=== PATIENT | male | born 1955 | race Caucasian/White ===

== ENCOUNTER → 2018-06-14 13:17 | Outpatient (CLI) | payer OTHER, SELFPAY ==
--- NOTE | 2018-06-14 13:19 | DI.MRI.S_ITS ---
PROCEDURE: MR HEAD/BRAIN WO CON INDICATIONS: 62-year-old male with progressive memory loss. TECHNIQUE: Non-contrast axial T1 spin echo, axial T2 fast spin echo, sagittal and axial FLAIR, coronal T2 fast spin echo, axial gradient echo, axial diffusion and ADC through the brain. COMPARISON: [facility], RG, MRI HEAD W/WO CONTRAST, 02/15/2004, 6:14. [facility], CT, HEAD WITHOUT CONTRAST, 07/28/2013, 19:02. FINDINGS: Image quality: Partially degraded by motion artifact. CSF spaces: Ventricles appear symmetric in size and shape. Basal cisterns are patent. No extra-axial fluid collections. Brain: No intracranial bleeds or mass effects. Small chronic left cerebellar infarct. There is cerebral volume loss for age. There are periventricular and deep white matter chronic small vessel ischemic changes. Brainstem appears normal. Diffusion-weighted images show no acute ischemic insults. No chronic ischemic insults. Normal intravascular flow voids are present. Skull and face: Calvarial bone marrow is normal in signal. Orbits are normal. Sinuses: Mild right maxillary sinus the coastal thickening. Minimal left maxillary sinus mucosal thickening. IMPRESSION: 1. Mild volume loss. Mild small vessel ischemic disease. 2. Small chronic left cerebellar infarct. 3. No acute process. 4. Maxillary sinus disease. Dictated by: Shyam Jimenez M.D. on 06/16/2018 at 8:54 Approved by: Shyam Jimenez M.D. on 06/16/2018 at 8:56
== END ==
PROVIDERS: Visit Provider Internal Medicine
DX: G31.84 Mild cognitive impairment of uncertain or unknown etiology (principal); I67.82 Cerebral ischemia; I63.9 Cerebral infarction, unspecified; J32.0 Chronic maxillary sinusitis
CPT/HCPCS: 70551

== ENCOUNTER 2018-06-18 13:38 | Emergency (ER) | payer OTHER, SELFPAY ==
[2018-06-18 13:43] VITALS: BP 190/77; PULSE 58; RESP 18; TEMP 36.5; O2SAT 99
--- NOTE | 2018-06-18 14:09 | ED_ITS ---
HPI - SOB/Dyspnea General Chief Complaint: Shortness of Breath/Dyspnea Stated Complaint: heart rate 42-48, difficult to breathe Time Seen by Provider: 06/18/18 13:53 Related Data Home Medications Medication Instructions Recorded Confirmed epoetin ryan [Epogen] IM/IV #0 06/04/16 ferrous sulfate [Iron (ferrous 1 tab PO Q DAY #0 06/04/16 sulfate)] Previous Rx's Medication Instructions Recorded ondansetron [Zofran ODT] 4 mg SUBLINGUAL Q6HP PRN #12 odt 06/04/16 Allergies Allergy/AdvReac Type Severity Reaction Status Date / Time codeine [CODEINE] Allergy Intermediate Unverified 10/09/17 12:00 morphine [MORPHINE] Allergy Unknown Unverified 10/09/17 12:00 influenza virus vaccine, AdvReac Severe WAS IN Unverified 10/09/17 12:00 specific COMA X3 WKS [INFLUENZA VIRUS VACC,SPECIFIC] duloxetine [DULOXETINE] AdvReac Intermediate SUICIDAL Unverified 10/09/17 12:00 IDEATION levofloxacin [LEVOFLOXACIN] AdvReac Intermediate KNOCKED Unverified 10/09/17 12 :00 OUT; FELL ON FLOOR diazepam [DIAZEPAM] AdvReac Mild STONED Unverified 10/09/17 12:00 FOR 3-5 DAYS TOBACCO Allergy Mild Uncoded 10/09/17 12:00 [facility] Social History Smoking Status: Never smoker Exam Initial Vital Signs Initial Vital Signs: Vital Signs Temperature 97.7 F 06/18/18 13:43 Pulse Rate 58 L 06/18/18 13:43 Respiratory Rate 18 06/18/18 13:43 Blood Pressure 190/77 H 06/18/18 13:43 Pulse Oximetry 99 06/18/18 13:43 Course Orders Ordered: ED Orders 06/18/18 13:55 EKG-12 Lead Routine Vital Signs - 8 hr 06/18/18 13:43 Temperature 97.7 F Pulse Rate 58 L Respiratory Rate 18 Blood Pressure 190/77 H Pulse Oximetry 99 Discharge Plan Departure Prescriptions: No Action ferrous sulfate [Iron (ferrous sulfate)] 325 MG tablet 1 tab PO Q DAY Qty: 0 RF: 0 epoetin ryan [Epogen] 10,000 UNIT/1 ML solution IM/IV Qty: 0 RF: 0 ondansetron [Zofran ODT] 4 MG tablet,disintegrating 4 mg Sublingual Q6HP PRNQty: 12 RF: 0
--- NOTE | 2018-06-18 14:25 | PC.NURSE ---
change of medication dosing, atenolol increase to 100mg the last two days, today pt with foggy, red fog, no clear pt reports, with multiple eye surgery, pt checked his blood glucose normal, and noted heart rate at 45, usually 70's
--- NOTE | 2018-06-18 14:27 | PC.NURSE ---
also pt reports, uri sxs the last 6 months pt dialysis schedule sat,,sat. sometimes saturday and saturday, depending on fluid levels. pt denies fever,nausea or vomiting.
[2018-06-18 14:30] VITALS: BP 145/45; PULSE 53; RESP 21; O2SAT 100
--- NOTE | 2018-06-18 14:30 | DI.RAD.S_ITS ---
PROCEDURE: XR CHEST 1V INDICATIONS: decrease heart rate TECHNIQUE: One view of the chest was acquired. COMPARISON: [facility], , CHEST 1 VIEW, 06/05/2016, 18:05. FINDINGS: Surgical changes and devices: None. Lungs and pleura: No pleural effusions or pneumothorax. Lungs are clear. Mediastinum: Mediastinal contours appear normal. Heart size is enlarged. Bones and chest wall: No suspicious bony lesions. Overlying soft tissues appear unremarkable. IMPRESSION: Cardiomegaly. No acute pulmonary pathology. Dictated by: Jim Olvera M.D. on 06/18/2018 at 14:47 Approved by: Jim Olvera M.D. on 06/18/2018 at 14:47
[2018-06-18 14:39] LABS: Add Manual Diff / Slide Review NO; Basophils Percent Auto 0.6 % (0-2); Hematocrit 32.6 % (41-53); Mean Corpuscular HGB Conc 33.7 % (30-36); Mean Corpuscular Hemoglobin 32.4 PG (26-34); Mean Corpuscular Volume 96.1 fL (80-100); Monocytes Percent Auto 7.5 % (3-14); Neutrophils Absolute Auto 5100 /uL (1500-7000); Neutrophils Percent Auto 64.9 % (50-75); Platelet Count 303 X10^3/uL (150-400); Red Blood Cell Count 3.39 X10^6/uL (4.5-5.9); Red Cell Distribution Width 14.4 % (11.6-14.8); White Blood Cell Count 7.9 X10^3/uL (4.5-11.0)
[2018-06-18 14:45] LABS: Alanine Aminotransferase 33 IU/L (21-72); Albumin 4.5 g/dL (3.5-5.0); Albumin Globulin Ratio 1.6 (1.0-2.8); Alkaline Phosphatase 73 U/L (38-126); Aspartate Aminotransferase 35 IU/L (17-59); BUN Creatinine Ratio 16.3 (6-22); Bilirubin Total 0.3 mg/dL (0.2-1.3); Blood Urea Nitrogen 52 mg/dL (9-20); Calcium 9.1 mg/dL (8.4-10.2); Carbon Dioxide 22 mmol/L (22-32); Chloride 101 mmol/L (98-107); Creatine Kinase 185 U/L (55-170); Estimated Glomerular Filt Rate 19.7 mL/min (>60); Globulin 2.9 g/dL (1.7-4.1); Glucose 248 mg/dL (80-110); Potassium 5.5 mmol/L (3.4-5.1); Sodium 139 mmol/L (137-145); Total Protein 7.4 g/dL (6.3-8.2)
[2018-06-18 14:57] LABS: Troponin I 0.051 ng/mL (0.01-0.034)
[2018-06-18 15:00] LABS: CKMB % Relative Index 2.2 % (1.5-5.0); Creatine Kinase MB 3.98 ng/mL (<2.37); HEMOLYSIS < 15 (0-50)
--- NOTE | 2018-06-18 15:25 | PC.NURSE ---
dr mattson made aware of elevated trop. no new orders.
--- NOTE | 2018-07-01 05:54 | ED.SOB ---
HPI - SOB/Dyspnea General Chief Complaint: Shortness of Breath/Dyspnea Stated Complaint: heart rate 42-48, difficult to breathe Time Seen by Provider: 06/18/18 13:53 Source: patient Mode of arrival: ambulatory Limitations: no limitations History of Present Illness Patient complains of feeling fatigued and noticing that his heart rate was low for the last couple of days. Patient states that a few days ago, his atenolol was increased from 50 mg to 100 mg daily, and the patient believes this is too much. He states that his blood pressure has been difficult to control, which is why his physician increased his atenolol. Patient states that he has not had any dyspnea per se, but that the tiredness does make him sometimes have a feeling of shortness of breath. Patient denies any abdominal pain or chest pain. He states he intends to go back to his prior dose of atenolol. Related Data Home Medications Medication Instructions Recorded Confirmed albuterol sulfate [ProAir HFA] 1 puff INHALATION PRN PRN 06/18/18 06/18/18 amlodipine 10 mg PO DAILY 06/18/18 06/18/18 atenolol 50 mg PO DAILY 06/18/18 06/18/18 azelastine 06/18/18 ezetimibe [Zetia] 10 mg PO DAILY 06/18/18 06/18/18 fluticasone-salmeterol [Advair 1 puff INHALATION BID 06/18/18 06/18/18 Diskus] gemfibrozil 600 mg PO DAILY 06/18/18 06/18/18 insulin regular hum U-500 conc 06/18/18 [Humulin R U-500 (Conc) Kwikpen] loratadine 10 mg PO DAILY 06/18/18 06/18/18 losartan 100 mg PO DAILY 06/18/18 06/18/18 Allergies Allergy/AdvReac Type Severity Reaction Status Date / Time codeine [CODEINE] Allergy Intermediate Unverified 10/09/17 12:00 morphine [MORPHINE] Allergy Unknown Unverified 10/09/17 12:00 influenza virus vaccine, AdvReac Severe WAS IN Unverified 10/09/17 12:00 specific COMA X3 WKS [INFLUENZA VIRUS VACC,SPECIFIC] duloxetine [DULOXETINE] AdvReac Intermediate SUICIDAL Unverified 10/09/17 12:00 IDEATION levofloxacin [LEVOFLOXACIN] AdvReac Intermediate KNOCKED Unverified 10/09/17 12:00 OUT; FELL ON FLOOR diazepam [DIAZEPAM] AdvReac Mild STONED Unverified 10/09/17 12:00 FOR 3-5 DAYS TOBACCO Allergy Mild Uncoded 10/09/17 12:00 Review of Systems Review of Systems All systems reviewed & are unremarkable except as noted in HPI and below Constitutional Denies chills, Denies fever(s), Denies lethargy and Denies weakness Comments: Fatigue Eyes Denies change in vision, Denies eye discharge, Denies irritation and Denies loss of vision ENT Ears, Nose, Mouth, and Throat: Denies change in voice, Denies neck pain and Denies sore throat Cardiovascular Denies chest pain, Denies irregular heart rhythm, Denies lightheadedness, Denies palpitations, Denies dyspnea, Denies dyspnea on exertion and Denies orthopnea Comments: Bradycardia Respiratory Denies cough, Denies dyspnea, Denies dyspnea on exertion and Denies wheezing Gastrointestinal Gastrointestinal: Denies abdominal pain, Denies change in bowel habits, Denies diarrhea, Denies nausea and Denies vomiting Genitourinary Denies hematuria, Denies flank pain, Denies urinary incontinence and Denies urinary urgency Musculoskeletal Denies neck pain Integumentary/Breasts Denies pruritus, Denies erythema, Denies rash and Denies wounds Neurologic Denies confusion, Denies loss of vision and Denies weakness Psychiatric Denies anxiety, Denies confusion, Denies depression, Denies homicidal ideation and Denies suicidal ideation Endocrine Denies palpitations Hematologic/Lymphatic Denies easy bruising Allergic/Immunologic Denies wheezing [facility] Medical History Acute exacerbation of CHF (congestive heart failure) (Acute) Nausea vomiting and diarrhea (Acute) NSTEMI (non-ST elevated myocardial infarction) (Acute) Viral gastroenteritis (Acute) Stage 4 chronic kidney disease (Acute) Calf pain (Acute) Contusion, lower leg (Acute) Surgical History No pertinent past surgical history (Acute) Social History Smoking Status: Never smoker Exam Initial Vital Signs Initial Vital Signs: Vital Signs Temperature 97.7 F 06/18/18 13:43 Pulse Rate 58 L 06/18/18 13:43 Respiratory Rate 18 06/18/18 13:43 Blood Pressure 190/77 H 06/18/18 13:43 Pulse Oximetry 99 06/18/18 13:43 Const General: cooperative and well developed Nutritional Appearance: well nourished Orientation: alert, awake, oriented x3 and not confused [facility] Head: normocephalic and atraumatic Ears: external ears normal and TM's normal bilaterally Nose: external nose normal and No nasal discharge Face and sinus: sinuses nontender, face symmetric, no sinus tenderness and No dry mucous membranes Mouth: oral mucosae normal and moist mucous membranes Teeth and gingiva: dentition normal Throat: tonsils normal and uvula midline Eyes General: appearance normal, both eyes and all related structures Eyelids: eyelids normal Conjunctivae: conjunctivae normal Sclera: sclerae normal Pupils: PERRL EOM: EOM intact bilaterally Neck Neck: normal visual inspection, trachea midline, No lymphadenopathy, No midline deformity and No JVD Lymphatic: No lymphedema Chest Chest: normal inspection of the chest Resp Effort & Inspection: normal respiratory effort, able to speak in complete sentences, no respiratory distress and no use of accessory muscles Auscultation: clear to auscultation bilaterally, no rales, no rhonchi and no wheezes Cardio Rate: bradycardic Rhythm: regular rhythm Heart Sounds: no click, no gallops, no murmurs and no rubs Pulses: normal peripheral pulses GI Inspection: non-distended Palpation: soft, no hepatosplenomegaly, No guarding, No pulsatile mass and No tender Auscultation: normal bowel sounds Back/Spine/Pelvis Back: No CVA tenderness Cervical Spine: cervical ROM normal and No pain with cervical ROM Thoracic/Lumbar Spine: thoracic and lumbar spine normal to inspection Skin General: no rashes or lesions noted, No jaundice and No petechiae Neuro General: alert, oriented x3, gait normal and no focal motor deficits Speech: speech normal Extrem General: full ROM, no clubbing, cyanosis or edema, no pedal edema and no calf tenderness Psych Appearance: well kempt Mental Status: mental status grossly normal Attitude: cooperative Thought Content: normal and suicidality Judgment: judgment good Course Course Narrative: Patient was worked up with labs and EKG. EKG showed sinus bradycardia without clear-cut acute findings otherwise. Labs were unremarkable. I discussed with the patient the rather than going back to the 50 mg per day of atenolol, it would be most advisable for him to cut down to 75 instead of the full 100 and see if this gives him the blood pressure control that is needed, without causing the symptomatic bradycardia. Patient states that he will consider this. However, he states he is going to call his fleecer tomorrow. I have advised him that that is a good idea. We have discussed the usual indications for return. MDM - SOB/Dyspnea Medical Records Attestation: I reviewed the patient's medical records. Lab Data Attestation: I reviewed the patient's lab results. Result diagrams: 06/18/18 14:15 06/18/18 14:15 Lab Results 06/18/18 06/18/18 Range/Units 14:15 14:15 WBC 7.9 (4.5-11.0) X10^3/uL RBC 3.39 L (4.5-5.9) X10^6/uL Hgb 11.0 L (13.5-17.5) g/dL Hct 32.6 L (41-53) % MCV 96.1 (80-100) fL MCH 32.4 (26-34) PG MCHC 33.7 (30-36) % RDW 14.4 (11.6-14.8) % Plt Count 303 (150-400) X10^3/uL Neut % (Auto) 64.9 (50-75) % Lymph % (Auto) 22.0 L (25-40) % [place] % (Auto) 7.5 (3-14) % Eos % (Auto) 5.0 H (2-4) % Baso % (Auto) 0.6 (0-2) % Neut # (Auto) 5100 (7424-1915) /uL Sodium 139 (137-145) mmol/L Potassium 5.5 H (3.4-5.1) mmol/L Chloride 101 (98-107) mmol/L Carbon Dioxide 22 (22-32) mmol/L BUN 52 H (9-20) mg/dL Creatinine 3.20 H (0.66-1.25) mg/dL Estimated GFR 19.7 L (>60) mL/min BUN/Creatinine Ratio 16.3 (6-22) Glucose 248 H (80-110) mg/dL Calcium 9.1 (8.4-10.2) mg/dL Total Bilirubin 0.3 (0.2-1.3) mg/dL AST 35 (17-59) IU/L ALT 33 (21-72) IU/L Alkaline Phosphatase 73 (38-126) U/L Total Creatine Kinase 185 H (55-170) U/L CK-MB (CK-2) 3.98 H (<2.37) ng/mL CK-MB (CK-2) Rel Index 2.2 (1.5-5.0) % Troponin I 0.051 H (0.01-0.034) ng/mL Total Protein 7.4 (6.3-8.2) g/dL Albumin 4.5 (3.5-5.0) g/dL Globulin 2.9 (1.7-4.1) g/dL Albumin/Globulin Ratio 1.6 (1.0-2.8) ECG Data Attestation: I personally reviewed and interpreted this ECG as follows: (See below) Interpretation: Twelve lead EKG performed June 18, 2018 at 1:55 p.m., as follows: Regular ventricular rhythm with a rate of 56 beats per minute LA Interval 238 milliseconds QRS duration 126 millisecond QTC interval [address] T wave changes In summary: Sinus bradycardia with sinus arrhythmia with first-degree AV block; marked left axis deviation; left ventricular hypertrophy; possible lateral WI of indeterminate age; abnormal EKG as interpreted by ED MD. Discharge Plan Departure Patient Disposition: Home Clinical Impression: Symptomatic bradycardia Discharge Date/Time: 06/18/18 15:25 Interventions: ED Discharge Assessment Last Done: 06/18/18 15:24 Instructions: DI for Bradycardia Activity Restrictions/Additional Instructions: Please consider trying atenolol at 75 mg a day instead of 100mg a day, and see if that improves your blood pressure without dropping your heart rate so much. Please call your doctor's office this afternoon to make an appointment to be seen this week, if possible. Your labs, EKG, and chest x-ray look good. Prescriptions: No Action fluticasone-salmeterol [Advair Diskus] 250-50 mcg/dose blister with device 1 puff Inhalation BID RF: 0 amlodipine 10 mg tablet 10 mg PO DAILY RF: 0 gemfibrozil 600 mg tablet 600 mg PO DAILY RF: 0 azelastine 137 mcg (0.1 %) aerosol,spray RF: 0 albuterol sulfate [ProAir HFA] 90 mcg/actuation HFA aerosol inhaler 1 puff Inhalation PRN PRN (Reason: Shortness Of Breath) RF: 0 losartan 100 mg tablet 100 mg PO DAILY RF: 0 atenolol 50 mg tablet 50 mg PO DAILY RF: 0 loratadine 10 mg tablet 10 mg PO DAILY RF: 0 ezetimibe [Zetia] 10 mg tablet 10 mg PO DAILY RF: 0 insulin regular hum U-500 conc [Humulin R U-500 (Conc) Mattpen] 500 unit/mL (3 mL) insulin pen RF: 0
--- NOTE | 2018-07-01 06:05 | ED_ITS ---
HPI - SOB/Dyspnea General Chief Complaint: Shortness of Breath/Dyspnea Stated Complaint: heart rate 42-48, difficult to breathe Time Seen by Provider: 06/18/18 13:53 Source: patient Mode of arrival: ambulatory Limitations: no limitations History of Present Illness Patient complains of feeling fatigued and noticing that his heart rate was low for the last couple of days. Patient states that a few days ago, his atenolol was increased from 50 mg to 100 mg daily, and the patient believes this is too much. He states that his blood pressure has been difficult to control, which is why his physician increased his atenolol. Patient states that he has not had any dyspnea per se, but that the tiredness does make him sometimes have a feeling of shortness of breath. Patient denies any abdominal pain or chest pain. He states he intends to go back to his prior dose of atenolol. Related Data Home Medications Medication Instructions Recorded Confirmed albuterol sulfate [ProAir HFA] 1 puff INHALATION PRN PRN 06/18/18 06/18/18 amlodipine 10 mg PO DAILY 06/18/18 06/18/18 atenolol 50 mg PO DAILY 06/18/18 06/18/18 azelastine 06/18/18 ezetimibe [Zetia] 10 mg PO DAILY 06/18/18 06/18/18 fluticasone-salmeterol [Advair 1 puff INHALATION BID 06/18/18 06/18/18 Diskus] gemfibrozil 600 mg PO DAILY 06/18/18 06/18/18 insulin regular hum U-500 conc 06/18/18 [Humulin R U-500 (Conc) Kwikpen] loratadine 10 mg PO DAILY 06/18/18 06/18/18 losartan 100 mg PO DAILY 06/18/18 06/18/18 Allergies Allergy/AdvReac Type Severity Reaction Status Date / Time codeine [CODEINE] Allergy Intermediate Unverified 10/09/17 12:00 morphine [MORPHINE] Allergy Unknown Unverified 10/09/17 12:00 influenza virus vaccine, AdvReac Severe WAS IN Unverified 10/09/17 12:00 specific COMA X3 WKS [INFLUENZA VIRUS VACC,SPECIFIC] duloxetine [DULOXETINE] AdvReac Intermediate SUICIDAL Unverified 10/09/17 12:00 IDEATION levofloxacin [LEVOFLOXACIN] AdvReac Intermediate KNOCKED Unverified 10/09/17 12 :00 OUT; FELL ON FLOOR diazepam [DIAZEPAM] AdvReac Mild STONED Unverified 10/09/17 12:00 FOR 3-5 DAYS TOBACCO Allergy Mild Uncoded 10/09/17 12:00 Review of Systems Review of Systems All systems reviewed & are unremarkable except as noted in HPI and below Constitutional Denies chills, Denies fever(s), Denies lethargy and Denies weakness Comments: Fatigue Eyes Denies change in vision, Denies eye discharge, Denies irritation and Denies loss of vision ENT Ears, Nose, Mouth, and Throat: Denies change in voice, Denies neck pain and Denies sore throat Cardiovascular Denies chest pain, Denies irregular heart rhythm, Denies lightheadedness, Denies palpitations, Denies dyspnea, Denies dyspnea on exertion and Denies orthopnea Comments: Bradycardia Respiratory Denies cough, Denies dyspnea, Denies dyspnea on exertion and Denies wheezing Gastrointestinal Gastrointestinal: Denies abdominal pain, Denies change in bowel habits, Denies diarrhea, Denies nausea and Denies vomiting Genitourinary Denies hematuria, Denies flank pain, Denies urinary incontinence and Denies urinary urgency Musculoskeletal Denies neck pain Integumentary/Breasts Denies pruritus, Denies erythema, Denies rash and Denies wounds Neurologic Denies confusion, Denies loss of vision and Denies weakness Psychiatric Denies anxiety, Denies confusion, Denies depression, Denies homicidal ideation and Denies suicidal ideation Endocrine Denies palpitations Hematologic/Lymphatic Denies easy bruising Allergic/Immunologic Denies wheezing [facility] Medical History Acute exacerbation of CHF (congestive heart failure) (Acute) Nausea vomiting and diarrhea (Acute) NSTEMI (non-ST elevated myocardial infarction) (Acute) Viral gastroenteritis (Acute) Stage 4 chronic kidney disease (Acute) Calf pain (Acute) Contusion, lower leg (Acute) Surgical History No pertinent past surgical history (Acute) Social History Smoking Status: Never smoker Exam Initial Vital Signs Initial Vital Signs: Vital Signs Temperature 97.7 F 06/18/18 13:43 Pulse Rate 58 L 06/18/18 13:43 Respiratory Rate 18 06/18/18 13:43 Blood Pressure 190/77 H 06/18/18 13:43 Pulse Oximetry 99 06/18/18 13:43 Const General: cooperative and well developed Nutritional Appearance: well nourished Orientation: alert, awake, oriented x3 and not confused [facility] Head: normocephalic and atraumatic Ears: external ears normal and TM's normal bilaterally Nose: external nose normal and No nasal discharge Face and sinus: sinuses nontender, face symmetric, no sinus tenderness and No dry mucous membranes Mouth: oral mucosae normal and moist mucous membranes Teeth and gingiva: dentition normal Throat: tonsils normal and uvula midline Eyes General: appearance normal, both eyes and all related structures Eyelids: eyelids normal Conjunctivae: conjunctivae normal Sclera: sclerae normal Pupils: PERRL EOM: EOM intact bilaterally Neck Neck: normal visual inspection, trachea midline, No lymphadenopathy, No midline deformity and No JVD Lymphatic: No lymphedema Chest Chest: normal inspection of the chest Resp Effort & Inspection: normal respiratory effort, able to speak in complete sentences, no respiratory distress and no use of accessory muscles Auscultation: clear to auscultation bilaterally, no rales, no rhonchi and no wheezes Cardio Rate: bradycardic Rhythm: regular rhythm Heart Sounds: no click, no gallops, no murmurs and no rubs Pulses: normal peripheral pulses GI Inspection: non-distended Palpation: soft, no hepatosplenomegaly, No guarding, No pulsatile mass and No tender Auscultation: normal bowel sounds Back/Spine/Pelvis Back: No CVA tenderness Cervical Spine: cervical ROM normal and No pain with cervical ROM Thoracic/Lumbar Spine: thoracic and lumbar spine normal to inspection Skin General: no rashes or lesions noted, No jaundice and No petechiae Neuro General: alert, oriented x3, gait normal and no focal motor deficits Speech: speech normal Extrem General: full ROM, no clubbing, cyanosis or edema, no pedal edema and no calf tenderness Psych Appearance: well kempt Mental Status: mental status grossly normal Attitude: cooperative Thought Content: normal and suicidality Judgment: judgment good Course Course Narrative: Patient was worked up with labs and EKG. EKG showed sinus bradycardia without clear-cut acute findings otherwise. Labs were unremarkable. I discussed with the patient the rather than going back to the 50 mg per day of atenolol, it would be most advisable for him to cut down to 75 instead of the full 100 and see if this gives him the blood pressure control that is needed, without causing the symptomatic bradycardia. Patient states that he will consider this. 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 I have advised him that that is a good idea. We have discussed the usual indications for return. MDM - SOB/Dyspnea Medical Records Attestation: I reviewed the patient's medical records. Lab Data Attestation: I reviewed the patient's lab results. Result diagrams: 06/18/18 14:15 06/18/18 14:15 Lab Results 06/18/18 06/18/18 Range/Units 14:15 14:15 WBC 7.9 (4.5-11.0) X10^3/uL RBC 3.39 L (4.5-5.9) X10^6/uL Hgb 11.0 L (13.5-17.5) g/dL Hct 32.6 L (41-53) % MCV 96.1 (80-100) fL MCH 32.4 (26-34) PG MCHC 33.7 (30-36) % RDW 14.4 (11.6-14.8) % Plt Count 303 (150-400) X10^3/uL Neut % (Auto) 64.9 (50-75) % Lymph % (Auto) 22.0 L (25-40) % [place] % (Auto) 7.5 (3-14) % Eos % (Auto) 5.0 H (2-4) % Baso % (Auto) 0.6 (0-2) % Neut # (Auto) 5100 (0292-9782) /uL Sodium 139 (137-145) mmol/L Potassium 5.5 H (3.4-5.1) mmol/L Chloride 101 (98-107) mmol/L Carbon Dioxide 22 (22-32) mmol/L BUN 52 H (9-20) mg/dL Creatinine 3.20 H (0.66-1.25) mg/dL Estimated GFR 19.7 L (>60) mL/min BUN/Creatinine Ratio 16.3 (6-22) Glucose 248 H (80-110) mg/dL Calcium 9.1 (8.4-10.2) mg/dL Total Bilirubin 0.3 (0.2-1.3) mg/dL AST 35 (17-59) IU/L ALT 33 (21-72) IU/L Alkaline Phosphatase 73 (38-126) U/L Total Creatine Kinase 185 H (55-170) U/L CK-MB (CK-2) 3.98 H (<2.37) ng/mL CK-MB (CK-2) Rel Index 2.2 (1.5-5.0) % Troponin I 0.051 H (0.01-0.034) ng/mL Total Protein 7.4 (6.3-8.2) g/dL Albumin 4.5 (3.5-5.0) g/dL Globulin 2.9 (1.7-4.1) g/dL Albumin/Globulin Ratio 1.6 (1.0-2.8) ECG Data Attestation: I personally reviewed and interpreted this ECG as follows: (See below) Interpretation: Twelve lead EKG performed June 18, 2018 at 1:55 p.m., as follows: Regular ventricular rhythm with a rate of 56 beats per minute MI Interval 238 milliseconds QRS duration 126 millisecond QTC interval [address] T wave changes In summary: Sinus bradycardia with sinus arrhythmia with first-degree AV block ; marked left axis deviation; left ventricular hypertrophy; possible lateral NC of indeterminate age; abnormal EKG as interpreted by ED MD. Discharge Plan Departure Patient Disposition: Home Clinical Impression: Symptomatic bradycardia Discharge Date/Time: 06/18/18 15:25 Interventions: ED Discharge Assessment Last Done: 06/18/18 15:24 Instructions: DI for Bradycardia Activity Restrictions/Additional Instructions: Please consider trying atenolol at 75 mg a day instead of 100mg a day, and see if that improves your blood pressure without dropping your heart rate so much. Please call your doctor's office this afternoon to make an appointment to be seen this week, if possible. Your labs, EKG, and chest x-ray look good. Prescriptions: No Action fluticasone-salmeterol [Advair Diskus] 250-50 mcg/dose blister with device 1 puff Inhalation BID RF: 0 amlodipine 10 mg tablet 10 mg PO DAILY RF: 0 gemfibrozil 600 mg tablet 600 mg PO DAILY RF: 0 azelastine 137 mcg (0.1 %) aerosol,spray RF: 0 albuterol sulfate [ProAir HFA] 90 mcg/actuation HFA aerosol inhaler 1 puff Inhalation PRN PRN (Reason: Shortness Of Breath) RF: 0 losartan 100 mg tablet 100 mg PO DAILY RF: 0 atenolol 50 mg tablet 50 mg PO DAILY RF: 0 loratadine 10 mg tablet 10 mg PO DAILY RF: 0 ezetimibe [Zetia] 10 mg tablet 10 mg PO DAILY RF: 0 insulin regular hum U-500 conc [Humulin R U-500 (Conc) Mattpen] 500 unit/mL ( 3 mL) insulin pen RF: 0
== END 2018-06-18 15:25 | disposition home or self-care (01) ==
PROVIDERS: Emergency Provider Emergency Medicine
DX: R00.1 Bradycardia, unspecified (principal)
CPT/HCPCS: 36591; 71045; 80053; 82550; 82553; 84484; 85025; 93005; 99282; 99285

== ENCOUNTER 2020-12-18 19:48 | Emergency (ER) | payer MEDICARE, OTHER, SELFPAY ==
[2020-12-18] VITALS (9 sets, daily range): BP systolic 134–175; BP diastolic 67–79; PULSE 60–85; RESP 18–32; TEMP 36.8–37; O2SAT 96–99; BMI 32.3
--- NOTE | 2020-12-18 20:49 | DI.RAD.S_ITS ---
PROCEDURE: XR CHEST 1V INDICATIONS: suspected sepsis TECHNIQUE: One view of the chest was acquired. COMPARISON: [facility], CR, XR CHEST 1V, 06/18/2018, 14:54. FINDINGS: Surgical changes and devices: None. Lungs and pleura: Minimal streaky bibasilar opacities. No focal consolidation. No pleural effusions or pneumothorax. Mediastinum: Mediastinal contours appear stable. Heart size is enlarged. Bones and chest wall: No suspicious bony lesions. Overlying soft tissues appear unremarkable. IMPRESSION: Stable examination of the chest with persistent cardiomegaly. No acute cardiopulmonary process identified. Dictated by: Parrish Shaw M.D. on 12/18/2020 at 22:42 Approved by: Parrish Shaw M.D. on 12/18/2020 at 22:44
[2020-12-18 21:16] LABS: Add Manual Diff / Slide Review NO; Basophils Absolute Auto 100 /uL (0-100); Basophils Percent Auto 1.2 % (0-2); Eosinophils Absolute Auto 400 /uL (0-450); Eosinophils Percent Auto 4.1 % (2-4); Hematocrit 34.1 % (41-53); Hemoglobin 11.1 g/dL (13.5-17.5); Lymphocytes Absolute Auto 1200 /uL (1100-4500); Lymphocytes Percent Auto 13.7 % (25-40); Mean Corpuscular HGB Conc 32.5 % (30-36); Mean Corpuscular Hemoglobin 30.4 PG (26-34); Mean Corpuscular Volume 93.5 fL (80-100); Monocytes Absolute Auto 700 /uL (0-900); Monocytes Percent Auto 8.6 % (3-14); Neutrophils Absolute Auto 6200 /uL (1500-7000); Neutrophils Percent Auto 72.4 % (50-75); Platelet Count 319 X10^3/uL (150-400); Red Blood Cell Count 3.64 X10^6/uL (4.5-5.9); Red Cell Distribution Width 16.1 % (11.6-14.8); White Blood Cell Count 8.5 X10^3/uL (4.5-11.0)
[2020-12-18 21:24] LABS: Lactate (Lactic Acid) 1.1 mmol/L (0.7-2.1)
[2020-12-18 21:25] LABS: Alanine Aminotransferase 13 IU/L (<50); Albumin 4.4 g/dL (3.5-5.0); Albumin Globulin Ratio 1.5 (1.0-2.8); Alkaline Phosphatase 90 U/L (38-126); Aspartate Aminotransferase 21 IU/L (17-59); BUN Creatinine Ratio 9.1 (6-22); Bilirubin Total 0.6 mg/dL (0.2-1.3); Blood Urea Nitrogen 41 mg/dL (9-20); Calcium 9.7 mg/dL (8.4-10.2); Carbon Dioxide 26 mmol/L (22-32); Chloride 98 mmol/L (98-107); Estimated Glomerular Filt Rate 13.1 mL/min (>60); Glucose 281 mg/dL (80-110); HEMOLYSIS < 15 (0-50); Lipase 118 U/L (23-300); Sodium 138 mmol/L (137-145); Total Protein 7.4 g/dL (6.3-8.2)
[2020-12-18 21:27] LABS: Potassium 5.3 mmol/L (3.4-5.1)
[2020-12-18 21:42] LABS: Procalcitonin 0.44 ng/mL (<0.5)
--- NOTE | 2020-12-18 21:54 | ED.WOUNDLAC ---
HPI - Wound/Laceration General Chief Complaint: Wound/Laceration Stated Complaint: Gash on Right Foot Time Seen by Provider: 12/18/20 21:41 Source: patient Mode of arrival: Family Vehicle Limitations: no limitations History of Present Illness HPI narrative: Patient is a 65-year-old male with insulin-dependent diabetes on dialysis hypertension hyperlipidemia presenting with right leg redness. Of he is at a family reunion today when somebody noticed that his right leg was red. He did not notice a yesterday. He does try to look at the bottom of his feet every day with me are. However about a month ago he has an injury to his right hip and thigh which he has lidocaine patches for but because of the pain in that area he is unable to get into position to look at the bottom of his right foot. He is found to have a 3 cm laceration in the bottom of his right foot. He is completely unaware that he had it he is unsure how he got it or how long it has been that. It he denies any fever chills or body aches. Related Data Home Medications Medication Instructions Recorded Confirmed albuterol sulfate [ProAir HFA] 1 puff INHALATION PRN PRN 06/18/18 06/18/18 amlodipine 10 mg PO DAILY 06/18/18 06/18/18 atenolol 50 mg PO DAILY 06/18/18 06/18/18 azelastine 06/18/18 ezetimibe [Zetia] 10 mg PO DAILY 06/18/18 06/18/18 fluticasone propion-salmeterol 1 puff INHALATION BID 06/18/18 06/18/18 [Advair Diskus] gemfibrozil 600 mg PO DAILY 06/18/18 06/18/18 insulin regular hum U-500 conc 06/18/18 [Humulin R U-500 (Conc) Kwikpen] loratadine 10 mg PO DAILY 06/18/18 06/18/18 losartan 100 mg PO DAILY 06/18/18 06/18/18 Previous Rx's Medication Instructions Recorded cefdinir 300 mg PO .q48 #7 cap 12/18/20 Allergies Allergy/AdvReac Type Severity Reaction Status Date / Time codeine [CODEINE] Allergy Intermediate Verified 12/18/20 20:06 morphine [MORPHINE] Allergy Unknown Verified 12/18/20 20:06 influenza virus vaccine, AdvReac Severe WAS IN Verified 12/18/20 20:06 specific COMA X3 WKS [INFLUENZA VIRUS VACC,SPECIFIC] duloxetine [DULOXETINE] AdvReac Intermediate SUICIDAL Verified 12/18/20 20:06 IDEATION levofloxacin [LEVOFLOXACIN] AdvReac Intermediate KNOCKED Verified 12/18/20 20:06 OUT; FELL ON FLOOR diazepam [DIAZEPAM] AdvReac Mild STONED Verified 12/18/20 20:06 FOR 3-5 DAYS TOBACCO Allergy Mild Uncoded 12/18/20 20:06 Review of Systems Review of Systems Narrative: GENERAL: Denies chills, fatigue, malaise, fever, sweats, travel HEENT: Denies sinus pain, ear pain, sore throat, difficulty swallowing, neck pain RESPIRATORY: Denies dyspnea, cough, wheezing, hemoptysis, sputum. CARDIOVASCULAR: Denies chest pain, palpitations, orthopnea, edema GASTROINTESTINAL: Denies nausea, vomiting, abdominal pain, diarrhea, constipation, melena. : Denies dysuria, frequency, incontinence, hematuria, urinary retention, flank pain. MUSCULOSKELETAL: Denies weakness, joint pain, or bony pain SKIN: See HPI NEUROLOGIC: Denies weakness, dizziness, headache, numbness, change in speech, confusion PSYCHIATRIC: No concerning psychosocial issues. 12 point review of systems is negative except for those stated above and HPI Patient History Medical History (Updated 12/18/20 @ 22:11 by Nathalie Ruiz DO) Acute exacerbation of CHF (congestive heart failure) Calf pain Contusion, lower leg Diabetes Nausea vomiting and diarrhea NSTEMI (non-ST elevated myocardial infarction) Stage 4 chronic kidney disease Viral gastroenteritis Surgical History No pertinent past surgical history Social History Smoking Status: Never smoker Smoking Status: Never smoker alcohol intake frequency: 0-2 drinks per day Substance Use Type: does not use Exam Initial Vital Signs Initial Vital Signs: Vital Signs Temperature 98.6 F 12/18/20 20:06 Pulse Rate 79 12/18/20 20:06 Respiratory Rate 20 12/18/20 20:06 Blood Pressure 175/79 H 12/18/20 20:06 Pulse Oximetry 96 12/18/20 20:06 GENERAL: Alert pleasant 65-year-old male and in no acute distress. HEENT: Head atraumatic,EOMI, pupils reactive, face symmetric, moist mucous membranes CARDIOVASCULAR: Regular rate and rhythm without murmurs, rubs or gallops. RESPIRATORY: Breath sounds equal bilaterally, no wheezes rales or rhonchi. ABDOMEN: Soft, nontender. Normoactive bowel sounds all 4 quadrants. No guarding or rebound. EXTREMITIES: Normal range of motion, no clubbing or edema. Neurovascularly intact No gross bony deformity fistula noted in right upper arm NEUROLOGICAL: Alert and oriented x4.Normal gait and speech. SKIN: Right foot plantar lateral side 3 cm laceration no surrounding erythema right leg has erythema on his foot up to mid bermudez non circumferential outlined by self also chronic venous stasis noted bilaterally Course Orders Ordered: ED Orders 12/18/20 20:49 XR chest 1V Stat EKG-12 Lead Stat RT Consult Eval and Treat Now 12/18/20 21:05 Complete Blood Count AUTO DIFF Stat Comprehensive Metabolic Panel Stat Lactate (Lactic Acid) Stat Lipase Stat Procalcitonin Stat 12/18/20 21:20 Blood Culture Stat Discontinued Medications Ceftriaxone Sodium 1,000 mg/ (Sodium Chloride) 100 mls @ 200 mls/hr IV NOW ONE Stop: 12/18/20 21:53 Last Infusion: 12/18/20 22:38 Dose: 0 mls/hr Documented by: Admin: 12/18/20 22:04 Dose: 200 mls/hr Documented by: NAMAN Vital Signs Vital signs: Vital Signs - 8 hr 12/18/20 20:35 12/18/20 21:00 12/18/20 21:14 Temperature 98.2 F Pulse Rate 76 75 70 Respiratory Rate 18 19 Blood Pressure 170/72 H 134/78 Pulse Oximetry 98 98 99 12/18/20 21:30 12/18/20 21:31 12/18/20 22:00 Temperature Pulse Rate 83 85 60 Respiratory Rate 32 H 26 H 30 H Blood Pressure 168/70 H 169/70 H Pulse Oximetry 98 12/18/20 22:30 12/18/20 23:12 Temperature Pulse Rate 73 61 Respiratory Rate 28 H 18 Blood Pressure 175/72 H 155/67 H Pulse Oximetry 97 96 MDM - Wound/Laceration Lab Data Attestation: I reviewed the patient's lab results. Result diagrams: 12/18/20 21:05 12/18/20 21:05 Labs: Lab Results 12/18/20 12/18/20 12/18/20 Range/Units 21:05 21:05 21:05 WBC 8.5 (4.5-11.0) X10^3/uL RBC 3.64 L (4.5-5.9) X10^6/uL Hgb 11.1 L (13.5-17.5) g/dL Hct 34.1 L (41-53) % MCV 93.5 (80-100) fL MCH 30.4 (26-34) PG MCHC 32.5 (30-36) % RDW 16.1 H (11.6-14.8) % Plt Count 319 (150-400) X10^3/uL Neut % (Auto) 72.4 (50-75) % Lymph % (Auto) 13.7 L (25-40) % [place] % (Auto) 8.6 (3-14) % Eos % (Auto) 4.1 H (2-4) % Baso % (Auto) 1.2 (0-2) % Neut # (Auto) 6200 (8568-3206) /uL Lymph # (Auto) 1200 (3792-3509) /uL [place] # (Auto) 700 (0-900) /uL Eos # (Auto) 400 (0-450) /uL Baso # (Auto) 100 (0-100) /uL Sodium 138 (137-145) mmol/L Potassium 5.3 H (3.4-5.1) mmol/L Chloride 98 (98-107) mmol/L Carbon Dioxide 26 (22-32) mmol/L BUN 41 H (9-20) mg/dL Creatinine 4.50 H (0.66-1.25) mg/dL Estimated GFR 13.1 L (>60) mL/min BUN/Creatinine Ratio 9.1 (6-22) Glucose 281 H (80-110) mg/dL Lactate 1.1 (0.7-2.1) mmol/L Calcium 9.7 (8.4-10.2) mg/dL Total Bilirubin 0.6 (0.2-1.3) mg/dL AST 21 (17-59) IU/L ALT 13 (<50) IU/L Alkaline Phosphatase 90 (38-126) U/L Total Protein 7.4 (6.3-8.2) g/dL Albumin 4.4 (3.5-5.0) g/dL Globulin 3.0 (1.7-4.1) g/dL Albumin/Globulin Ratio 1.5 (1.0-2.8) Lipase 118 (23-300) U/L Procalcitonin 0.44 (<0.5) ng/mL ECG Data Attestation: I personally reviewed and interpreted this ECG as follows: Prior ECG tracings: available for review Interpretation: Normal sinus rhythm rate 73 p.r. interval 212 QRS [address] changes or T-wave inversions similar to previous EKG MDM Narrative Medical decision making narrative: The patient has an obvious right foot laceration. It is unknown how long it has been there it is likely the source of his right leg cellulitis. However there is no gross pus coming from at laceration. He surprisingly overall looks well. He has no leukocytosis or other significant abnormal blood work. His vitals have been within normal limits. He is diabetic and high risk. He is given Rocephin in the emergency department and written for cefdinir as outpatient. Discharge Plan Departure Patient Disposition: Home Clinical Impression: Cellulitis of leg, right Instructions: Cellulitis Activity Restrictions/Additional Instructions: *You have been diagnosed with right leg cellulitis *What to do: Please monitor and try to elevate her feet or have somebody look at them for for you. Keep a close eye on the redness *Continue to take medications as directed Cefdinir 300 mg every 48 hours after dialysis *Follow up with your primary care provider in 2-3 days *Return to ER if you should have increasing redness, pain, fever, body aches [or] any new, worsening or concerning symptoms Prescriptions: New cefdinir 300 mg capsule 300 mg PO .q48 Qty: 7 RF: 0 No Action fluticasone propion-salmeterol [Advair Diskus] 250-50 mcg/dose blister with device 1 puff Inhalation BID RF: 0 amlodipine 10 mg tablet 10 mg PO DAILY RF: 0 gemfibrozil 600 mg tablet 600 mg PO DAILY RF: 0 azelastine 137 mcg (0.1 %) aerosol,spray RF: 0 albuterol sulfate [ProAir HFA] 90 mcg/actuation HFA aerosol inhaler 1 puff Inhalation PRN PRN (Reason: Shortness Of Breath) RF: 0 losartan 100 mg tablet 100 mg PO DAILY RF: 0 atenolol 50 mg tablet 50 mg PO DAILY RF: 0 loratadine 10 mg tablet 10 mg PO DAILY RF: 0 ezetimibe [Zetia] 10 mg tablet 10 mg PO DAILY RF: 0 insulin regular hum U-500 conc [Humulin R U-500 (Conc) Kwikpen] 500 unit/mL (3 mL) insulin pen RF: 0 Referrals: Vy Mcgee MD [Primary Care Provider] -
[2020-12-18] MEDS: cefTRIAXone 1,000 MG in SODIUM CHLORIDE 0.9% 100 ML 200 ML IV (22:04)
== END 2020-12-18 23:14 | disposition home or self-care (01) ==
PROVIDERS: Emergency Provider Emergency Medicine; PCP Internal Medicine; Referring Provider Hospitalist
DX: L03.115 Cellulitis of right lower limb (principal); I10 Essential (primary) hypertension; I25.2 Old myocardial infarction
CPT/HCPCS: 36415; 71045; 80053; 81003; 83605; 83690; 84145; 85025; 87040; 93005; 93010; 96365; 99285; J0696

== ENCOUNTER 2021-01-16 11:12 | Emergency (ER) | payer MEDICARE, OTHER, SELFPAY ==
[2021-01-16 11:25] VITALS: BP 164/75; PULSE 75; RESP 14; TEMP 36.4; O2SAT 99
--- NOTE | 2021-01-16 12:18 | DI.US.S_ITS ---
PROCEDURE: US PERIPH VENOUS LOW EXTREM RT INDICATIONS: EDEMA TECHNIQUE: Real-time imaging, as well as color and pulse Doppler interrogation, were performed of the lower extremity deep veins from the inguinal ligament to the popliteal fossa. COMPARISON: None. FINDINGS: The common femoral, femoral and popliteal veins are normally compressible, and free of intraluminal thrombus. Color and pulse Doppler demonstrate normal phasic intraluminal flow. There is normal augmentation response to distal compression maneuver. IMPRESSION: Negative for deep venous thrombosis of the right lower extremity. Dictated by: Parrish Shaw M.D. on 01/16/2021 at 12:27 Approved by: Parrish Shaw M.D. on 01/16/2021 at 12:28
--- NOTE | 2021-01-16 13:26 | DI.RAD.S_ITS ---
PROCEDURE: XR CHEST 1V INDICATIONS: chest pain TECHNIQUE: One view of the chest was acquired. COMPARISON: [facility], CR, XR CHEST 1V, 12/18/2020, 21:31. FINDINGS: Surgical changes and devices: None. Lungs and pleura: Ill-defined opacities seen in right perihilar region and infrahilar region concerning for developing right lower lobe infiltrate/atelectasis. Mild pulmonary vascular congestion is also seen. No pleural effusions or pneumothorax. Mediastinum: Mediastinal contours appear normal. Heart size is enlarged. Bones and chest wall: No suspicious bony lesions. Overlying soft tissues appear unremarkable. IMPRESSION: Cardiomegaly and mild congestion. Ill-defined opacity in right infrahilar region concerning for developing right lower lobe infiltrate. No pleural effusion or pneumothorax. Dictated by: Jim Olvera M.D. on 01/16/2021 at 13:57 Approved by: Jim Olvera M.D. on 01/16/2021 at 14:01
[2021-01-16 14:25] LABS: Add Manual Diff / Slide Review NO; Basophils Absolute Auto 100 /uL (0-100); Basophils Percent Auto 1.3 % (0-2); Eosinophils Absolute Auto 400 /uL (0-450); Eosinophils Percent Auto 5.4 % (2-4); Hematocrit 33.2 % (41-53); Lymphocytes Absolute Auto 900 /uL (1100-4500); Lymphocytes Percent Auto 11.6 % (25-40); Mean Corpuscular Hemoglobin 31.1 PG (26-34); Mean Corpuscular Volume 94.2 fL (80-100); Monocytes Absolute Auto 700 /uL (0-900); Monocytes Percent Auto 8.7 % (3-14); Neutrophils Absolute Auto 5800 /uL (1500-7000); Platelet Count 300 X10^3/uL (150-400); Red Blood Cell Count 3.53 X10^6/uL (4.5-5.9); Red Cell Distribution Width 16.8 % (11.6-14.8)
[2021-01-16 14:30] VITALS: PULSE 70; RESP 16; O2SAT 98
[2021-01-16 14:35] LABS: Alanine Aminotransferase 11 IU/L (<50); Albumin 4.5 g/dL (3.5-5.0); Albumin Globulin Ratio 1.5 (1.0-2.8); Alkaline Phosphatase 98 U/L (38-126); Aspartate Aminotransferase 26 IU/L (17-59); Bilirubin Total 0.7 mg/dL (0.2-1.3); Blood Urea Nitrogen 49 mg/dL (9-20); Calcium 9.5 mg/dL (8.4-10.2); Carbon Dioxide 27 mmol/L (22-32); Chloride 100 mmol/L (98-107); Creatine Kinase 104 U/L (55-170); Estimated Glomerular Filt Rate 14.6 mL/min (>60); Globulin 3.1 g/dL (1.7-4.1); Glucose 101 mg/dL (80-110); HEMOLYSIS < 15 (0-50); Lipase 107 U/L (23-300); Magnesium 2.5 mg/dL (1.6-2.3); Potassium 4.6 mmol/L (3.4-5.1); Sodium 137 mmol/L (137-145); Total Protein 7.6 g/dL (6.3-8.2)
--- NOTE | 2021-01-16 14:44 | ED.EXTPRO ---
HPI - Extremity Problem General Chief complaint: Extremity Problem,Nontraumatic Stated complaint: right leg swollen Time Seen by Provider: 01/16/21 14:28 Source: patient Mode of arrival: Wheelchair Limitations: no limitations History of Present Illness HPI Narrative: Patient is a 65-year-old male history of hemodialysis on home oxygen 3 L while resting 4 L while active, hypertension, hyperlipidemia presenting today with right-sided thigh swelling out. He says he woke up this morning and it was quite swollen. He has been going type dialysis Saturday. He was actually supposed to get an extra dialysis today they have been trying to get extra fluid off of him however he was not able to go to his extra session today because the spot was no longer available. He will definitely be going tomorrow. He has not had any increased difficulty breathing no fever or cough. He was previously seen at the end of November found to have right leg cellulitis from a cut on the bottom his foot. 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 He does so has much as he can. He is not on any anticoagulation medication. Related Data Home Medications Medication Instructions Recorded Confirmed albuterol sulfate 90 mcg/actuation 1 puff INHALATION PRN PRN 06/18/18 06/18/18 aerosol inhaler amlodipine 10 mg tablet 10 mg PO DAILY 06/18/18 06/18/18 atenolol 50 mg tablet 50 mg PO DAILY 06/18/18 06/18/18 azelastine 137 mcg (0.1 %) nasal 06/18/18 spray aerosol ezetimibe 10 mg tablet 10 mg PO DAILY 06/18/18 06/18/18 fluticasone 250 mcg-salmeterol 50 1 puff INHALATION BID 06/18/18 06/18/18 mcg/dose blistr powdr for inhalation gemfibrozil 600 mg tablet 600 mg PO DAILY 06/18/18 06/18/18 insulin regular hum U-500 conc 06/18/18 loratadine 10 mg tablet 10 mg PO DAILY 06/18/18 06/18/18 losartan 100 mg tablet 100 mg PO DAILY 06/18/18 06/18/18 Previous Rx's Medication Instructions Recorded cefdinir 300 mg capsule 300 mg PO .q48 #7 cap 12/18/20 hydrocodone 5 mg-acetaminophen 325 1 tab PO Q6H PRN #10 tab 01/16/21 mg tablet Allergies Allergy/AdvReac Type Severity Reaction Status Date / Time codeine [CODEINE] Allergy Intermediate Verified 01/16/21 11:31 morphine [MORPHINE] Allergy Unknown Verified 01/16/21 11:31 influenza virus vaccine, AdvReac Severe WAS IN Verified 01/16/21 11:31 specific COMA X3 WKS [INFLUENZA VIRUS VACC,SPECIFIC] duloxetine [DULOXETINE] AdvReac Intermediate SUICIDAL Verified 01/16/21 11:31 IDEATION levofloxacin [LEVOFLOXACIN] AdvReac Intermediate KNOCKED Verified 01/16/21 11:31 OUT; FELL ON FLOOR diazepam [DIAZEPAM] AdvReac Mild STONED Verified 01/16/21 11:31 FOR 3-5 DAYS TOBACCO Allergy Mild Uncoded 12/18/20 20:06 Review of Systems Review of Systems Narrative: GENERAL: Denies chills, fatigue, malaise, fever, sweats, travel HEENT: Denies sinus pain, ear pain, sore throat, difficulty swallowing, neck pain RESPIRATORY: Denies dyspnea, cough, wheezing, hemoptysis, sputum. CARDIOVASCULAR: Denies chest pain, palpitations, orthopnea, edema GASTROINTESTINAL: Denies nausea, vomiting, abdominal pain, diarrhea, constipation, melena. : Denies dysuria, frequency, incontinence, hematuria, urinary retention, flank pain. MUSCULOSKELETAL: Swelling right upper thigh SKIN: No rash, no erythema, no pruritus NEUROLOGIC: Denies weakness, dizziness, headache, numbness, change in speech, confusion PSYCHIATRIC: No concerning psychosocial issues. 12 point review of systems is negative except for those stated above and HPI Patient History Medical History (Updated 01/16/21 @ 15:44 by Nathalie Ruiz DO) Acute exacerbation of CHF (congestive heart failure) Calf pain Contusion, lower leg Diabetes Nausea vomiting and diarrhea NSTEMI (non-ST elevated myocardial infarction) Stage 4 chronic kidney disease Viral gastroenteritis Surgical History No pertinent past surgical history Social History Smoking Status: Never smoker Smoking Status: Never smoker alcohol intake frequency: 0-2 drinks per day Substance Use Type: does not use Exam Initial Vital Signs Initial Vital Signs: Vital Signs Temperature 97.5 F L 01/16/21 11:25 Pulse Rate 75 01/16/21 11:25 Respiratory Rate 14 01/16/21 11:25 Blood Pressure 164/75 H 01/16/21 11:25 Pulse Oximetry 99 01/16/21 11:25 GENERAL: Alert 65-year-old male appears chronically ill on ox and in no acute distress. HEENT: Head atraumatic,EOMI, pupils reactive, face symmetric, moist mucous membranes CARDIOVASCULAR: Regular rate and rhythm without murmurs, rubs or gallops. RESPIRATORY: Breath sounds equal bilaterally, no wheezes rales or rhonchi. ABDOMEN: Soft, nontender. Normoactive bowel sounds all 4 quadrants. No guarding or rebound. EXTREMITIES: Normal range of motion, no clubbing or edema. Neurovascularly intact Right thigh and knee are swollen and slightly tight. No erythema decreased range of motion of right knee due to swelling. Distal pedal pulse intact. NEUROLOGICAL: Alert and oriented x4.Normal gait and speech. SKIN: Chronic venous stasis in bilateral lower extremities. Bottom of a right foot laceration appears to be healing no erythema or gross pus Course Orders Ordered: ED Orders 01/16/21 12:18 US periph venous low extrem rt Stat 01/16/21 13:26 XR chest 1V Stat EKG-12 Lead Stat 01/16/21 14:18 Complete Blood Count AUTO DIFF Stat Comprehensive Metabolic Panel Stat Lipase Stat Magnesium Stat NT-proBNP (BNP-Adult 18+) Stat Troponin & CK Cardiac Panel Stat Vital Signs Vital signs: Vital Signs - 8 hr 01/16/21 11:25 01/16/21 14:30 Temperature 97.5 F L Pulse Rate 75 70 Respiratory Rate 14 16 Blood Pressure 164/75 H Pulse Oximetry 99 98 MDM - Extremity (Nontraumatic) Lab Data Result diagrams: 01/16/21 14:18 01/16/21 14:18 Labs: Lab Results 01/16/21 01/16/21 01/16/21 Range/Units 14:18 14:18 14:18 WBC 8.0 (4.5-11.0) X10^3/uL RBC 3.53 L (4.5-5.9) X10^6/uL Hgb 11.0 L (13.5-17.5) g/dL Hct 33.2 L (41-53) % MCV 94.2 (80-100) fL MCH 31.1 (26-34) PG MCHC 33.0 (30-36) % RDW 16.8 H (11.6-14.8) % Plt Count 300 (150-400) X10^3/uL Neut % (Auto) 73.0 (50-75) % Lymph % (Auto) 11.6 L (25-40) % Anderson % (Auto) 8.7 (3-14) % Eos % (Auto) 5.4 H (2-4) % Baso % (Auto) 1.3 (0-2) % Neut # (Auto) 5800 (5229-6999) /uL Lymph # (Auto) 900 L (6509-9325) /uL Anderson # (Auto) 700 (0-900) /uL Eos # (Auto) 400 (0-450) /uL Baso # (Auto) 100 (0-100) /uL Sodium 137 (137-145) mmol/L Potassium 4.6 (3.4-5.1) mmol/L Chloride 100 (98-107) mmol/L Carbon Dioxide 27 (22-32) mmol/L BUN 49 H (9-20) mg/dL Creatinine 4.10 H (0.66-1.25) mg/dL Estimated GFR 14.6 L (>60) mL/min BUN/Creatinine Ratio 12.0 (6-22) Glucose 101 (80-110) mg/dL Calcium 9.5 (8.4-10.2) mg/dL Magnesium 2.5 H (1.6-2.3) mg/dL Total Bilirubin 0.7 (0.2-1.3) mg/dL AST 26 (17-59) IU/L ALT 11 (<50) IU/L Alkaline Phosphatase 98 (38-126) U/L Total Creatine Kinase 104 (55-170) U/L CK-MB (CK-2) 3.04 H (<2.37) ng/mL CK-MB (CK-2) Rel Index 2.9 (1.5-5.0) % Troponin I 0.055 H (0.01-0.034) ng/mL NT-Pro-B Natriuret Pep 60747 H Cancelled (<125) pg/mL Total Protein 7.6 (6.3-8.2) g/dL Albumin 4.5 (3.5-5.0) g/dL Globulin 3.1 (1.7-4.1) g/dL Albumin/Globulin Ratio 1.5 (1.0-2.8) Lipase 107 (23-300) U/L Imaging Data Chest x-ray: Radiologist's Impression: PROCEDURE: XR CHEST 1V INDICATIONS: chest pain TECHNIQUE: One view of the chest was acquired. COMPARISON: [facility], , XR CHEST 1V, 12/18/2020, 21:31. FINDINGS: Surgical changes and devices: None. Lungs and pleura: Ill-defined opacities seen in right perihilar region and infrahilar region concerning for developing right lower lobe infiltrate/atelectasis. Mild pulmonary vascular congestion is also seen. No pleural effusions or pneumothorax. Mediastinum: Mediastinal contours appear normal. Heart size is enlarged. Bones and chest wall: No suspicious bony lesions. Overlying soft tissues appear unremarkable. IMPRESSION: Cardiomegaly and mild congestion. Ill-defined opacity in right infrahilar region concerning for developing right lower lobe infiltrate. No pleural effusion or pneumothorax. Dictated by: Jim Olvera M.D. on 01/16/2021 at 13:57 Approved by: Jim Olvera M.D. on 01/16/2021 at 14:01 US - DVT: Radiologist's Impression: PROCEDURE: US PERIPH VENOUS LOW EXTREM RT INDICATIONS: EDEMA TECHNIQUE: Real-time imaging, as well as color and pulse Doppler interrogation, were performed of the lower extremity deep veins from the inguinal ligament to the popliteal fossa. COMPARISON: None. FINDINGS: The common femoral, femoral and popliteal veins are normally compressible, and free of intraluminal thrombus. Color and pulse Doppler demonstrate normal phasic intraluminal flow. There is normal augmentation response to distal compression maneuver. IMPRESSION: Negative for deep venous thrombosis of the right lower extremity. Dictated by: Parrish Shaw M.D. on 01/16/2021 at 12:27 ECG Data Interpretation: Normal sinus rhythm rate 72 DC interval 232 QRS 116 is QTC [address] changes no T-wave inversion MDM Narrative Medical decision making narrative: Patient does have some right thigh swelling it is more swollen than the left. He is not on any anticoagulation. DVT study is negative. Chest x-ray does show some cardiomegaly with congestion BNP elevated. He states that he has already fluid overloaded and they are trying to get more off dialysis. I think that this may be a result of fluid overload. He missed his extra dialysis session today he is scheduled for tomorrow. He is not having any worsening is difficulty breathing. He is on oxygen, does not any extra. At this time I recommend waiting to see what happens after dialysis. If it is getting more swollen or red and return to the ED. This time he previously did have infection on the leg he was treated with antibiotics apparently the antibiotics he was put on from the ED get changed to vancomycin during his dialysis. Foot and leg no longer appear to have acute infection Discharge Plan Departure Patient Disposition: Home Clinical Impression: Pain and swelling of right lower extremity Instructions: DI for Peripheral Edema-Unilateral Activity Restrictions/Additional Instructions: *You have been diagnosed with right lower extremity swelling *What to do: At this time no evidence of blood clot in her right leg. There does not appear to be an infection. I believe some of her swelling is due to fluid overload. Please talk with Nephrology in regards to getting more fluid off. It sounds like this is already the plan. *Continue to take medications as directed *Follow up with your primary care provider in 2-3 days *Return to ER if you should have increased swelling, redness, fever, pain, inability to walk or any new, worsening or concerning symptoms Prescriptions: New hydrocodone-acetaminophen 5-325 mg tablet 1 tab PO Q6H PRN (Reason: pain) Qty: 10 RF: 0 No Action fluticasone propion-salmeterol [Advair Diskus] 250-50 mcg/dose blister with device 1 puff Inhalation BID RF: 0 amlodipine 10 mg tablet 10 mg PO DAILY RF: 0 gemfibrozil 600 mg tablet 600 mg PO DAILY RF: 0 azelastine 137 mcg (0.1 %) aerosol,spray RF: 0 albuterol sulfate [ProAir HFA] 90 mcg/actuation HFA aerosol inhaler 1 puff Inhalation PRN PRN (Reason: Shortness Of Breath) RF: 0 losartan 100 mg tablet 100 mg PO DAILY RF: 0 atenolol 50 mg tablet 50 mg PO DAILY RF: 0 loratadine 10 mg tablet 10 mg PO DAILY RF: 0 ezetimibe [Zetia] 10 mg tablet 10 mg PO DAILY RF: 0 insulin regular hum U-500 conc [Humulin R U-500 (Conc) Kwikpen] 500 unit/mL (3 mL) insulin pen RF: 0 cefdinir 300 mg capsule 300 mg PO .q48 Qty: 7 RF: 0 Referrals: Vy Mcgee MD [Primary Care Provider] - Juan Harper MD [Non-Staff] -
[2021-01-16 14:47] LABS: NT-proBNP (BNP-Adult 18+) 16100 pg/mL (<125); Troponin I 0.055 ng/mL (0.01-0.034)
[2021-01-16 14:50] LABS: CKMB % Relative Index 2.9 % (1.5-5.0); Creatine Kinase MB 3.04 ng/mL (<2.37)
[2021-01-16 15:00] VITALS: PULSE 72; O2SAT 97
[2021-01-16 15:30] VITALS: PULSE 70; RESP 24; O2SAT 98
[2021-01-16 16:05] VITALS: BP 180/80; PULSE 69; RESP 16; O2SAT 98
== END 2021-01-16 16:07 | disposition home or self-care (01) ==
PROVIDERS: Emergency Provider Emergency Medicine; PCP Internal Medicine
DX: R60.0 Localized edema (principal); M79.604 Pain in right leg; R07.9 Chest pain, unspecified
CPT/HCPCS: 36415; 71045; 80053; 82550; 82553; 83690; 83735; 83880; 84484; 85025; 93005; 93010; 93971; 99284

== ENCOUNTER 2021-05-20 16:32 | Emergency (ER) | payer MEDICARE, OTHER, SELFPAY ==
[2021-05-20 16:53] VITALS: BP 220/98; PULSE 75; RESP 26; TEMP 36.9; O2SAT 95; BMI 31.7
--- NOTE | 2021-05-20 17:34 | DI.RAD.S_ITS ---
PROCEDURE: XR ELBOW LT MIN 3V INDICATIONS: Fall. Left elbow injury. TECHNIQUE: 3 views of the elbow were acquired. COMPARISON: None. FINDINGS: Bones: No acute fractures or dislocations. No suspicious bony lesions. Soft tissues: No elbow joint effusion. No suspicious soft tissue calcifications. Soft tissue edema is seen overlying the olecranon. IMPRESSION: 1. No acute osseous abnormality. If clinical suspicion and/or symptoms persist, additional imaging with repeat plain films, or advanced imaging (e.g. CT, MRI) may be helpful for further assessment. 2. Soft tissue swelling over the olecranon may represent olecranon on bursal effusion. Dictated by: Jese Benitez M.D. on 05/20/2021 at 17:57 Approved by: Jese Benitez M.D. on 05/20/2021 at 17:59
--- NOTE | 2021-05-20 17:35 | ED_ITS ---
HPI - Fall General Chief Complaint: Fall Stated Complaint: left elbow, left shoulder and head injury s/p fall Time Seen by Provider: 05/20/21 17:28 Source: patient Mode of arrival: Ambulatory History of Present Illness HPI Narrative: This gentleman has a long history of diabetes, hypertension and renal failure with dialysis Saturday, and Saturday. He is oxygen dependent based with COPD and diastolic heart failure. He tripped over his oxygen tubing at home. He landed on his left elbow. There is swelling and discomfort to left elbow, yet seemingly normal range of motion. He also has significant discomfort in the left anterior shoulder with decreased motion left shoulder. There is no obvious deformity to the left shoulder. He has no chest pain, or back pain. He has no dyspnea. He is right-hand dominant. It is noted he is very hypertensive upon arrival, he is compliant with medications. He is not anticoagulated. Related Data Home Medications Medication Instructions Recorded Confirmed albuterol sulfate 90 mcg/actuation 1 puff INHALATION PRN PRN 06/18/18 06/18/18 aerosol inhaler amlodipine 10 mg tablet 10 mg PO DAILY 06/18/18 06/18/18 atenolol 50 mg tablet 50 mg PO DAILY 06/18/18 06/18/18 azelastine 137 mcg (0.1 %) nasal 06/18/18 spray aerosol ezetimibe 10 mg tablet 10 mg PO DAILY 06/18/18 06/18/18 fluticasone 250 mcg-salmeterol 50 1 puff INHALATION BID 06/18/18 06/18/18 mcg/dose blistr powdr for inhalation gemfibrozil 600 mg tablet 600 mg PO DAILY 06/18/18 06/18/18 insulin regular hum U-500 conc 06/18/18 loratadine 10 mg tablet 10 mg PO DAILY 06/18/18 06/18/18 losartan 100 mg tablet 100 mg PO DAILY 06/18/18 06/18/18 Previous Rx's Medication Instructions Recorded cefdinir 300 mg capsule 300 mg PO .q48 #7 cap 12/18/20 hydrocodone 5 mg-acetaminophen 325 1 tab PO Q6H PRN #10 tab 01/16/21 mg tablet hydrocodone 5 mg-acetaminophen 325 1 tab PO Q4H PRN #14 tab 05/20/21 mg tablet Allergies Allergy/AdvReac Type Severity Reaction Status Date / Time codeine [CODEINE] Allergy Intermediate Verified 05/20/21 16:53 morphine [MORPHINE] Allergy Unknown Verified 05/20/21 16:53 influenza virus vaccine, AdvReac Severe WAS IN Verified 05/20/21 16:53 specific COMA X3 WKS [INFLUENZA VIRUS VACC,SPECIFIC] duloxetine [DULOXETINE] AdvReac Intermediate SUICIDAL Verified 05/20/21 16:53 IDEATION levofloxacin [LEVOFLOXACIN] AdvReac Intermediate KNOCKED Verified 05/20/21 16:53 OUT; FELL ON FLOOR diazepam [DIAZEPAM] AdvReac Mild STONED Verified 05/20/21 16:53 FOR 3-5 DAYS TOBACCO Allergy Mild Uncoded 05/20/21 16:53 Review of Systems Constitutional Constitutional: Denies body ache(s), Denies chills, Denies fatigue and Denies fever(s) ENT Ears, Nose, Mouth, and Throat: Denies vertigo and Denies dizziness Comments: No ENT complaints. Cardiovascular Cardiovascular: Denies chest pain, Denies syncope, Denies rapid heart rate and Denies dyspnea Respiratory Respiratory: Denies cough and Denies dyspnea Gastrointestinal Gastrointestinal: Denies abdominal pain Musculoskeletal Musculoskeletal: Denies back pain Comments: Left elbow pain is noted HPI. Left shoulder pain is noted HPI. Integumentary/Breasts Skin/Breast: Denies new lesions and Denies rash Neurologic Neurologic: Denies vertigo, Denies dizziness and Denies syncope Endocrine Endocrine: Denies fatigue Patient History Medical History Acute exacerbation of CHF (congestive heart failure) Calf pain Contusion, lower leg Diabetes Nausea vomiting and diarrhea NSTEMI (non-ST elevated myocardial infarction) Stage 4 chronic kidney disease Viral gastroenteritis Surgical History No pertinent past surgical history Social History Smoking Status: Never smoker Smoking Status: Never smoker alcohol intake frequency: 0-2 drinks per day Substance Use Type: does not use Exam Initial Vital Signs Initial Vital Signs: Vital Signs Temperature 98.4 F 05/20/21 16:53 Pulse Rate 75 05/20/21 16:53 Respiratory Rate 26 H 05/20/21 16:53 Blood Pressure 220/98 H 05/20/21 16:53 Pulse Oximetry 95 05/20/21 16:53 Const General: cooperative and comfortable HENMT Head: normocephalic and atraumatic Neck Neck: full ROM and No tender Chest Chest: normal inspection of the chest Resp Auscultation: clear to auscultation bilaterally Cardio Rate: regular rate Rhythm: regular rhythm Heart Sounds: S1 normal and S2 normal GI Inspection: normal to inspection and non-distended Back/Spine/Pelvis Back: No back tenderness Skin General: no rashes or lesions noted Neuro General: patient alert, patient awake, patient oriented x3 and no focal motor deficits Extrem Other: Left shoulder shows tenderness anterior left shoulder, medial to the joint. No palpable defects at the below joint. Decreased internal and external rotation. Decreased abduction. No laxity to the left shoulder. Left elbow show significant swelling at the olecranon bursa. There is no palpable bony deformity. Extension, flexion, pronation and supination are intact. Left forearm is nontender. Left wrist and hand are nontender. The left radial pulse is normal. Procedures Orthopedic Splinting/Casting Injury #1: Side: left Upper Extremity Injury Location: elbow Upper Extremity Immobilizer: sling/shoulder immobilizer Post splinting neuro exam: intact Post splinting vascular exam: intact Placed by: Nursing Course Course Course Narrative: The patient has traumatic worse itis to left elbow. Exam would also suggest a rotator cuff injury. The elbow was Samuel wrapped. A left arm sling was placed. Be discharged on [place]. He has already seen a orthopedic surgeon, Dr. Angela. He should follow-up with Dr. Angela regarding these issues. Orders Ordered: ED Orders 05/20/21 17:34 XR elbow LT min 3V Stat 05/20/21 18:20 XR shoulder LT min 2V Stat Discontinued Medications Hydrocodone Bitart/Acetaminophen (Hydrocodone/Acet 5/325 Prepack) 1 bottle MISC SEEINSTR ONE Stop: 05/20/21 18:59 Last Admin: 05/20/21 19:03 Dose: 1 bottle Documented by: Vital Signs Vital signs: Vital Signs - 8 hr 05/20/21 16:53 Temperature 98.4 F Pulse Rate 75 Respiratory Rate 26 H Blood Pressure 220/98 H Pulse Oximetry 95 MDM - Fall Imaging Data Left elbow XR:: Radiologist's Impression: Launch?Image [address] [address] XRay Report Signed Patient: Eitan Wild MR#: [id number] : 1955 Acct:[id number] Age/Sex: 65 / M Date of Service: 05/20/21 Loc: ED Accession Number: [id number] ?? Procedure: XR elbow LT min 3V Ordering Provider: Wei Paul MD PROCEDURE:? XR ELBOW LT MIN 3V ? INDICATIONS:? Fall.? Left elbow injury. ? TECHNIQUE:? 3 views of the elbow were acquired.? ? COMPARISON:? None. ? FINDINGS:? ? Bones:? No acute fractures or dislocations.? No suspicious bony lesions.? ? Soft tissues:? No elbow joint effusion.? No suspicious soft tissue calcifications.? Soft tissue edema is seen overlying the olecranon. ? ? IMPRESSION:? 1. No acute osseous abnormality.? If clinical suspicion and/or symptoms persist, additional imaging with repeat plain films, or advanced imaging (e.g. CT, MRI) may be helpful for further assessment. ? 2. Soft tissue swelling over the olecranon may represent olecranon on bursal effusion.? Dictated by: Jese Benitez M.D. on 05/20/2021 at 17:57 ? ? Approved by: Jese Benitez M.D. on 05/20/2021 at 17:59?? Left shoulder x-ray:: Radiologist's Impression: [address] [address] XRay Report Signed Patient: Eitan Wild MR#: [id number] : 1955 Acct:[id number] Age/Sex: 65 / M Date of Service: 05/20/21 Loc: ED Accession Number: [id number] ?? Procedure: XR shoulder LT min 2V Ordering Provider: Wei Paul MD PROCEDURE:? XR SHOULDER LT MIN 2V ? INDICATIONS:? Left rotator cuff injury ? TECHNIQUE:? 3 views of the shoulder were acquired.? ? COMPARISON:? None. ? FINDINGS:? ? Bones:? No acute fractures or dislocations.? No suspicious bony lesions.? Visualized ribs appear intact.? Moderate acromioclavicular osteoarthrosis. ? Soft tissues:? No suspicious soft tissue calcifications.? ? IMPRESSION:? No acute osseous abnormality.? If clinical suspicion and/or symptoms persist, additional imaging with repeat plain films, or advanced imaging (e.g. CT, MRI) may be helpful for further assessment. ? ? Dictated by: Jese Benitez M.D. on 05/20/2021 at 18:38 ? ? Approved by: Jese Benitez M.D. on 05/20/2021 at 18:39?? Discharge Plan Departure Patient Disposition: Home Clinical Impression: Olecranon bursitis, left elbow, Injury of left rotator cuff Instructions: DI for Rotator Cuff Injury, DI for Elbow Bursitis Activity Restrictions/Additional Instructions: Use the Samuel wrap to the elbow for the next 2-3 days. Use the left arm sling as needed. The x-rays of the elbow and shoulder normal. You have probably bled into the left elbow olecranon bursa. This could be potentially drained in the next few days, not tonight. The exam also indicates potential injury to the left rotator cuff. Follow-up with Orthopedics, Dr. Angela, regarding these issues. Return here as needed. Prescriptions: New hydrocodone-acetaminophen 5-325 mg tablet 1 tab PO Q4H PRN (Reason: pain) Qty: 14 0RF No Action fluticasone propion-salmeterol [Advair Diskus] 250-50 mcg/dose blister with device 1 puff Inhalation BID 0RF amlodipine 10 mg tablet 10 mg PO DAILY 0RF gemfibrozil 600 mg tablet 600 mg PO DAILY 0RF azelastine 137 mcg (0.1 %) aerosol,spray 0RF albuterol sulfate [ProAir HFA] 90 mcg/actuation HFA aerosol inhaler 1 puff Inhalation PRN PRN (Reason: Shortness Of Breath) 0RF losartan 100 mg tablet 100 mg PO DAILY 0RF atenolol 50 mg tablet 50 mg PO DAILY 0RF loratadine 10 mg tablet 10 mg PO DAILY 0RF ezetimibe [Zetia] 10 mg tablet 10 mg PO DAILY 0RF insulin regular hum U-500 conc [Humulin R U-500 (Conc) Kwikpen] 500 unit/mL (3 mL) insulin pen 0RF cefdinir 300 mg capsule 300 mg PO .q48 Qty: 7 0RF hydrocodone-acetaminophen 5-325 mg tablet 1 tab PO Q6H PRN (Reason: pain) Qty: 10 0RF Referrals: Vy Mcgee MD [Primary Care Provider] -
--- NOTE | 2021-05-20 18:20 | DI.RAD.S_ITS ---
PROCEDURE: XR SHOULDER LT MIN 2V INDICATIONS: Left rotator cuff injury TECHNIQUE: 3 views of the shoulder were acquired. COMPARISON: None. FINDINGS: Bones: No acute fractures or dislocations. No suspicious bony lesions. Visualized ribs appear intact. Moderate acromioclavicular osteoarthrosis. Soft tissues: No suspicious soft tissue calcifications. IMPRESSION: No acute osseous abnormality. If clinical suspicion and/or symptoms persist, additional imaging with repeat plain films, or advanced imaging (e.g. CT, MRI) may be helpful for further assessment. Dictated by: Jese Benitez M.D. on 05/20/2021 at 18:38 Approved by: Jese Benitez M.D. on 05/20/2021 at 18:39
[2021-05-20] MEDS: HYDROCODONE/ACET 5/325 PREPACK 1 BOTTLE MISC (19:03)
== END 2021-05-20 19:07 | disposition home or self-care (01) ==
PROVIDERS: Emergency Provider Emergency Medicine; PCP Internal Medicine
DX: S46.002A Unspecified injury of muscle(s) and tendon(s) of the rotator cuff of left shoulder, initial encounter (principal); M71.522 Other bursitis, not elsewhere classified, left elbow; M25.522 Pain in left elbow; M25.512 Pain in left shoulder; Z99.81 Dependence on supplemental oxygen; W18.30XA Fall on same level, unspecified, initial encounter
CPT/HCPCS: 73030; 73080; 99283

== ENCOUNTER 2021-11-20 15:43 | Emergency (ER) | payer MEDICARE, OTHER, SELFPAY ==
[2021-11-20 15:47] VITALS: BP 133/60; PULSE 57; RESP 18; TEMP 36.6; O2SAT 98; BMI 33.5
--- NOTE | 2021-11-20 16:07 | DI.RAD.S_ITS ---
PROCEDURE: XR CLAVICLE RT INDICATIONS: fall TECHNIQUE: 2 views of the clavicle were acquired. COMPARISON: None. FINDINGS: Bones: No fractures or dislocations. No suspicious bony lesions. Moderate acromioclavicular joint and mild glenohumeral joint osteoarthritis. Soft tissues: No suspicious soft tissue calcifications. Subclavian endovascular stent. IMPRESSION: No fracture. No acute osseous lesion. If symptoms and/or clinical suspicion for pathology persists, further assessment with repeat radiographs (7-10 days) or advanced imaging (e.g. CT, MRI or bone scan) should be considered. Dictated by: Savannah Espinal MD, PhD on 11/20/2021 at 16:46 Approved by: Savannah Espinal MD, PhD on 11/20/2021 at 16:49
--- NOTE | 2021-11-20 16:07 | DI.CT.S_ITS ---
PROCEDURE: CT HEAD/BRAIN WO CON INDICATIONS: fall TECHNIQUE: Noncontrast 4.5 mm thick angled axial sections acquired from the foramen magnum to the vertex, with coronal and sagittal reformats. For radiation dose reduction, the following was used: automated exposure control, adjustment of mA and/or kV according to patient size. COMPARISON: [facility], CT, HEAD WITHOUT CONTRAST, 07/28/2013, 19:02. FINDINGS: Image quality: Excellent. CSF spaces: Basal cisterns are patent. No extra-axial fluid collections. Ventricles are normal in size and shape. Brain: No midline shift. No intracranial masses or hemorrhage. Peterson-white matter interface is normal. Moderate cerebral and cerebellar volume loss with multifocal white matter chronic ischemic change noted. Moderate calcified atherosclerotic plaque noted involving the cavernous portions of both internal carotid arteries. Skull and face: Calvarium and visualized facial bones are intact, without suspicious lesions. Right occipital scalp hematoma. Diffuse calcific small vessel atherosclerosis noted. Sinuses: Visualized sinuses and mastoids are clear. IMPRESSION: Right occipital scalp hematoma without skull fracture, intracranial hemorrhage or mass effect Approved by: Josiah Francois M.D. on 11/20/2021 at 15:47
--- NOTE | 2021-11-20 16:07 | DI.CT.S_ITS ---
PROCEDURE: CT CERVICAL SPINE WO CON INDICATIONS: fall TECHNIQUE: Noncontrast 3 mm thick sections acquired from the skull base to the T4 level. Sagittal and coronal reformats were then constructed. For radiation dose reduction, the following was used: automated exposure control, adjustment of mA and/or kV according to patient size. COMPARISON: None. FINDINGS: Image quality: Limited by motion artifact Bones: No fractures or dislocations. Visualized superior ribs are intact. Disc space narrowing and moderate central stenosis noted at C5-6 Soft tissues: Prevertebral soft tissues are normal in thickness. No paravertebral hematomas. No apical pneumothoraces. Diffuse atherosclerotic vascular calcification. Right subclavian vascular stents noted. IMPRESSION: No evidence of fracture or traumatic malalignment. Multilevel degenerative disc disease and arthropathy results in moderate central stenosis at C5-6 Approved by: Josiah Francois M.D. on 11/20/2021 at 15:59
--- NOTE | 2021-11-20 17:26 | PC.NURSE ---
Patient reporting that his blood sugar feels low. Glucose check for 86, gave patient apple juice.
--- NOTE | 2021-11-20 18:12 | ED_ITS ---
HPI - Fall <Lazaro Fernandez PA-C - Last Filed: 11/20/21 20:07> General Chief Complaint: Fall Stated Complaint: FALL HIT BACK OF HEAD RIGHT ARM INJURY Time Seen by Provider: 11/20/21 17:28 Source: patient Mode of arrival: Wheelchair History of Present Illness HPI Narrative: 66-year-old male with past medical history diabetes, on dialysis 3 times a week, stage 4 chronic kidney disease, CHF presents to the ED status post a mechanical fall sustained just prior to arrival. Patient states that he tripped and fell on his clothes when he was getting dressed. Hit the right side of his head, loss consciousness. Patient states that he regained consciousness about a 1/2 hour later, was alone at home, called his , who called EMS. Patient states he was able to stand up and walk after the injury. Patient complains of pain at the site of the arm injury on the right side of the head, pain around the right clavicle. Patient denies neck pain, fever, chills, chest pain, shortness of breath, nausea, vomiting, vision changes, lightheadedness, dizziness. Patient denies feeling unwell leading up to the fall. Patient also states that he has had frequent falls in the last month, has been evaluated at a different outside ED for all his prior falls. Related Data Home Medications Medication Instructions Recorded Confirmed albuterol sulfate 90 mcg/actuation 1 puff INHALATION PRN PRN 06/18/18 06/18/18 aerosol inhaler amlodipine 10 mg tablet 10 mg PO DAILY 06/18/18 06/18/18 atenolol 50 mg tablet 50 mg PO DAILY 06/18/18 06/18/18 azelastine 137 mcg (0.1 %) nasal 06/18/18 spray aerosol ezetimibe 10 mg tablet 10 mg PO DAILY 06/18/18 06/18/18 fluticasone 250 mcg-salmeterol 50 1 puff INHALATION BID 06/18/18 06/18/18 mcg/dose blistr powdr for inhalation gemfibrozil 600 mg tablet 600 mg PO DAILY 06/18/18 06/18/18 insulin regular hum U-500 conc 06/18/18 loratadine 10 mg tablet 10 mg PO DAILY 06/18/18 06/18/18 losartan 100 mg tablet 100 mg PO DAILY 06/18/18 06/18/18 Previous Rx's Medication Instructions Recorded cefdinir 300 mg capsule 300 mg PO .q48 #7 cap 12/18/20 hydrocodone 5 mg-acetaminophen 325 1 tab PO Q6H PRN #10 tab 01/16/21 mg tablet hydrocodone 5 mg-acetaminophen 325 1 tab PO Q4H PRN #14 tab 05/20/21 mg tablet Allergies Allergy/AdvReac Type Severity Reaction Status Date / Time Influenza Virus Vaccines Allergy Unconscious Verified 11/20/21 16:00 levofloxacin Allergy Unconscious Verified 11/20/21 15:57 codeine AdvReac Agitated Verified 11/20/21 16:00 diazepam AdvReac Drowsy Verified 11/20/21 16:00 morphine AdvReac Vomiting Verified 11/20/21 16:00 [id number] Reductase AdvReac Verified 11/20/21 15:58 Inhibitor Review of Systems <Lazaro Fernandez PA-C - Last Filed: 11/20/21 20:07> Review of Systems ROS Unobtainable: All systems reviewed & are unremarkable except as noted in HPI and below Constitutional Constitutional: Denies chills, Denies fatigue, Denies fever(s), Denies frequent falls, Reports headache(s), Denies lethargy and Denies weakness Eyes Eyes: Denies change in vision, Denies eye discharge, Denies irritation and Denies loss of vision ENT Ears, Nose, Mouth, and Throat: Denies change in voice, Denies dizziness, Reports headache(s), Denies neck pain, Denies sore throat and Denies throat swelling Cardiovascular Cardiovascular: Denies chest pain, Denies irregular heart rhythm, Denies lightheadedness, Denies palpitations, Denies dyspnea, Denies dyspnea on exertion and Denies orthopnea Respiratory Respiratory: Denies cough, Denies dyspnea, Denies dyspnea on exertion and Denies wheezing Gastrointestinal Gastrointestinal: Denies abdominal pain, Denies change in bowel habits, Denies diarrhea, Denies nausea and Denies vomiting Genitourinary Genitourinary: Denies hematuria, Denies flank pain, Denies urinary incontinence and Denies urinary urgency Musculoskeletal Musculoskeletal: Denies back pain, Denies muscle weakness, Denies neck pain, Denies numbness and Denies tingling Comments: Right clavicle pain Integumentary/Breasts Skin/Breast: Denies pruritus, Denies erythema, Denies rash and Denies wounds Comments: Abrasion to right side of the Neurologic Neurologic: Denies behavioral changes, Denies confusion, Denies dizziness, Denies frequent falls, Reports headache(s), Denies loss of vision, Denies numbness, Denies tingling and Denies weakness Psychiatric Psychiatric: Denies anxiety, Denies behavioral changes, Denies confusion, Denies depression, Denies homicidal ideation and Denies suicidal ideation Endocrine Endocrine: Denies fatigue, Denies flushing and Denies palpitations Hematologic/Lymphatic Hematologic/Lymphatic: Denies easy bruising Allergic/Immunologic Allergic/Immunologic: Denies urticaria, Denies throat swelling and Denies wheezing Patient History <Lazaro Fernandez PA-C - Last Filed: 11/20/21 20:07> Medical History Acute exacerbation of CHF (congestive heart failure) Calf pain Contusion, lower leg Diabetes Nausea vomiting and diarrhea NSTEMI (non-ST elevated myocardial infarction) Stage 4 chronic kidney disease Viral gastroenteritis Surgical History No pertinent past surgical history Social History Smoking Status: Never smoker Smoking Status: Never smoker alcohol intake frequency: 0-2 drinks per day Substance Use Type: does not use Exam <Lazaro Fernandez PA-C - Last Filed: 11/20/21 20:07> Initial Vital Signs Initial Vital Signs: Vital Signs Temperature 97.8 F 11/20/21 15:47 Pulse Rate 57 L 11/20/21 15:47 Respiratory Rate 18 11/20/21 15:47 Blood Pressure 133/60 11/20/21 15:47 Pulse Oximetry 98 11/20/21 15:47 Const General: cooperative, healthy appearing and comfortable HENMT Other HENMT:: Abrasion noted to right side of the head behind the ear. Not actively bleeding. No skull depressions. Palpable hematoma. No raccoon eyes, no heller sign. Eyes General: Yes appearance normal, both eyes and all related structures Chest Chest: normal inspection of the chest Resp Effort & Inspection: normal respiratory effort Auscultation: clear to auscultation bilaterally Cardio Rate: regular rate Rhythm: regular rhythm Back/Spine/Pelvis Other: No midline tenderness to palpation Skin Other: Abrasions noted to right forearm. Not bleeding. No bony tenderness to palpation. Neuro General: patient alert, patient awake and patient oriented x3 Psych Appearance: grossly normal Mental Status: mental status grossly normal <Elliott Tran DO - Last Filed: 11/21/21 05:47> Initial Vital Signs Initial Vital Signs: Vital Signs Temperature 97.8 F 11/20/21 15:47 Pulse Rate 57 L 11/20/21 15:47 Respiratory Rate 18 11/20/21 15:47 Blood Pressure 133/60 11/20/21 15:47 Pulse Oximetry 98 11/20/21 15:47 Course <Lazaro Fernandez PA-C - Last Filed: 11/20/21 20:07> Orders Ordered: Discontinued Medications Acetaminophen (Acetaminophen 325 Mg Tablet) 975 mg PO NOW ONE Stop: 11/20/21 18:14 Last Admin: 11/20/21 18:19 Dose: 975 mg Documented by: RHINA Vital Signs Vital signs: Vital Signs - 8 hr 11/20/21 15:47 11/20/21 19:39 Temperature 97.8 F Pulse Rate 57 L 53 L Respiratory Rate 18 20 Blood Pressure 133/60 154/72 H Pulse Oximetry 98 93 <Elliott Tran DO - Last Filed: 11/21/21 05:47> Orders Ordered: Discontinued Medications Acetaminophen (Acetaminophen 325 Mg Tablet) 975 mg PO NOW ONE Stop: 11/20/21 18:14 Last Admin: 11/20/21 18:19 Dose: 975 mg Documented by: RHINA Vital Signs Vital signs: Vital Signs - 8 hr 11/20/21 15:47 11/20/21 19:39 Temperature 97.8 F Pulse Rate 57 L 53 L Respiratory Rate 18 20 Blood Pressure 133/60 154/72 H Pulse Oximetry 98 93 MDM - Fall <Lazaro Fernandez PA-C - Last Filed: 11/20/21 20:07> Lab Data Labs: Point of Care Testing Glucose POC [address] scan - head: Radiologist's Impression: PROCEDURE:? CT HEAD/BRAIN WO CON ? INDICATIONS:? fall ? TECHNIQUE:? Noncontrast 4.5 mm thick angled axial sections acquired from the foramen magnum to the vertex, with coronal and sagittal reformats.? For radiation dose reduction, the following was used:? automated exposure control, adjustment of mA and/or kV according to patient size.? ? COMPARISON:? [facility], CT, HEAD WITHOUT CONTRAST, 07/28/2013, 19:02. ? FINDINGS:? Image quality:? Excellent.? ? CSF spaces:? Basal cisterns are patent.? No extra-axial fluid collections.? Ventricles are normal in size and shape.? ? Brain:? No midline shift.? No intracranial masses or hemorrhage.? Peterson-white matter interface is normal.? Moderate cerebral and cerebellar volume loss with multifocal white matter chronic ischemic change noted. Moderate calcified atherosclerotic plaque noted involving the cavernous portions of both internal carotid arteries.? ? Skull and face:? Calvarium and visualized facial bones are intact, without suspicious lesions.? Right occipital scalp hematoma.? Diffuse calcific small vessel atherosclerosis noted. ? Sinuses:? Visualized sinuses and mastoids are clear.? ? IMPRESSION:? ? Right occipital scalp hematoma without skull fracture, intracranial hemorrhage or mass effect ? ? ? Approved by: Josiah Francois M.D. on 11/20/2021 at 15:47? CT - cervical spine: Radiologist's Impression: PROCEDURE:? CT CERVICAL SPINE WO CON ? INDICATIONS:? fall ? TECHNIQUE:? Noncontrast 3 mm thick sections acquired from the skull base to the T4 level.? Sagittal and coronal reformats were then constructed.? For radiation dose reduction, the following was used:? automated exposure control, adjustment of mA and/or kV according to patient size.? ? COMPARISON:? None. ? FINDINGS:? Image quality:? Limited by motion artifact ? Bones:? No fractures or dislocations.? Visualized superior ribs are intact.? Disc space narrowing and moderate central stenosis noted at C5-6 ? Soft tissues:? Prevertebral soft tissues are normal in thickness.? No paravertebral hematomas.? No apical pneumothoraces.? Diffuse atherosclerotic vascular calcification.? Right subclavian vascular stents noted. ? ? IMPRESSION:? ? No evidence of fracture or traumatic malalignment. ? Multilevel degenerative disc disease and arthropathy results in moderate central stenosis at C5-6 ? Approved by: Josiah Francois M.D. on 11/20/2021 at 15:59? Clavicle x-ray: Radiologist's Impression: PROCEDURE:? XR CLAVICLE RT ? INDICATIONS:? fall ? TECHNIQUE:? 2 views of the clavicle were acquired.? ? COMPARISON:? None. ? FINDINGS:? ? Bones:? No fractures or dislocations.? No suspicious bony lesions.? Moderate acromioclavicular joint and mild glenohumeral joint osteoarthritis.? ? Soft tissues:? No suspicious soft tissue calcifications.? Subclavian endovascul ar stent.? ? ? IMPRESSION:? No fracture. No acute osseous lesion. If symptoms and/or clinical suspicion for pathology persists, further assessment with repeat radiographs (7-10 days) or advanced imaging (e.g. CT, MRI or bone scan) should be considered. ? ? Dictated by: Savannah Espinal MD, PhD on 11/20/2021 at 16:46 ? ? Approved by: Savannah Espinal MD, PhD on 11/20/2021 at 16:49 ? MDM Narrative Medical decision making narrative: 66-year-old male with past medical history diabetes, on dialysis 3 times a week, stage 4 chronic kidney disease, CHF presents to the ED status post a mechanical fall sustained just prior to arrival. Concern for intracranial bleed versus skull fracture versus abrasion versus clavicle fracture versus lumbar fractures. Will obtain CT head, CT C-spine, clavicle x-ray. Head abrasion was cleaned, not actively bleeding, no repair indicated at this time. Patient's tetanus is up-to-date. CT head, CT C-spine, clavicle x-ray without acute findings. Patient's pain was treated with Tylenol. ED return precautions discussed with patient. Fall precautions discussed with patient. Patient verbalized understanding. Spoke with patient's daughter over the phone, who confirmed that her father had had repeated falls recently, agreed to take him to his PCP for further evaluation. <Elliott Tran, DO - Last Filed: 11/21/21 05:47> Lab Data Labs: Point of Care Testing Glucose POC 86 Discharge Plan Departure Patient Disposition: Home Clinical Impression: Head injury Instructions: How to Prevent Falls Activity Restrictions/Additional Instructions: You were evaluated in the ED today for a fall and head injury. Your CT head, CT C-spine, for clavicle x-ray were normal. You were given some Tylenol for your pain. You may continue to take Tylenol. Please follow-up with your PCP for further workup on frequent falls. Return to the ED if you have worsening symptoms, headache, lethargy, chest pain, shortness of breath. Prescriptions: No Action fluticasone propion-salmeterol [Advair Diskus] 250-50 mcg/dose blister with device 1 puff Inhalation BID 0RF amlodipine 10 mg tablet 10 mg PO DAILY 0RF gemfibrozil 600 mg tablet 600 mg PO DAILY 0RF azelastine 137 mcg (0.1 %) aerosol,spray 0RF albuterol sulfate [ProAir HFA] 90 mcg/actuation HFA aerosol inhaler 1 puff Inhalation PRN PRN (Reason: Shortness Of Breath) 0RF losartan 100 mg tablet 100 mg PO DAILY 0RF atenolol 50 mg tablet 50 mg PO DAILY 0RF loratadine 10 mg tablet 10 mg PO DAILY 0RF ezetimibe [Zetia] 10 mg tablet 10 mg PO DAILY 0RF insulin regular hum U-500 conc [Humulin R U-500 (Conc) Kwikpen] 500 unit/mL (3 mL) insulin pen 0RF cefdinir 300 mg capsule 300 mg PO .q48 Qty: 7 0RF hydrocodone-acetaminophen 5-325 mg tablet 1 tab PO Q6H PRN (Reason: pain) Qty: 10 0RF hydrocodone-acetaminophen 5-325 mg tablet 1 tab PO Q4H PRN (Reason: pain) Qty: 14 0RF Referrals: Vy Mcgee MD [Primary Care Provider] - <Elliott Tran DO - Last Filed: 11/21/21 05:47> [facility] I was immediately available in the department for consultation. This documentation has been reviewed and I agree with assessment and plan. Supervised by Elliott Tran DO
[2021-11-20] MEDS: ACETAMINOPHEN 325 MG TABLET 975 MG PO (18:19)
[2021-11-20 19:39] VITALS: BP 154/72; PULSE 53; RESP 20; O2SAT 93
== END 2021-11-20 19:40 | disposition home or self-care (01) ==
PROVIDERS: Emergency Provider Student in an Organized Health Care Education/Training Program; PCP Internal Medicine
DX: S06.9X1A Unspecified intracranial injury with loss of consciousness of 30 minutes or less, initial encounter (principal); S49.91XA Unspecified injury of right shoulder and upper arm, initial encounter; W01.0XXA Fall on same level from slipping, tripping and stumbling without subsequent striking against object, initial encounter; Z91.81 History of falling
CPT/HCPCS: 36415; 70450; 72125; 73000; 82962; 99284

== ENCOUNTER 2022-01-05 23:52 | Emergency (ER) | payer MEDICARE, OTHER, SELFPAY ==
[2022-01-06] VITALS (50 sets, daily range): BP systolic 142–197; BP diastolic 66–95; PULSE 72–83; RESP 12–32; TEMP 36.5; O2SAT 90–99; BMI 31.6
--- NOTE | 2022-01-06 00:12 | DI.CT.S_ITS ---
PROCEDURE: CT HEAD/BRAIN WO CON INDICATIONS: fall, hit head TECHNIQUE: Noncontrast 4.5 mm thick angled axial sections acquired from the foramen magnum to the vertex, with coronal and sagittal reformats. For radiation dose reduction, the following was used: automated exposure control, adjustment of mA and/or kV according to patient size. COMPARISON: [facility], CT, CT HEAD/BRAIN WO CON, 11/20/2021, 16:09. FINDINGS: Image quality: Excellent. CSF spaces: Basal cisterns are patent. No extra-axial fluid collections. There is mild cerebral volume loss, with resultant ventricular and sulcal prominence. Brain: No intracranial hemorrhage, mass, or mass effect. There are subcortical, periventricular and deep white matter hypodensities consistent with mild chronic small vessel ischemic changes. There is a small region of encephalomalacia redemonstrated in the left cerebral hemisphere compatible with sequelae of prior infarct. The garcia-white matter junction otherwise appears preserved. There is intracranial internal carotid artery atherosclerosis. Skull and face: Calvarium and visualized facial bones are intact, without suspicious lesions. Sinuses: Visualized sinuses and mastoids are clear. IMPRESSION: 1. No acute intracranial abnormality. 2. Mild cerebral volume loss and chronic white matter small vessel ischemic changes. 3. 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 Dictated by: Kt Bernardo M.D. on 01/06/2022 at 1:18 Approved by: Kt Bernardo M.D. on 01/06/2022 at 1:20
[2022-01-06 00:15] LABS: Add Manual Diff / Slide Review NO; Basophils Absolute Auto 100 /uL (0-100); Basophils Percent Auto 1.2 % (0-2); Eosinophils Absolute Auto 300 /uL (0-450); Eosinophils Percent Auto 4.6 % (2-4); Hematocrit 30.8 % (41-53); Hemoglobin 10.2 g/dL (13.5-17.5); Lymphocytes Absolute Auto 700 /uL (1100-4500); Lymphocytes Percent Auto 9.2 % (25-40); Mean Corpuscular HGB Conc 33.2 % (30-36); Mean Corpuscular Volume 93.4 fL (80-100); Monocytes Absolute Auto 800 /uL (0-900); Neutrophils Absolute Auto 5700 /uL (1500-7000); Platelet Count 260 X10^3/uL (150-400); Red Cell Distribution Width 16.1 % (11.6-14.8); White Blood Cell Count 7.6 X10^3/uL (4.5-11.0)
[2022-01-06 00:19] LABS: BUN Creatinine Ratio 10.9 (6-22); Blood Urea Nitrogen 37 mg/dL (9-20); Carbon Dioxide 32 mmol/L (22-32); Chloride 96 mmol/L (98-107); Creatine Kinase 88 U/L (55-170); Estimated Glomerular Filt Rate 19 mL/min (>60); Glucose 117 mg/dL (80-110); HEMOLYSIS < 15 (0-50); Potassium 3.9 mmol/L (3.4-5.1); Sodium 139 mmol/L (137-145)
[2022-01-06 00:31] LABS: Troponin I 0.061 ng/mL (0.01-0.034)
[2022-01-06] MEDS: ONDANSETRON 4 MG/2 ML INJ (00:43)
--- NOTE | 2022-01-06 02:00 | PC.NURSE ---
Pt assisted to restroom in wheelchair. Pt walks with walker at baseline and was able to stand and walk to toilet from wheelchair by himself. Pt reported mild dizziness with this.
--- NOTE | 2022-01-06 03:04 | ED.FALL ---
HPI - Fall <Renea Finn MD - Last Filed: 01/13/22 18:10> General Chief Complaint: Fall Stated Complaint: GLF/LOC Time Seen by Provider: 01/06/22 00:11 Source: EMS Mode of arrival: EMS History of Present Illness HPI Narrative: 66-year-old gentleman with a history of prior stroke, hypertension, hyperlipidemia, diabetes, chronic renal failure on dialysis ([facility] in [place], Saturday) who presents after having a syncopal episode. He describes being in his usual state of health today after dinner he was going to the bathroom and had syncopal episode falling does not appear that he actually made it to the bathroom there was a loss of consciousness and when he awoke he had large volume emesis. He has had a couple of additional episodes of emesis and persistent nausea since that. He describes no nausea vomiting abdominal pain fevers coughing chest pain dizziness diaphoresis prior to this episode this evening. On further questioning he had a similar episode on December 31. He describes walking down his driveway and simply passing out with no preceding symptoms. Loss of consciousness was approximately 15 minutes that time. He did not seek any medical care. Today he is complaining of significant headache, persistent nausea he has a small abrasion to his left forearm and his left foot. His daughter notes that he has had a series of mechanical falls October 12-November 09, 2014 and . He has been evaluated after the majority of those. They did some home safety work and put up hand holds and fall prevention quit meant and he has not had any mechanical falls since the November 20 episode. His daughter and both note that he has been cognitively ?different?. Less focused small personality changes. With evaluation on November 20 [facility] he did have a CT scan that did not show acute findings. Related Data Home Medications Medication Instructions Recorded Confirmed albuterol sulfate 90 mcg/actuation 1 puff inhalation PRN PRN 06/18/18 01/06/22 aerosol inhaler Shortness Of Breath amlodipine 10 mg tablet 10 mg PO DAILY 06/18/18 01/06/22 azelastine 137 mcg (0.1 %) nasal 2 spray intranasal 2XD 06/18/18 01/06/22 spray aerosol ezetimibe 10 mg tablet 10 mg PO DAILY 06/18/18 01/06/22 fluticasone 250 mcg-salmeterol 50 1 puff inhalation BID 06/18/18 01/06/22 mcg/dose blistr powdr for inhalation gemfibrozil 600 mg tablet 600 mg PO DAILY 06/18/18 01/06/22 insulin regular hum U-500 conc 500 See Protocol SUBCUT ACHS 06/18/18 01/06/22 unit/mL(3 mL) subcut pen loratadine 10 mg tablet 10 mg PO DAILY 06/18/18 01/06/22 cholecalciferol (vitamin D3) 25 25 mcg PO BID 01/06/22 01/06/22 mcg (1,000 unit) tablet diclofenac sodium 1 % topical gel 4 g topical QID 01/06/22 01/06/22 duloxetine 60 mg capsule,delayed 60 mg PO BID 01/06/22 01/06/22 release insulin glargine 100 unit/mL 10 unit SUBCUT DAILY 01/06/22 01/06/22 subcutaneous cartridge liothyronine 25 mcg tablet 25 mcg PO DAILY 01/06/22 01/06/22 magnesium oxide 420 mg tablet 420 mg PO BIDWMEAL 01/06/22 01/06/22 montelukast 10 mg tablet 10 mg PO DAILY PRN Dry Skin 01/06/22 01/06/22 tamsulosin 0.4 mg capsule 0.4 mg PO DAILY 01/06/22 01/06/22 Previous Rx's Medication Instructions Recorded cephalexin 500 mg capsule 500 mg PO BID #14 caps 01/10/22 Allergies Allergy/AdvReac Type Severity Reaction Status Date / Time Influenza Virus Vaccines Allergy Unconscious Verified 11/20/21 16:00 levofloxacin Allergy Anaphylaxis Verified 01/06/22 03:48 Beta-Blockers AdvReac Verified 01/06/22 03:48 (Beta-Adrenergic Bloc codeine AdvReac Agitated Verified 11/20/21 16:00 diazepam AdvReac Drowsy Verified 11/20/21 16:00 morphine AdvReac Vomiting Verified 11/20/21 16:00 pravastatin AdvReac Joint Pain Verified 01/06/22 03:48 rosuvastatin AdvReac Joint Pain Verified 01/06/22 03:48 simvastatin AdvReac Verified 01/06/22 03:48 [id number] Reductase AdvReac Verified 11/20/21 15:58 Inhibitor Review of Systems <Renea L Laursen, MD - Last Filed: 01/13/22 18:10> Review of Systems Narrative: Remainder of complete review of systems is otherwise unremarkable except for that included in the HPI. Patient History <Renea Finn MD - Last Filed: 01/13/22 18:10> Medical History (Updated 01/07/22 @ 19:17 by Jai Velez DO) Amputated toe of left foot Arteriovenous fistula of right upper extremity Asthma Chronic kidney disease with end stage renal failure on dialysis Coronary artery disease Diabetes Diastolic heart failure Hyperlipidemia Hypothyroid Stroke Surgical History (Updated 01/06/22 @ 03:37 by Renea Finn MD) No pertinent past surgical history Status post cholecystectomy Social History Smoking Status: Never smoker Smoking Status: Never smoker alcohol intake frequency: 0-2 drinks per day Substance Use Type: does not use Exam <Renea Finn MD - Last Filed: 01/13/22 18:10> Initial Vital Signs Initial Vital Signs: Vital Signs Temperature 97.7 F 01/06/22 00:01 Pulse Rate 74 01/06/22 00:01 Respiratory Rate 19 01/06/22 00:01 Blood Pressure 152/74 H 01/06/22 00:01 Pulse Oximetry 98 01/06/22 00:01 Oxygen Delivery Method 01/06/22 00:01 Oxygen Flow Rate 5 01/06/22 00:01 General: Chronically ill-appearing gentleman in no acute distress. Able to give a complete and coherent history. Well-nourished well-developed HEENT: Moist mucous membranes, normal sclera with reactive pupils, Neck: No JVD, supple Respiratory: Lungs scattered mild wheezes in upper lung dow, no rhonchi, no crackles Full and symmetrical air movement Cardiac: Regular rate and rhythm, 3/6 systolic murmur, no bruits. Abdomen: Soft, obese, nontender, continuous glucose monitor in place, good bowel tones, no flank pain Skin: Quite thin, multiple bruises in various stages of healing, mild abrasion in the left upper forearm. Minor abrasion to the dorsum of the left foot Neurologic: Grossly neurologically intact with no obvious asymmetries or abnormalities Extremities: No new trauma, good capillary refill, good thrill in the right upper extremity fistula Psych: Cooperative, appropriate insight and affect <Lesly Maxwell, DO - Last Filed: 01/08/22 13:17> Initial Vital Signs Initial Vital Signs: Vital Signs Temperature 97.7 F 01/06/22 00:01 Pulse Rate 74 01/06/22 00:01 Respiratory Rate 19 01/06/22 00:01 Blood Pressure 152/74 H 01/06/22 00:01 Pulse Oximetry 98 01/06/22 00:01 Oxygen Delivery Method 01/06/22 00:01 Oxygen Flow Rate 5 01/06/22 00:01 <Jai Velez, DO - Last Filed: 01/07/22 19:15> Initial Vital Signs Initial Vital Signs: Vital Signs Temperature 97.7 F 01/06/22 00:01 Pulse Rate 74 01/06/22 00:01 Respiratory Rate 19 01/06/22 00:01 Blood Pressure 152/74 H 01/06/22 00:01 Pulse Oximetry 98 01/06/22 00:01 Oxygen Delivery Method 01/06/22 00:01 Oxygen Flow Rate 5 01/06/22 00:01 <Elliott Tran, DO - Last Filed: 01/10/22 13:16> Initial Vital Signs Initial Vital Signs: Vital Signs Temperature 97.7 F 01/06/22 00:01 Pulse Rate 74 01/06/22 00:01 Respiratory Rate 19 01/06/22 00:01 Blood Pressure 152/74 H 01/06/22 00:01 Pulse Oximetry 98 01/06/22 00:01 Oxygen Delivery Method 01/06/22 00:01 Oxygen Flow Rate 5 01/06/22 00:01 Course <Renea Finn MD - Last Filed: 01/13/22 18:10> Orders Ordered: Discontinued Medications Acetaminophen (Acetaminophen 325 Mg Tablet) 650 mg PO NOW ONE Stop: 01/06/22 03:35 Last Admin: 01/06/22 03:41 Dose: 650 mg Documented By: SAHIL Acetaminophen (Acetaminophen 325 Mg Tablet) 650 mg PO NOW ONE Stop: 01/07/22 00:51 Last Admin: 01/07/22 04:42 Dose: 650 mg Documented By: STEVAN Albuterol (Albuterol Hfa Mdi 60 Puff/8 Gm Inhaler) 2 puff INH RTQ4HR PRN PRN Reason: Shortness Of Breath Albuterol (Albuterol 2.5 Mg/3 Ml Neb (Adult)) 2.5 mg INH RTQ4HR PRN PRN Reason: Shortness Of Breath Albuterol/Ipratropium (Albuterol/Ipratropium 3 Ml Ampul) 3 ml INH NOW ONE Stop: 01/06/22 13:45 Last Admin: 01/06/22 14:06 Dose: 3 ml Documented By: JUSTO Amlodipine Besylate (Amlodipine 5 Mg Tablet) 10 mg PO DAILY [facility] Last Admin: 01/07/22 14:00 Dose: 10 mg Documented By: CK Diclofenac Sodium (Diclofenac 1% Gel 100 Gm) 1 applic TOP BID PRN PRN Reason: Pain, Moderate (4-6) Gemfibrozil (Gemfibrozil 600 Mg Tablet) 600 mg PO DAILY [facility] Last Admin: 01/07/22 09:07 Dose: Not Given Documented By: STEVAN Gemfibrozil (Gemfibrozil 600 Mg Tablet) 600 mg PO BEDTIME [facility] Dextrose (D10w) 250 mls @ 999 mls/hr IV PRN PRN PRN Reason: Hypoglycemia Last Infusion: 01/07/22 00:06 Dose: 0 mls/hr Documented By: Admin: 01/06/22 21:31 Dose: 999 mls/hr Documented By: GABRIELLA Dextrose (D10w) 1,000 mls @ 100 mls/hr IV CONT [facility] Last Infusion: 01/07/22 06:58 Dose: 0 mls/hr Documented By: Infusion: 01/07/22 04:40 Dose: 100 mls/hr Documented By: Infusion: 01/07/22 03:40 Dose: 125 mls/hr Documented By: Admin: 01/06/22 23:12 Dose: 100 mls/hr Documented By: SALLY Ceftriaxone Sodium 2,000 mg/ (Sodium Chloride) 100 mls @ 200 mls/hr IV NOW ONE Stop: 01/07/22 07:14 Last Infusion: 01/07/22 09:09 Dose: 0 mls/hr Documented By: Admin: 01/07/22 08:25 Dose: 200 mls/hr Documented By: STEVAN Insulin Glargine (Insulin Glargine 100 Unit/Ml 3ml Pen) 10 unit SUBCUT BEDTIME [facility] Last Admin: 01/06/22 21:28 Dose: Not Given Documented By: Admin: 01/06/22 18:44 Dose: 10 unit Documented By: GABRIELLA Co-signed By: TAL Insulin Human Regular (Insulin Regular 100 Unit/Ml 3 Ml Vial) 0 unit SUBCUT ACHS [facility] Last Admin: 01/07/22 11:02 Dose: Not Given Documented By: Admin: 01/07/22 08:18 Dose: Not Given Documented By: Admin: 01/06/22 21:28 Dose: Not Given Documented By: Admin: 01/06/22 17:30 Dose: 55 unit Documented By: GABRIELLA Co-signed By: TAL Liothyronine Sodium (Liothyronine 5 Mcg Tablet) 25 mcg PO 0600 [facility] Last Admin: 01/07/22 06:54 Dose: 25 mcg Documented By: SALLY Liothyronine Sodium (Liothyronine 25 Mcg Tablet) 25 mcg PO 0600 [facility] Sodium Polystyrene Sulfonate (Sodium Polystyrene Sulfon/Sorb 15 Gm/60 Ml Cup) 45 gm PO NOW ONE Stop: 01/07/22 13:36 Last Admin: 01/07/22 14:00 Dose: 45 gm Documented By: CK Tamsulosin HCl (Tamsulosin 0.4 Mg Capsule) 0.4 mg PO DAILY [facility] Last Admin: 01/07/22 08:36 Dose: 0.4 mg Documented By: STEVAN Vital Signs Vital signs: Vital Signs - 8 hr 01/07/22 12:35 01/07/22 12:36 01/07/22 12:36 Pulse Rate 75 Respiratory Rate 16 Blood Pressure 155/74 H 155/74 H Pulse Oximetry 100 99 Oxygen Delivery Method CPAP Oxygen Flow Rate 5 01/07/22 17:15 Pulse Rate 78 Respiratory Rate Blood Pressure 173/81 H Pulse Oximetry 99 Oxygen Delivery Method CPAP Oxygen Flow Rate 5 <Lesly Maxwell, DO - Last Filed: 01/08/22 13:17> Orders Ordered: Discontinued Medications Acetaminophen (Acetaminophen 325 Mg Tablet) 650 mg PO NOW ONE Stop: 01/06/22 03:35 Last Admin: 01/06/22 03:41 Dose: 650 mg Documented By: EB Acetaminophen (Acetaminophen 325 Mg Tablet) 650 mg PO NOW ONE Stop: 01/07/22 00:51 Last Admin: 01/07/22 04:42 Dose: 650 mg Documented By: STEVAN Albuterol (Albuterol Hfa Mdi 60 Puff/8 Gm Inhaler) 2 puff INH RTQ4HR PRN PRN Reason: Shortness Of Breath Albuterol (Albuterol 2.5 Mg/3 Ml Neb (Adult)) 2.5 mg INH RTQ4HR PRN PRN Reason: Shortness Of Breath Albuterol/Ipratropium (Albuterol/Ipratropium 3 Ml Ampul) 3 ml INH NOW ONE Stop: 01/06/22 13:45 Last Admin: 01/06/22 14:06 Dose: 3 ml Documented By: JUSTO Amlodipine Besylate (Amlodipine 5 Mg Tablet) 10 mg PO DAILY [facility] Last Admin: 01/07/22 14:00 Dose: 10 mg Documented By: CK Diclofenac Sodium (Diclofenac 1% Gel 100 Gm) 1 applic TOP BID PRN PRN Reason: Pain, Moderate (4-6) Gemfibrozil (Gemfibrozil 600 Mg Tablet) 600 mg PO DAILY [facility] Last Admin: 01/07/22 09:07 Dose: Not Given Documented By: STEVAN Gemfibrozil (Gemfibrozil 600 Mg Tablet) 600 mg PO BEDTIME [facility] Dextrose (D10w) 250 mls @ 999 mls/hr IV PRN PRN PRN Reason: Hypoglycemia Last Infusion: 01/07/22 00:06 Dose: 0 mls/hr Documented By: Admin: 01/06/22 21:31 Dose: 999 mls/hr Documented By: GABRIELLA Dextrose (D10w) 1,000 mls @ 100 mls/hr IV CONT [facility] Last Infusion: 01/07/22 06:58 Dose: 0 mls/hr Documented By: Infusion: 01/07/22 04:40 Dose: 100 mls/hr Documented By: Infusion: 01/07/22 03:40 Dose: 125 mls/hr Documented By: Admin: 01/06/22 23:12 Dose: 100 mls/hr Documented By: SALLY Ceftriaxone Sodium 2,000 mg/ (Sodium Chloride) 100 mls @ 200 mls/hr IV NOW ONE Stop: 01/07/22 07:14 Last Infusion: 01/07/22 09:09 Dose: 0 mls/hr Documented By: Admin: 01/07/22 08:25 Dose: 200 mls/hr Documented By: STEVAN Insulin Glargine (Insulin Glargine 100 Unit/Ml 3ml Pen) 10 unit SUBCUT BEDTIME [facility] Last Admin: 01/06/22 21:28 Dose: Not Given Documented By: Admin: 01/06/22 18:44 Dose: 10 unit Documented By: GABRIELLA Co-signed By: TAL Insulin Human Regular (Insulin Regular 100 Unit/Ml 3 Ml Vial) 0 unit SUBCUT ACHS [facility] Last Admin: 01/07/22 11:02 Dose: Not Given Documented By: Admin: 01/07/22 08:18 Dose: Not Given Documented By: Admin: 01/06/22 21:28 Dose: Not Given Documented By: Admin: 01/06/22 17:30 Dose: 55 unit Documented By: GABRIELLA Co-signed By: TAL Liothyronine Sodium (Liothyronine 5 Mcg Tablet) 25 mcg PO 0600 [facility] Last Admin: 01/07/22 06:54 Dose: 25 mcg Documented By: SALLY Liothyronine Sodium (Liothyronine 25 Mcg Tablet) 25 mcg PO 0600 [facility] Sodium Polystyrene Sulfonate (Sodium Polystyrene Sulfon/Sorb 15 Gm/60 Ml Cup) 45 gm PO NOW ONE Stop: 01/07/22 13:36 Last Admin: 01/07/22 14:00 Dose: 45 gm Documented By: CK Tamsulosin HCl (Tamsulosin 0.4 Mg Capsule) 0.4 mg PO DAILY [facility] Last Admin: 01/07/22 08:36 Dose: 0.4 mg Documented By: STEVAN Vital Signs Vital signs: Vital Signs - 8 hr 01/07/22 12:35 01/07/22 12:36 01/07/22 12:36 Pulse Rate 75 Respiratory Rate 16 Blood Pressure 155/74 H 155/74 H Pulse Oximetry 100 99 Oxygen Delivery Method CPAP Oxygen Flow Rate 5 01/07/22 17:15 Pulse Rate 78 Respiratory Rate Blood Pressure 173/81 H Pulse Oximetry 99 Oxygen Delivery Method CPAP Oxygen Flow Rate 5 <Jai Velez, DO - Last Filed: 01/07/22 19:15> Orders Ordered: Discontinued Medications Acetaminophen (Acetaminophen 325 Mg Tablet) 650 mg PO NOW ONE Stop: 01/06/22 03:35 Last Admin: 01/06/22 03:41 Dose: 650 mg Documented By: SAHIL Acetaminophen (Acetaminophen 325 Mg Tablet) 650 mg PO NOW ONE Stop: 01/07/22 00:51 Last Admin: 01/07/22 04:42 Dose: 650 mg Documented By: STEVAN Albuterol (Albuterol Hfa Mdi 60 Puff/8 Gm Inhaler) 2 puff INH RTQ4HR PRN PRN Reason: Shortness Of Breath Albuterol (Albuterol 2.5 Mg/3 Ml Neb (Adult)) 2.5 mg INH RTQ4HR PRN PRN Reason: Shortness Of Breath Albuterol/Ipratropium (Albuterol/Ipratropium 3 Ml Ampul) 3 ml INH NOW ONE Stop: 01/06/22 13:45 Last Admin: 01/06/22 14:06 Dose: 3 ml Documented By: JUSTO Amlodipine Besylate (Amlodipine 5 Mg Tablet) 10 mg PO DAILY [facility] Last Admin: 01/07/22 14:00 Dose: 10 mg Documented By: CK Diclofenac Sodium (Diclofenac 1% Gel 100 Gm) 1 applic TOP BID PRN PRN Reason: Pain, Moderate (4-6) Gemfibrozil (Gemfibrozil 600 Mg Tablet) 600 mg PO DAILY [facility] Last Admin: 01/07/22 09:07 Dose: Not Given Documented By: STEVAN Gemfibrozil (Gemfibrozil 600 Mg Tablet) 600 mg PO BEDTIME [facility] Dextrose (D10w) 250 mls @ 999 mls/hr IV PRN PRN PRN Reason: Hypoglycemia Last Infusion: 01/07/22 00:06 Dose: 0 mls/hr Documented By: Admin: 01/06/22 21:31 Dose: 999 mls/hr Documented By: GABRIELLA Dextrose (D10w) 1,000 mls @ 100 mls/hr IV CONT [facility] Last Infusion: 01/07/22 06:58 Dose: 0 mls/hr Documented By: Infusion: 01/07/22 04:40 Dose: 100 mls/hr Documented By: Infusion: 01/07/22 03:40 Dose: 125 mls/hr Documented By: Admin: 01/06/22 23:12 Dose: 100 mls/hr Documented By: SALLY Ceftriaxone Sodium 2,000 mg/ (Sodium Chloride) 100 mls @ 200 mls/hr IV NOW ONE Stop: 01/07/22 07:14 Last Infusion: 01/07/22 09:09 Dose: 0 mls/hr Documented By: Admin: 01/07/22 08:25 Dose: 200 mls/hr Documented By: STEVAN Insulin Glargine (Insulin Glargine 100 Unit/Ml 3ml Pen) 10 unit SUBCUT BEDTIME [facility] Last Admin: 01/06/22 21:28 Dose: Not Given Documented By: Admin: 01/06/22 18:44 Dose: 10 unit Documented By: GABRIELLA Co-signed By: TAL Insulin Human Regular (Insulin Regular 100 Unit/Ml 3 Ml Vial) 0 unit SUBCUT ACHS [facility] Last Admin: 01/07/22 11:02 Dose: Not Given Documented By: Admin: 01/07/22 08:18 Dose: Not Given Documented By: Admin: 01/06/22 21:28 Dose: Not Given Documented By: Admin: 01/06/22 17:30 Dose: 55 unit Documented By: GABRIELLA Co-signed By: TAL Liothyronine Sodium (Liothyronine 5 Mcg Tablet) 25 mcg PO 0600 [facility] Last Admin: 01/07/22 06:54 Dose: 25 mcg Documented By: SALLY Liothyronine Sodium (Liothyronine 25 Mcg Tablet) 25 mcg PO 0600 [facility] Sodium Polystyrene Sulfonate (Sodium Polystyrene Sulfon/Sorb 15 Gm/60 Ml Cup) 45 gm PO NOW ONE Stop: 01/07/22 13:36 Last Admin: 01/07/22 14:00 Dose: 45 gm Documented By: CK Tamsulosin HCl (Tamsulosin 0.4 Mg Capsule) 0.4 mg PO DAILY [facility] Last Admin: 01/07/22 08:36 Dose: 0.4 mg Documented By: STEVAN Vital Signs Vital signs: Vital Signs - 8 hr 01/07/22 12:35 01/07/22 12:36 01/07/22 12:36 Pulse Rate 75 Respiratory Rate 16 Blood Pressure 155/74 H 155/74 H Pulse Oximetry 100 99 Oxygen Delivery Method CPAP Oxygen Flow Rate 5 01/07/22 17:15 Pulse Rate 78 Respiratory Rate Blood Pressure 173/81 H Pulse Oximetry 99 Oxygen Delivery Method CPAP Oxygen Flow Rate 5 <Elliott Tran, DO - Last Filed: 01/10/22 13:16> Course Course Narrative: Urine culture is back, notes Proteus mirabilis, contacted patient at home. Discussed allergies, patient would prefer antibiotic be sent to the [facility] pharmacy in [place]. Orders Ordered: Discontinued Medications Acetaminophen (Acetaminophen 325 Mg Tablet) 650 mg PO NOW ONE Stop: 01/06/22 03:35 Last Admin: 01/06/22 03:41 Dose: 650 mg Documented By: SAHIL Acetaminophen (Acetaminophen 325 Mg Tablet) 650 mg PO NOW ONE Stop: 01/07/22 00:51 Last Admin: 01/07/22 04:42 Dose: 650 mg Documented By: STEVAN Albuterol (Albuterol Hfa Mdi 60 Puff/8 Gm Inhaler) 2 puff INH RTQ4HR PRN PRN Reason: Shortness Of Breath Albuterol (Albuterol 2.5 Mg/3 Ml Neb (Adult)) 2.5 mg INH RTQ4HR PRN PRN Reason: Shortness Of Breath Albuterol/Ipratropium (Albuterol/Ipratropium 3 Ml Ampul) 3 ml INH NOW ONE Stop: 01/06/22 13:45 Last Admin: 01/06/22 14:06 Dose: 3 ml Documented By: JUSTO Amlodipine Besylate (Amlodipine 5 Mg Tablet) 10 mg PO DAILY [facility] Last Admin: 01/07/22 14:00 Dose: 10 mg Documented By: CK Diclofenac Sodium (Diclofenac 1% Gel 100 Gm) 1 applic TOP BID PRN PRN Reason: Pain, Moderate (4-6) Gemfibrozil (Gemfibrozil 600 Mg Tablet) 600 mg PO DAILY [facility] Last Admin: 01/07/22 09:07 Dose: Not Given Documented By: STEVAN Gemfibrozil (Gemfibrozil 600 Mg Tablet) 600 mg PO BEDTIME [facility] Dextrose (D10w) 250 mls @ 999 mls/hr IV PRN PRN PRN Reason: Hypoglycemia Last Infusion: 01/07/22 00:06 Dose: 0 mls/hr Documented By: Admin: 01/06/22 21:31 Dose: 999 mls/hr Documented By: GABRIELLA Dextrose (D10w) 1,000 mls @ 100 mls/hr IV CONT [facility] Last Infusion: 01/07/22 06:58 Dose: 0 mls/hr Documented By: HNSteph Infusion: 01/07/22 04:40 Dose: 100 mls/hr Documented By: HNSteph Infusion: 01/07/22 03:40 Dose: 125 mls/hr Documented By: Admin: 01/06/22 23:12 Dose: 100 mls/hr Documented By: SALLY Ceftriaxone Sodium 2,000 mg/ (Sodium Chloride) 100 mls @ 200 mls/hr IV NOW ONE Stop: 01/07/22 07:14 Last Infusion: 01/07/22 09:09 Dose: 0 mls/hr Documented By: Admin: 01/07/22 08:25 Dose: 200 mls/hr Documented By: STEVAN Insulin Glargine (Insulin Glargine 100 Unit/Ml 3ml Pen) 10 unit SUBCUT BEDTIME [facility] Last Admin: 01/06/22 21:28 Dose: Not Given Documented By: Admin: 01/06/22 18:44 Dose: 10 unit Documented By: GABRIELLA Co-signed By: TAL Insulin Human Regular (Insulin Regular 100 Unit/Ml 3 Ml Vial) 0 unit SUBCUT ACHS [facility] Last Admin: 01/07/22 11:02 Dose: Not Given Documented By: Admin: 01/07/22 08:18 Dose: Not Given Documented By: Admin: 01/06/22 21:28 Dose: Not Given Documented By: Admin: 01/06/22 17:30 Dose: 55 unit Documented By: GABRIELLA Co-signed By: TAL Liothyronine Sodium (Liothyronine 5 Mcg Tablet) 25 mcg PO 0600 [facility] Last Admin: 01/07/22 06:54 Dose: 25 mcg Documented By: SALLY Liothyronine Sodium (Liothyronine 25 Mcg Tablet) 25 mcg PO 0600 [facility] Sodium Polystyrene Sulfonate (Sodium Polystyrene Sulfon/Sorb 15 Gm/60 Ml Cup) 45 gm PO NOW ONE Stop: 01/07/22 13:36 Last Admin: 01/07/22 14:00 Dose: 45 gm Documented By: CK Tamsulosin HCl (Tamsulosin 0.4 Mg Capsule) 0.4 mg PO DAILY [facility] Last Admin: 01/07/22 08:36 Dose: 0.4 mg Documented By: STEVAN Vital Signs Vital signs: Vital Signs - 8 hr 01/07/22 12:35 01/07/22 12:36 01/07/22 12:36 Pulse Rate 75 Respiratory Rate 16 Blood Pressure 155/74 H 155/74 H Pulse Oximetry 100 99 Oxygen Delivery Method CPAP Oxygen Flow Rate 5 01/07/22 17:15 Pulse Rate 78 Respiratory Rate Blood Pressure 173/81 H Pulse Oximetry 99 Oxygen Delivery Method CPAP Oxygen Flow Rate 5 MDM - Fall <Renea Finn MD - Last Filed: 01/13/22 18:10> Lab Data Result diagrams: 01/07/22 10:10 01/07/22 10:10 Labs: Lab Results 01/06/22 01/06/22 01/06/22 Range/Units 00:00 00:00 03:30 WBC 7.6 (4.5-11.0) X10^3/uL RBC 3.30 L (4.5-5.9) X10^6/uL Hgb 10.2 L (13.5-17.5) g/dL Hct 30.8 L (41-53) % MCV 93.4 (80-100) fL MCH 31.0 (26-34) PG MCHC 33.2 (30-36) % RDW 16.1 H (11.6-14.8) % Plt Count 260 (150-400) X10^3/uL Neut % (Auto) 75.0 (50-75) % Lymph % (Auto) 9.2 L (25-40) % [place] % (Auto) 10.0 (3-14) % Eos % (Auto) 4.6 H (2-4) % Baso % (Auto) 1.2 (0-2) % Neut # (Auto) 5700 (0725-8931) /uL Lymph # (Auto) 700 L (1311-7964) /uL [place] # (Auto) 800 (0-900) /uL Eos # (Auto) 300 (0-450) /uL Baso # (Auto) 100 (0-100) /uL Sodium 139 (137-145) mmol/L Potassium 3.9 (3.4-5.1) mmol/L Chloride 96 L (98-107) mmol/L Carbon Dioxide 32 (22-32) mmol/L BUN 37 H (9-20) mg/dL Creatinine 3.40 H (0.66-1.25) mg/dL Estimated GFR 19 L (>60) mL/min BUN/Creatinine Ratio 10.9 (6-22) Glucose 117 H (80-110) mg/dL Calcium 9.0 (8.4-10.2) mg/dL Total Bilirubin (0.2-1.3) mg/dL AST (17-59) IU/L ALT (<50) IU/L Alkaline Phosphatase (38-126) U/L Total Creatine Kinase 88 (55-170) U/L CK-MB (CK-2) TNP CK-MB (CK-2) Rel Index TNP Troponin I 0.061 H (0.01-0.034) ng/mL NT-Pro-B Natriuret Pep (<125) pg/mL Total Protein (6.3-8.2) g/dL Albumin (3.5-5.0) g/dL Globulin (1.7-4.1) g/dL Albumin/Globulin Ratio (1.0-2.8) Urine Color Urine Appearance Urine pH (4.5-8.0) Ur Specific [place] (1.000-1.035) Urine Protein (Negative) Urine Glucose (UA) (Negative) g/dL Urine Ketones (NEGATIVE) Urine Occult Blood (Negative) Urine Nitrate (Negative) Urine Bilirubin (NEGATIVE) Urine Urobilinogen (0.2) E.U./dL Ur Leukocyte Esterase (NEGATIVE) Urine RBC (0-5/HPF) Urine WBC (0-5/HPF) Urine Bacteria (None) Ur Culture Indicated? SARS-CoV-2 (PCR) Negative (Negative) 01/06/22 01/06/22 01/06/22 Range/Units 03:51 03:57 12:10 WBC (4.5-11.0) X10^3/uL RBC (4.5-5.9) X10^6/uL Hgb (13.5-17.5) g/dL Hct (41-53) % MCV (80-100) fL MCH (26-34) PG MCHC (30-36) % RDW (11.6-14.8) % Plt Count (150-400) X10^3/uL Neut % (Auto) (50-75) % Lymph % (Auto) (25-40) % [place] % (Auto) (3-14) % Eos % (Auto) (2-4) % Baso % (Auto) (0-2) % Neut # (Auto) (1024-9253) /uL Lymph # (Auto) (6483-4776) /uL [place] # (Auto) (0-900) /uL Eos # (Auto) (0-450) /uL Baso # (Auto) (0-100) /uL Sodium (137-145) mmol/L Potassium (3.4-5.1) mmol/L Chloride (98-107) mmol/L Carbon Dioxide (22-32) mmol/L BUN (9-20) mg/dL Creatinine (0.66-1.25) mg/dL Estimated GFR (>60) mL/min BUN/Creatinine Ratio (6-22) Glucose (80-110) mg/dL Calcium (8.4-10.2) mg/dL Total Bilirubin (0.2-1.3) mg/dL AST (17-59) IU/L ALT (<50) IU/L Alkaline Phosphatase (38-126) U/L Total Creatine Kinase (55-170) U/L CK-MB (CK-2) CK-MB (CK-2) Rel Index Troponin I 0.069 H 0.067 H (0.01-0.034) ng/mL NT-Pro-B Natriuret Pep 87209 H (<125) pg/mL Total Protein (6.3-8.2) g/dL Albumin (3.5-5.0) g/dL Globulin (1.7-4.1) g/dL Albumin/Globulin Ratio (1.0-2.8) Urine Color Urine Appearance Urine pH (4.5-8.0) Ur Specific [place] (1.000-1.035) Urine Protein (Negative) Urine Glucose (UA) (Negative) g/dL Urine Ketones (NEGATIVE) Urine Occult Blood (Negative) Urine Nitrate (Negative) Urine Bilirubin (NEGATIVE) Urine Urobilinogen (0.2) E.U./dL Ur Leukocyte Esterase (NEGATIVE) Urine RBC (0-5/HPF) Urine WBC (0-5/HPF) Urine Bacteria (None) Ur Culture Indicated? SARS-CoV-2 (PCR) (Negative) 01/06/22 01/07/22 01/07/22 Range/Units 19:11 10:10 10:10 WBC 7.2 (4.5-11.0) X10^3/uL RBC 3.33 L (4.5-5.9) X10^6/uL Hgb 10.3 L (13.5-17.5) g/dL Hct 30.9 L (41-53) % MCV 92.8 (80-100) fL MCH 31.0 (26-34) PG MCHC 33.4 (30-36) % RDW 16.2 H (11.6-14.8) % Plt Count 262 (150-400) X10^3/uL Neut % (Auto) 73.2 (50-75) % Lymph % (Auto) 9.3 L (25-40) % [place] % (Auto) 10.5 (3-14) % Eos % (Auto) 5.3 H (2-4) % Baso % (Auto) 1.7 (0-2) % Neut # (Auto) 5300 (5910-6558) /uL Lymph # (Auto) 700 L (4438-9323) /uL [place] # (Auto) 800 (0-900) /uL Eos # (Auto) 400 (0-450) /uL Baso # (Auto) 100 (0-100) /uL Sodium 136 L (137-145) mmol/L Potassium 5.2 H D (3.4-5.1) mmol/L Chloride 95 L (98-107) mmol/L Carbon Dioxide 31 (22-32) mmol/L BUN 52 H (9-20) mg/dL Creatinine 4.13 H (0.66-1.25) mg/dL Estimated GFR 15 L (>60) mL/min BUN/Creatinine Ratio 12.6 (6-22) Glucose 125 H (80-110) mg/dL Calcium 9.3 (8.4-10.2) mg/dL Total Bilirubin 0.9 (0.2-1.3) mg/dL AST 26 (17-59) IU/L ALT 14 (<50) IU/L Alkaline Phosphatase 108 (38-126) U/L Total Creatine Kinase (55-170) U/L CK-MB (CK-2) CK-MB (CK-2) Rel Index Troponin I (0.01-0.034) ng/mL NT-Pro-B Natriuret Pep (<125) pg/mL Total Protein 6.9 (6.3-8.2) g/dL Albumin 4.2 (3.5-5.0) g/dL Globulin 2.7 (1.7-4.1) g/dL Albumin/Globulin Ratio 1.6 (1.0-2.8) Urine Color Yellow Urine Appearance Clear Urine pH 8.0 (4.5-8.0) Ur Specific [place] 1.010 (1.000-1.035) Urine Protein 3+ H (Negative) Urine Glucose (UA) 1+ H (Negative) g/dL Urine Ketones Negative (NEGATIVE) Urine Occult Blood 1+ H (Negative) Urine Nitrate Positive H (Negative) Urine Bilirubin Negative (NEGATIVE) Urine Urobilinogen 0.2 (0.2) E.U./dL Ur Leukocyte Esterase Trace H (NEGATIVE) Urine RBC 0-1/hpf (0-5/HPF) Urine WBC 5-10/hpf H (0-5/HPF) Urine Bacteria Many (>30) H (None) Ur Culture Indicated? Specimen cultured SARS-CoV-2 (PCR) (Negative) Point of Care Testing Glucose POC [address] scan - head: Radiologist's Impression: FINDINGS:? Image quality:? Excellent.? ? CSF spaces:? Basal cisterns are patent.? No extra-axial fluid collections.? There is mild cerebral volume loss, with resultant ventricular and sulcal prominence.? ? Brain:? No intracranial hemorrhage, mass, or mass effect.? There are subcortical, periventricular and deep white matter hypodensities consistent with mild chronic small vessel ischemic changes.? There is a small region of encephalomalacia redemonstrated in the left cerebral hemisphere compatible with sequelae of prior infarct.? The garcia-white matter junction otherwise appears preserved.? There is intracranial internal carotid artery atherosclerosis.? ? Skull and face:? Calvarium and visualized facial bones are intact, without suspicious lesions.? ? Sinuses:? Visualized sinuses and mastoids are clear.? ? IMPRESSION:? ? 1. No acute intracranial abnormality. ? 2. Mild cerebral volume loss and chronic white matter small vessel ischemic changes. ? 3. 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 ? ? Dictated by: Kt Bernardo M.D. on 01/06/2022 at 1:18 ? ? Chest x-ray: Radiologist's Impression: Cardiomegaly with pulmonary congestion, probable low-grade interstitial edema, favor congestive heart failure. Widened upper mediastinum. This may represent mediastinal fat, mediastinal mass or vascular shadows. Aneurysm is considered. Follow-up CT chest is advised Teresa Ordonez DO ECG Data Interpretation: Sinus rhythm with first-degree block at a rate of 73 Left ventricular hypertrophy, left axis deviation No acute ischemic changes MDM Narrative Medical decision making narrative: 66-year-old gentleman with end-stage kidney disease on dialysis, congestive heart failure, hypertension, hyperlipidemia presents after a syncopal episode today. Did not seem to be vasovagal, stroke related, hypo or hypo tension related and no signs of infection. Most likely etiology is cardiac syncope at this time. Workup does not suggest acute coronary syndrome, intracranial bleed or obvious stroke findings. On further questioning patient had a similar episode with a 15 minute loss of consciousness on December 31 with no workup at that time. Given to significant syncopal episodes within the last 6 days I believe admission for cardiac syncope workup is warranted. He will need a facility that is capable of dialysis. He is due for routine dialysis later today, there is no immediate urgency with potassium levels at 3.9, BUN at 37 and creatinine at 3.4 with no obvious fluid overload. He states that previously with admissions he has typically gone to [facility] for care. Will begin trying there and will expand bed search as needed. Chest x-ray indicates widened upper mediastinum. CT scan of the chest is ordered. <Lesly Maxwell DO - Last Filed: 01/08/22 13:17> Lab Data Labs: Lab Results 01/06/22 01/06/22 01/06/22 Range/Units 00:00 00:00 03:30 WBC 7.6 (4.5-11.0) X10^3/uL RBC 3.30 L (4.5-5.9) X10^6/uL Hgb 10.2 L (13.5-17.5) g/dL Hct 30.8 L (41-53) % MCV 93.4 (80-100) fL MCH 31.0 (26-34) PG MCHC 33.2 (30-36) % RDW 16.1 H (11.6-14.8) % Plt Count 260 (150-400) X10^3/uL Neut % (Auto) 75.0 (50-75) % Lymph % (Auto) 9.2 L (25-40) % [place] % (Auto) 10.0 (3-14) % Eos % (Auto) 4.6 H (2-4) % Baso % (Auto) 1.2 (0-2) % Neut # (Auto) 5700 (2103-7775) /uL Lymph # (Auto) 700 L (7186-7588) /uL [place] # (Auto) 800 (0-900) /uL Eos # (Auto) 300 (0-450) /uL Baso # (Auto) 100 (0-100) /uL Sodium 139 (137-145) mmol/L Potassium 3.9 (3.4-5.1) mmol/L Chloride 96 L (98-107) mmol/L Carbon Dioxide 32 (22-32) mmol/L BUN 37 H (9-20) mg/dL Creatinine 3.40 H (0.66-1.25) mg/dL Estimated GFR 19 L (>60) mL/min BUN/Creatinine Ratio 10.9 (6-22) Glucose 117 H (80-110) mg/dL Calcium 9.0 (8.4-10.2) mg/dL Total Bilirubin (0.2-1.3) mg/dL AST (17-59) IU/L ALT (<50) IU/L Alkaline Phosphatase (38-126) U/L Total Creatine Kinase 88 (55-170) U/L CK-MB (CK-2) TNP CK-MB (CK-2) Rel Index TNP Troponin I 0.061 H (0.01-0.034) ng/mL NT-Pro-B Natriuret Pep (<125) pg/mL Total Protein (6.3-8.2) g/dL Albumin (3.5-5.0) g/dL Globulin (1.7-4.1) g/dL Albumin/Globulin Ratio (1.0-2.8) Urine Color Urine Appearance Urine pH (4.5-8.0) Ur Specific [place] (1.000-1.035) Urine Protein (Negative) Urine Glucose (UA) (Negative) g/dL Urine Ketones (NEGATIVE) Urine Occult Blood (Negative) Urine Nitrate (Negative) Urine Bilirubin (NEGATIVE) Urine Urobilinogen (0.2) E.U./dL Ur Leukocyte Esterase (NEGATIVE) Urine RBC (0-5/HPF) Urine WBC (0-5/HPF) Urine Bacteria (None) Ur Culture Indicated? SARS-CoV-2 (PCR) Negative (Negative) 01/06/22 01/06/22 01/06/22 Range/Units 03:51 03:57 12:10 WBC (4.5-11.0) X10^3/uL RBC (4.5-5.9) X10^6/uL Hgb (13.5-17.5) g/dL Hct (41-53) % MCV (80-100) fL MCH (26-34) PG MCHC (30-36) % RDW (11.6-14.8) % Plt Count (150-400) X10^3/uL Neut % (Auto) (50-75) % Lymph % (Auto) (25-40) % [place] % (Auto) (3-14) % Eos % (Auto) (2-4) % Baso % (Auto) (0-2) % Neut # (Auto) (5151-3153) /uL Lymph # (Auto) (9984-7147) /uL [place] # (Auto) (0-900) /uL Eos # (Auto) (0-450) /uL Baso # (Auto) (0-100) /uL Sodium (137-145) mmol/L Potassium (3.4-5.1) mmol/L Chloride (98-107) mmol/L Carbon Dioxide (22-32) mmol/L BUN (9-20) mg/dL Creatinine (0.66-1.25) mg/dL Estimated GFR (>60) mL/min BUN/Creatinine Ratio (6-22) Glucose (80-110) mg/dL Calcium (8.4-10.2) mg/dL Total Bilirubin (0.2-1.3) mg/dL AST (17-59) IU/L ALT (<50) IU/L Alkaline Phosphatase (38-126) U/L Total Creatine Kinase (55-170) U/L CK-MB (CK-2) CK-MB (CK-2) Rel Index Troponin I 0.069 H 0.067 H (0.01-0.034) ng/mL NT-Pro-B Natriuret Pep 04571 H (<125) pg/mL Total Protein (6.3-8.2) g/dL Albumin (3.5-5.0) g/dL Globulin (1.7-4.1) g/dL Albumin/Globulin Ratio (1.0-2.8) Urine Color Urine Appearance Urine pH (4.5-8.0) Ur Specific [place] (1.000-1.035) Urine Protein (Negative) Urine Glucose (UA) (Negative) g/dL Urine Ketones (NEGATIVE) Urine Occult Blood (Negative) Urine Nitrate (Negative) Urine Bilirubin (NEGATIVE) Urine Urobilinogen (0.2) E.U./dL Ur Leukocyte Esterase (NEGATIVE) Urine RBC (0-5/HPF) Urine WBC (0-5/HPF) Urine Bacteria (None) Ur Culture Indicated? SARS-CoV-2 (PCR) (Negative) 01/06/22 01/07/22 01/07/22 Range/Units 19:11 10:10 10:10 WBC 7.2 (4.5-11.0) X10^3/uL RBC 3.33 L (4.5-5.9) X10^6/uL Hgb 10.3 L (13.5-17.5) g/dL Hct 30.9 L (41-53) % MCV 92.8 (80-100) fL MCH 31.0 (26-34) PG MCHC 33.4 (30-36) % RDW 16.2 H (11.6-14.8) % Plt Count 262 (150-400) X10^3/uL Neut % (Auto) 73.2 (50-75) % Lymph % (Auto) 9.3 L (25-40) % [place] % (Auto) 10.5 (3-14) % Eos % (Auto) 5.3 H (2-4) % Baso % (Auto) 1.7 (0-2) % Neut # (Auto) 5300 (9141-7380) /uL Lymph # (Auto) 700 L (4447-0814) /uL [place] # (Auto) 800 (0-900) /uL Eos # (Auto) 400 (0-450) /uL Baso # (Auto) 100 (0-100) /uL Sodium 136 L (137-145) mmol/L Potassium 5.2 H D (3.4-5.1) mmol/L Chloride 95 L (98-107) mmol/L Carbon Dioxide 31 (22-32) mmol/L BUN 52 H (9-20) mg/dL Creatinine 4.13 H (0.66-1.25) mg/dL Estimated GFR 15 L (>60) mL/min BUN/Creatinine Ratio 12.6 (6-22) Glucose 125 H (80-110) mg/dL Calcium 9.3 (8.4-10.2) mg/dL Total Bilirubin 0.9 (0.2-1.3) mg/dL AST 26 (17-59) IU/L ALT 14 (<50) IU/L Alkaline Phosphatase 108 (38-126) U/L Total Creatine Kinase (55-170) U/L CK-MB (CK-2) CK-MB (CK-2) Rel Index Troponin I (0.01-0.034) ng/mL NT-Pro-B Natriuret Pep (<125) pg/mL Total Protein 6.9 (6.3-8.2) g/dL Albumin 4.2 (3.5-5.0) g/dL Globulin 2.7 (1.7-4.1) g/dL Albumin/Globulin Ratio 1.6 (1.0-2.8) Urine Color Yellow Urine Appearance Clear Urine pH 8.0 (4.5-8.0) Ur Specific [place] 1.010 (1.000-1.035) Urine Protein 3+ H (Negative) Urine Glucose (UA) 1+ H (Negative) g/dL Urine Ketones Negative (NEGATIVE) Urine Occult Blood 1+ H (Negative) Urine Nitrate Positive H (Negative) Urine Bilirubin Negative (NEGATIVE) Urine Urobilinogen 0.2 (0.2) E.U./dL Ur Leukocyte Esterase Trace H (NEGATIVE) Urine RBC 0-1/hpf (0-5/HPF) Urine WBC 5-10/hpf H (0-5/HPF) Urine Bacteria Many (>30) H (None) Ur Culture Indicated? Specimen cultured SARS-CoV-2 (PCR) (Negative) Point of Care Testing Glucose POC 258 Imaging Data MR stroke: Radiologist's Impression: Mahsa Carvalho??69??F??02/24/1952 ? Allergy/Adv: lisinopril Close Chest X-Ray (Signed) Danny Montelongo - 01/06/22 Telemetry Strips 12/26/21 Telemetry Strips 12/26/21 Mammogram Result 12/04/21 Chest X-Ray (Signed) Josiah Francois - 11/18/21 Mammogram Result 10/10/20 DI Result 10/10/20 Mammogram, Additional Views (Signed) Parrish Shaw - 09/30/20 Mammogram Screening (Signed) Kt Bernardo - 09/20/20 Toe X-Ray (Signed) Angelo Rivas - 09/15/20 Telemetry Strips 07/26/[address] (Signed) Jese Benitez - 01/18/20 Pelvis Ultrasound (Signed) Call,Denis - 01/03/20 Abdomen Ultrasound (Signed) Call,Denis - 01/03/20 Abdomen/Pelvis CT (Signed) Migel Salazar - 01/03/20 Knee X-Ray (Signed) Call,Denis - 12/07/19 Mammogram Screening (Signed) Parrish Shaw - 09/11/19 Vascular Ultrasound (Signed) Bethany Martin - 01/05/19 Knee X-Ray (Signed) Angelo Rivas - 01/05/19 EKG Rpt. 11/11/18 Finger X-Ray (Signed) Giovana Marin - 11/11/18 Knee MRI (Signed) Jim Olvera - 10/28/18 Finger X-Ray (Signed) Andrew Weinberg - 10/01/18 Mammogram Screening (Signed) Andrew Weinberg - 07/07/18 Knee X-Ray (Signed) Lobo Briceno - 04/22/18 Launch?[address] [address] XRay Report Signed Patient: Mahsa Carvalho MR#: [id number] : 02/24/1952 Acct:[id number] Age/Sex: 69 / F Date of Service: 01/06/22 Loc: Accession Number: [id number] ?? Procedure: XR chest 1V Ordering Provider: Lesly Maxwell D.O. PROCEDURE:? XR CHEST 1V ? INDICATIONS:? cough x 10 days. ? TECHNIQUE:? One view of the chest was acquired.? ? COMPARISON:? [facility], CR, XR CHEST 2V, 11/18/2021, 10:46. ? FINDINGS:? ? Surgical changes and devices:? None.? ? Lungs and pleura:? Lungs are clear.? No pleural effusions or pneumothorax.? ? Mediastinum:? Mediastinal contours appear normal.? Heart size is normal.? ? Bones and chest wall:? No suspicious bony lesions.? Overlying soft tissues appear unremarkable.? ? IMPRESSION:? No acute cardiopulmonary abnormality. ? ? ? Dictated by: Danny Montelongo M.D. on 01/06/2022 at 8:42 ? ? Approved by: Danny Montelongo M.D. on 01/06/2022 at 8:42?? MDM Narrative Medical decision making narrative: 66-year-old gentleman with end-stage kidney disease on dialysis, congestive heart failure, hypertension, hyperlipidemia presents after a syncopal episode today. Did not seem to be vasovagal, stroke related, hypo or hypo tension related and no signs of infection. Most likely etiology is cardiac syncope at this time. Workup does not suggest acute coronary syndrome, intracranial bleed or obvious stroke findings. On further questioning patient had a similar episode with a 15 minute loss of consciousness on December 31 with no workup at that time. Given to significant syncopal episodes within the last 6 days I believe admission for cardiac syncope workup is warranted. He will need a facility that is capable of dialysis. He is due for routine dialysis later today, there is no immediate urgency with potassium levels at 3.9, BUN at 37 and creatinine at 3.4 with no obvious fluid overload. He states that previously with admissions he has typically gone to [facility] for care. Will begin trying there and will expand bed search as needed. Chest x-ray indicates widened upper mediastinum. CT scan of the chest is ordered. [facility] 01/06/22 0740: Patient seen and independently evaluated by myself. Patient was signed out to myself by Dr. Finn. Patient has end-stage kidney disease on dialysis he missed his dialysis at [facility] in [place] this morning at 5:30 a.m., hypertension dyslipidemia with 2 syncopal episodes in the past week reportedly the one 6 days ago had a 15 minute loss of consciousness with no workup. Today he was walking back from the bathroom when he had syncopal episode with no prodrome of symptoms. Patient labs do not show any acute clear cause he has not had any rhythm changes here in the department, CT scan of the chest was ordered as there was concern for widened upper mediastinum no obvious sign of aneurysm. Does have a small right pleural effusion which could be edema versus atypical infiltrate/pneumonia he has not had any infectious symptoms recently making fluid more likely especially with his dialysis history. Patient's labs show an indeterminate troponin x2 which is not rapidly rising. Patient describes a significant injury to his head 6 days ago and shows encephalomalacia but no signs of bleed. He does note he is had multiple falls in October and noticed no clear lateralizing weakness but states he has been told he is had TIAs in the past. With discussion with physician feels appropriate to keep patient for cardiac syncope workup although we do not have dialysis available here and are searching for placement. MR stroke was ordered to evaluate as well based on his multiple falls in October history of TIAs and risk factors. This shows a remote small left cerebellar infarct but no other acute changes and less than 30% stenosis left proximal ICA and none on the right ICA. Otherwise normal brain MR angiogram. Patient was asymptomatic through the rest of the day his amlodipine was held for potential hypotension. Care was signed out to Dr. Velez overnight while awaiting possible placement patient had minimum needs observation for rhythm overnight. If negative and able to obtain an echo tomorrow patient may be able to follow-up outpatient if he is not having significantly worsening symptoms. 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 Harper out of [place]. Dr Velez: overnight 01/06-01/07. Received turned over. Reviewed patient's history and physical under this point. Patient did have episode last night of hypoglycemia. He was given something to drink however he became persistently hypoglycemic. Not entirely asymptomatic from it but was getting somewhat lightheaded. He was started on D10. His sugars have now been greater than 100. Care turned over to Dr. Maxwell at change of shift to follow-up and continue with this position. Dr. Maxwell 01/07/22: Patient signed back out to myself. He had hypoglycemia overnight he states he ate a little something at dinner but did have his normal insulin dose although was a one-to-one conversion from his U 500 although this was clarified with pharmacy prior to being given and was given based on the recommendations. He was in the 70s nothing is documented lower than this but was lightheaded. D10 was turned often he has not had any drops this morning he did eat breakfast. Held his short-acting insulin this morning. Patient feels like he is full fluid but not having increasing drops in O2. Labs are being repeated. Echo is being performed currently. I spoke with Dr. Stinson in from Cardiology he does recommend echo we can obtain ZIO patch if unable to obtain today he can patient placed on ZIO patch tomorrow in the office and took patient's information and would recommend discharge home for outpatient dialysis if patient is stable enough. Discussed with patient about this plan he feels quite comfortable with this he has missed his Saturday dialysis twice before and was able to tolerate. States he is had issues with orthostatic hypotension in the past as well which he did not share yesterday. Awaiting labs and echo report. Also plan to contact his nephrology team to see if they can move his dialysis up to Saturday if discharged home today. Dr. Fatima from nephrology recommended Kayexalate 45 g. They can get patient likely tomorrow during the daytime if patient is discharged home. We did review his labs today. ECHO does show new changes with decreased EF according to Dr. Mckinley who read his echo today. Patient sees cardiology in [place] and familiar with patients history and plan to consult with them. Patient signed out to Dr. Velez. while awaiting callback from patient's cardiology service in [place]. <Jai Velez, DO - Last Filed: 01/07/22 19:15> Lab Data Labs: Lab Results 01/06/22 01/06/22 01/06/22 Range/Units 00:00 00:00 03:30 WBC 7.6 (4.5-11.0) X10^3/uL RBC 3.30 L (4.5-5.9) X10^6/uL Hgb 10.2 L (13.5-17.5) g/dL Hct 30.8 L (41-53) % MCV 93.4 (80-100) fL MCH 31.0 (26-34) PG MCHC 33.2 (30-36) % RDW 16.1 H (11.6-14.8) % Plt Count 260 (150-400) X10^3/uL Neut % (Auto) 75.0 (50-75) % Lymph % (Auto) 9.2 L (25-40) % [place] % (Auto) 10.0 (3-14) % Eos % (Auto) 4.6 H (2-4) % Baso % (Auto) 1.2 (0-2) % Neut # (Auto) 5700 (1824-8606) /uL Lymph # (Auto) 700 L (7499-1994) /uL [place] # (Auto) 800 (0-900) /uL Eos # (Auto) 300 (0-450) /uL Baso # (Auto) 100 (0-100) /uL Sodium 139 (137-145) mmol/L Potassium 3.9 (3.4-5.1) mmol/L Chloride 96 L (98-107) mmol/L Carbon Dioxide 32 (22-32) mmol/L BUN 37 H (9-20) mg/dL Creatinine 3.40 H (0.66-1.25) mg/dL Estimated GFR 19 L (>60) mL/min BUN/Creatinine Ratio 10.9 (6-22) Glucose 117 H (80-110) mg/dL Calcium 9.0 (8.4-10.2) mg/dL Total Bilirubin (0.2-1.3) mg/dL AST (17-59) IU/L ALT (<50) IU/L Alkaline Phosphatase (38-126) U/L Total Creatine Kinase 88 (55-170) U/L CK-MB (CK-2) TNP CK-MB (CK-2) Rel Index TNP Troponin I 0.061 H (0.01-0.034) ng/mL NT-Pro-B Natriuret Pep (<125) pg/mL Total Protein (6.3-8.2) g/dL Albumin (3.5-5.0) g/dL Globulin (1.7-4.1) g/dL Albumin/Globulin Ratio (1.0-2.8) Urine Color Urine Appearance Urine pH (4.5-8.0) Ur Specific [place] (1.000-1.035) Urine Protein (Negative) Urine Glucose (UA) (Negative) g/dL Urine Ketones (NEGATIVE) Urine Occult Blood (Negative) Urine Nitrate (Negative) Urine Bilirubin (NEGATIVE) Urine Urobilinogen (0.2) E.U./dL Ur Leukocyte Esterase (NEGATIVE) Urine RBC (0-5/HPF) Urine WBC (0-5/HPF) Urine Bacteria (None) Ur Culture Indicated? SARS-CoV-2 (PCR) Negative (Negative) 01/06/22 01/06/22 01/06/22 Range/Units 03:51 03:57 12:10 WBC (4.5-11.0) X10^3/uL RBC (4.5-5.9) X10^6/uL Hgb (13.5-17.5) g/dL Hct (41-53) % MCV (80-100) fL MCH (26-34) PG MCHC (30-36) % RDW (11.6-14.8) % Plt Count (150-400) X10^3/uL Neut % (Auto) (50-75) % Lymph % (Auto) (25-40) % [place] % (Auto) (3-14) % Eos % (Auto) (2-4) % Baso % (Auto) (0-2) % Neut # (Auto) (3345-5191) /uL Lymph # (Auto) (8140-7404) /uL [place] # (Auto) (0-900) /uL Eos # (Auto) (0-450) /uL Baso # (Auto) (0-100) /uL Sodium (137-145) mmol/L Potassium (3.4-5.1) mmol/L Chloride (98-107) mmol/L Carbon Dioxide (22-32) mmol/L BUN (9-20) mg/dL Creatinine (0.66-1.25) mg/dL Estimated GFR (>60) mL/min BUN/Creatinine Ratio (6-22) Glucose (80-110) mg/dL Calcium (8.4-10.2) mg/dL Total Bilirubin (0.2-1.3) mg/dL AST (17-59) IU/L ALT (<50) IU/L Alkaline Phosphatase (38-126) U/L Total Creatine Kinase (55-170) U/L CK-MB (CK-2) CK-MB (CK-2) Rel Index Troponin I 0.069 H 0.067 H (0.01-0.034) ng/mL NT-Pro-B Natriuret Pep 28237 H (<125) pg/mL Total Protein (6.3-8.2) g/dL Albumin (3.5-5.0) g/dL Globulin (1.7-4.1) g/dL Albumin/Globulin Ratio (1.0-2.8) Urine Color Urine Appearance Urine pH (4.5-8.0) Ur Specific [place] (1.000-1.035) Urine Protein (Negative) Urine Glucose (UA) (Negative) g/dL Urine Ketones (NEGATIVE) Urine Occult Blood (Negative) Urine Nitrate (Negative) Urine Bilirubin (NEGATIVE) Urine Urobilinogen (0.2) E.U./dL Ur Leukocyte Esterase (NEGATIVE) Urine RBC (0-5/HPF) Urine WBC (0-5/HPF) Urine Bacteria (None) Ur Culture Indicated? SARS-CoV-2 (PCR) (Negative) 01/06/22 01/07/22 01/07/22 Range/Units 19:11 10:10 10:10 WBC 7.2 (4.5-11.0) X10^3/uL RBC 3.33 L (4.5-5.9) X10^6/uL Hgb 10.3 L (13.5-17.5) g/dL Hct 30.9 L (41-53) % MCV 92.8 (80-100) fL MCH 31.0 (26-34) PG MCHC 33.4 (30-36) % RDW 16.2 H (11.6-14.8) % Plt Count 262 (150-400) X10^3/uL Neut % (Auto) 73.2 (50-75) % Lymph % (Auto) 9.3 L (25-40) % [place] % (Auto) 10.5 (3-14) % Eos % (Auto) 5.3 H (2-4) % Baso % (Auto) 1.7 (0-2) % Neut # (Auto) 5300 (9067-0725) /uL Lymph # (Auto) 700 L (8898-5697) /uL [place] # (Auto) 800 (0-900) /uL Eos # (Auto) 400 (0-450) /uL Baso # (Auto) 100 (0-100) /uL Sodium 136 L (137-145) mmol/L Potassium 5.2 H D (3.4-5.1) mmol/L Chloride 95 L (98-107) mmol/L Carbon Dioxide 31 (22-32) mmol/L BUN 52 H (9-20) mg/dL Creatinine 4.13 H (0.66-1.25) mg/dL Estimated GFR 15 L (>60) mL/min BUN/Creatinine Ratio 12.6 (6-22) Glucose 125 H (80-110) mg/dL Calcium 9.3 (8.4-10.2) mg/dL Total Bilirubin 0.9 (0.2-1.3) mg/dL AST 26 (17-59) IU/L ALT 14 (<50) IU/L Alkaline Phosphatase 108 (38-126) U/L Total Creatine Kinase (55-170) U/L CK-MB (CK-2) CK-MB (CK-2) Rel Index Troponin I (0.01-0.034) ng/mL NT-Pro-B Natriuret Pep (<125) pg/mL Total Protein 6.9 (6.3-8.2) g/dL Albumin 4.2 (3.5-5.0) g/dL Globulin 2.7 (1.7-4.1) g/dL Albumin/Globulin Ratio 1.6 (1.0-2.8) Urine Color Yellow Urine Appearance Clear Urine pH 8.0 (4.5-8.0) Ur Specific [place] 1.010 (1.000-1.035) Urine Protein 3+ H (Negative) Urine Glucose (UA) 1+ H (Negative) g/dL Urine Ketones Negative (NEGATIVE) Urine Occult Blood 1+ H (Negative) Urine Nitrate Positive H (Negative) Urine Bilirubin Negative (NEGATIVE) Urine Urobilinogen 0.2 (0.2) E.U./dL Ur Leukocyte Esterase Trace H (NEGATIVE) Urine RBC 0-1/hpf (0-5/HPF) Urine WBC 5-10/hpf H (0-5/HPF) Urine Bacteria Many (>30) H (None) Ur Culture Indicated? Specimen cultured SARS-CoV-2 (PCR) (Negative) Point of Care Testing Glucose POC 258 MDM Narrative Medical decision making narrative: 66-year-old gentleman with end-stage kidney disease on dialysis, congestive heart failure, hypertension, hyperlipidemia presents after a syncopal episode today. Did not seem to be vasovagal, stroke related, hypo or hypo tension related and no signs of infection. Most likely etiology is cardiac syncope at this time. Workup does not suggest acute coronary syndrome, intracranial bleed or obvious stroke findings. On further questioning patient had a similar episode with a 15 minute loss of consciousness on December 31 with no workup at that time. Given to significant syncopal episodes within the last 6 days I believe admission for cardiac syncope workup is warranted. He will need a facility that is capable of dialysis. He is due for routine dialysis later today, there is no immediate urgency with potassium levels at 3.9, BUN at 37 and creatinine at 3.4 with no obvious fluid overload. He states that previously with admissions he has typically gone to [facility] for care. Will begin trying there and will expand bed search as needed. Chest x-ray indicates widened upper mediastinum. CT scan of the chest is ordered. [facility] 01/06/22 0740: Patient seen and independently evaluated by myself. Patient was signed out to myself by Dr. Finn. Patient has end-stage kidney disease on dialysis he missed his dialysis at [facility] in [place] this morning at 5:30 a.m., hypertension dyslipidemia with 2 syncopal episodes in the past week reportedly the one 6 days ago had a 15 minute loss of consciousness with no workup. Today he was walking back from the bathroom when he had syncopal episode with no prodrome of symptoms. Patient labs do not show any acute clear cause he has not had any rhythm changes here in the department, CT scan of the chest was ordered as there was concern for widened upper mediastinum no obvious sign of aneurysm. Does have a small right pleural effusion which could be edema versus atypical infiltrate/pneumonia he has not had any infectious symptoms recently making fluid more likely especially with his dialysis history. Patient's labs show an indeterminate troponin x2 which is not rapidly rising. Patient describes a significant injury to his head 6 days ago and shows encephalomalacia but no signs of bleed. He does note he is had multiple falls in October and noticed no clear lateralizing weakness but states he has been told he is had TIAs in the past. With discussion with physician feels appropriate to keep patient for cardiac syncope workup although we do not have dialysis available here and are searching for placement. MR stroke was ordered to evaluate as well based on his multiple falls in October history of TIAs and risk factors. 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 Harper out of [place]. Dr Velez: overnight 01/06-01/07. Received turned over. Reviewed patient's history and physical under this point. Patient did have episode last night of hypoglycemia. He was given something to drink however he became persistently hypoglycemic. Not entirely asymptomatic from it but was getting somewhat lightheaded. He was started on D10. His sugars have now been greater than 100. Care turned over to Dr. Maxwell at change of shift to follow-up and continue with this position. <Elliott Tran, DO - Last Filed: 01/10/22 13:16> Lab Data Labs: Lab Results 01/06/22 01/06/22 01/06/22 Range/Units 00:00 00:00 03:30 WBC 7.6 (4.5-11.0) X10^3/uL RBC 3.30 L (4.5-5.9) X10^6/uL Hgb 10.2 L (13.5-17.5) g/dL Hct 30.8 L (41-53) % MCV 93.4 (80-100) fL MCH 31.0 (26-34) PG MCHC 33.2 (30-36) % RDW 16.1 H (11.6-14.8) % Plt Count 260 (150-400) X10^3/uL Neut % (Auto) 75.0 (50-75) % Lymph % (Auto) 9.2 L (25-40) % [place] % (Auto) 10.0 (3-14) % Eos % (Auto) 4.6 H (2-4) % Baso % (Auto) 1.2 (0-2) % Neut # (Auto) 5700 (6936-7789) /uL Lymph # (Auto) 700 L (3569-3799) /uL [place] # (Auto) 800 (0-900) /uL Eos # (Auto) 300 (0-450) /uL Baso # (Auto) 100 (0-100) /uL Sodium 139 (137-145) mmol/L Potassium 3.9 (3.4-5.1) mmol/L Chloride 96 L (98-107) mmol/L Carbon Dioxide 32 (22-32) mmol/L BUN 37 H (9-20) mg/dL Creatinine 3.40 H (0.66-1.25) mg/dL Estimated GFR 19 L (>60) mL/min BUN/Creatinine Ratio 10.9 (6-22) Glucose 117 H (80-110) mg/dL Calcium 9.0 (8.4-10.2) mg/dL Total Bilirubin (0.2-1.3) mg/dL AST (17-59) IU/L ALT (<50) IU/L Alkaline Phosphatase (38-126) U/L Total Creatine Kinase 88 (55-170) U/L CK-MB (CK-2) TNP CK-MB (CK-2) Rel Index TNP Troponin I 0.061 H (0.01-0.034) ng/mL NT-Pro-B Natriuret Pep (<125) pg/mL Total Protein (6.3-8.2) g/dL Albumin (3.5-5.0) g/dL Globulin (1.7-4.1) g/dL Albumin/Globulin Ratio (1.0-2.8) Urine Color Urine Appearance Urine pH (4.5-8.0) Ur Specific [place] (1.000-1.035) Urine Protein (Negative) Urine Glucose (UA) (Negative) g/dL Urine Ketones (NEGATIVE) Urine Occult Blood (Negative) Urine Nitrate (Negative) Urine Bilirubin (NEGATIVE) Urine Urobilinogen (0.2) E.U./dL Ur Leukocyte Esterase (NEGATIVE) Urine RBC (0-5/HPF) Urine WBC (0-5/HPF) Urine Bacteria (None) Ur Culture Indicated? SARS-CoV-2 (PCR) Negative (Negative) 01/06/22 01/06/22 01/06/22 Range/Units 03:51 03:57 12:10 WBC (4.5-11.0) X10^3/uL RBC (4.5-5.9) X10^6/uL Hgb (13.5-17.5) g/dL Hct (41-53) % MCV (80-100) fL MCH (26-34) PG MCHC (30-36) % RDW (11.6-14.8) % Plt Count (150-400) X10^3/uL Neut % (Auto) (50-75) % Lymph % (Auto) (25-40) % [place] % (Auto) (3-14) % Eos % (Auto) (2-4) % Baso % (Auto) (0-2) % Neut # (Auto) (6243-6463) /uL Lymph # (Auto) (4880-9356) /uL [place] # (Auto) (0-900) /uL Eos # (Auto) (0-450) /uL Baso # (Auto) (0-100) /uL Sodium (137-145) mmol/L Potassium (3.4-5.1) mmol/L Chloride (98-107) mmol/L Carbon Dioxide (22-32) mmol/L BUN (9-20) mg/dL Creatinine (0.66-1.25) mg/dL Estimated GFR (>60) mL/min BUN/Creatinine Ratio (6-22) Glucose (80-110) mg/dL Calcium (8.4-10.2) mg/dL Total Bilirubin (0.2-1.3) mg/dL AST (17-59) IU/L ALT (<50) IU/L Alkaline Phosphatase (38-126) U/L Total Creatine Kinase (55-170) U/L CK-MB (CK-2) CK-MB (CK-2) Rel Index Troponin I 0.069 H 0.067 H (0.01-0.034) ng/mL NT-Pro-B Natriuret Pep 41128 H (<125) pg/mL Total Protein (6.3-8.2) g/dL Albumin (3.5-5.0) g/dL Globulin (1.7-4.1) g/dL Albumin/Globulin Ratio (1.0-2.8) Urine Color Urine Appearance Urine pH (4.5-8.0) Ur Specific [place] (1.000-1.035) Urine Protein (Negative) Urine Glucose (UA) (Negative) g/dL Urine Ketones (NEGATIVE) Urine Occult Blood (Negative) Urine Nitrate (Negative) Urine Bilirubin (NEGATIVE) Urine Urobilinogen (0.2) E.U./dL Ur Leukocyte Esterase (NEGATIVE) Urine RBC (0-5/HPF) Urine WBC (0-5/HPF) Urine Bacteria (None) Ur Culture Indicated? SARS-CoV-2 (PCR) (Negative) 01/06/22 01/07/22 01/07/22 Range/Units 19:11 10:10 10:10 WBC 7.2 (4.5-11.0) X10^3/uL RBC 3.33 L (4.5-5.9) X10^6/uL Hgb 10.3 L (13.5-17.5) g/dL Hct 30.9 L (41-53) % MCV 92.8 (80-100) fL MCH 31.0 (26-34) PG MCHC 33.4 (30-36) % RDW 16.2 H (11.6-14.8) % Plt Count 262 (150-400) X10^3/uL Neut % (Auto) 73.2 (50-75) % Lymph % (Auto) 9.3 L (25-40) % [place] % (Auto) 10.5 (3-14) % Eos % (Auto) 5.3 H (2-4) % Baso % (Auto) 1.7 (0-2) % Neut # (Auto) 5300 (5751-0094) /uL Lymph # (Auto) 700 L (8776-0945) /uL [place] # (Auto) 800 (0-900) /uL Eos # (Auto) 400 (0-450) /uL Baso # (Auto) 100 (0-100) /uL Sodium 136 L (137-145) mmol/L Potassium 5.2 H D (3.4-5.1) mmol/L Chloride 95 L (98-107) mmol/L Carbon Dioxide 31 (22-32) mmol/L BUN 52 H (9-20) mg/dL Creatinine 4.13 H (0.66-1.25) mg/dL Estimated GFR 15 L (>60) mL/min BUN/Creatinine Ratio 12.6 (6-22) Glucose 125 H (80-110) mg/dL Calcium 9.3 (8.4-10.2) mg/dL Total Bilirubin 0.9 (0.2-1.3) mg/dL AST 26 (17-59) IU/L ALT 14 (<50) IU/L Alkaline Phosphatase 108 (38-126) U/L Total Creatine Kinase (55-170) U/L CK-MB (CK-2) CK-MB (CK-2) Rel Index Troponin I (0.01-0.034) ng/mL NT-Pro-B Natriuret Pep (<125) pg/mL Total Protein 6.9 (6.3-8.2) g/dL Albumin 4.2 (3.5-5.0) g/dL Globulin 2.7 (1.7-4.1) g/dL Albumin/Globulin Ratio 1.6 (1.0-2.8) Urine Color Yellow Urine Appearance Clear Urine pH 8.0 (4.5-8.0) Ur Specific [place] 1.010 (1.000-1.035) Urine Protein 3+ H (Negative) Urine Glucose (UA) 1+ H (Negative) g/dL Urine Ketones Negative (NEGATIVE) Urine Occult Blood 1+ H (Negative) Urine Nitrate Positive H (Negative) Urine Bilirubin Negative (NEGATIVE) Urine Urobilinogen 0.2 (0.2) E.U./dL Ur Leukocyte Esterase Trace H (NEGATIVE) Urine RBC 0-1/hpf (0-5/HPF) Urine WBC 5-10/hpf H (0-5/HPF) Urine Bacteria Many (>30) H (None) Ur Culture Indicated? Specimen cultured SARS-CoV-2 (PCR) (Negative) Point of Care Testing Glucose POC 258 Discharge Plan Departure Patient Disposition: Home Clinical Impression: Chronic kidney disease with end stage renal failure on dialysis, Syncope Instructions: DI for Syncope in Adults (Fainting) Activity Restrictions/Additional Instructions: I recommend that you continue to take all of your medications do include your insulin at home like we directed. Before you give herself any insulin this evening be sure that your checking your blood sugars and decrease your insulin at home like we discussed. You should be receiving a call from your account planner's office at the beginning of the week for a follow-up sometime this week. If you have not heard from them by Saturday contact their office. Keep your scheduled dialysis appointment for Saturday. If you feel like you need extra treatment you can contact them tomorrow for this. Return to the emergency department for any new or worsening symptoms. Prescriptions: New cephalexin 500 mg capsule 500 mg PO BID Qty: 14 0RF No Action fluticasone propion-salmeterol [Advair Diskus] 250-50 mcg/dose blister with device 1 puff Inhalation BID amlodipine 10 mg tablet 10 mg PO DAILY gemfibrozil 600 mg tablet 600 mg PO DAILY azelastine 137 mcg (0.1 %) aerosol,spray 2 spray intranasal 2XD albuterol sulfate [ProAir HFA] 90 mcg/actuation HFA aerosol inhaler 1 puff Inhalation PRN PRN (Reason: Shortness Of Breath) loratadine 10 mg tablet 10 mg PO DAILY ezetimibe [Zetia] 10 mg tablet 10 mg PO DAILY Humulin R U-500 (Conc) Kwikpen 500 unit/mL (3 mL) insulin pen See Protocol SUBCUT ACHS Protocol: Age Greater than 75 Protocol Text: Age less than 75 years, to be administred with initial in subcutaneous dose Rx Instructions: sliding scale magnesium oxide 420 mg Tablet 420 mg PO BIDWMEAL Rx Instructions: after dialysis liothyronine 25 mcg Tablet 25 mcg PO DAILY tamsulosin 0.4 mg Capsule 0.4 mg PO DAILY montelukast 10 mg Tablet 10 mg PO DAILY PRN (Reason: Dry Skin) duloxetine 60 mg Capsule,Delayed Release(Dr/Ec) 60 mg PO BID Lantus U-100 Insulin 100 unit/mL Cartridge 10 unit SUBCUT DAILY cholecalciferol (vitamin D3) 25 mcg (1,000 unit) Tablet 25 mcg PO BID diclofenac sodium [Voltaren] 1 % Gel 4 g TOPICAL QID Rx Instructions: apply to single knee, ankle, foot; for foot includes sole/toes/top of foot Referrals: Vy Mcgee MD [Primary Care Provider] - Visit Report Forms: Patient Portal/API
--- NOTE | 2022-01-06 03:39 | DI.RAD.S_ITS ---
PROCEDURE: XR CHEST 1V INDICATIONS: cardiac syncope TECHNIQUE: One view of the chest was acquired. COMPARISON: [facility], CR, XR CHEST 1V, 01/16/2021, 13:39. FINDINGS: Surgical changes and devices: None. Lungs and pleura: Minor central pulmonary venous congestion. Mild hypoventilatory lung changes with crowding of the lung markings. Mild prominence of pulmonary markings. No defined a pleural effusion. Mediastinum: Widened upper mediastinum measuring up to 9 cm. Partially calcified aortic knob. Bones and chest wall: No suspicious bony lesions. Overlying soft tissues appear unremarkable. IMPRESSION: * Cardiomegaly with pulmonary congestion, probable low-grade interstitial edema favor congestive heart failure. * Widened upper mediastinum. This may be prominent mediastinal fat, mediastinal mass, or vascular shadows. Aneurysm considered. Follow-up CT chest advised. Comment: Final report is concordant with preliminary interpretation by [facility] Dictated by: Danny Montelongo M.D. on 01/06/2022 at 6:24 Approved by: Danny Montelongo M.D. on 01/06/2022 at 6:26
[2022-01-06] MEDS: ACETAMINOPHEN 325 MG TABLET 650 MG PO (03:41)
[2022-01-06 03:54] LABS: COVID19 -Nasal RAPID Negative (Negative)
[2022-01-06 04:28] LABS: Troponin I 0.069 ng/mL (0.01-0.034)
--- NOTE | 2022-01-06 05:04 | DI.CT.S_ITS ---
PROCEDURE: CT CHEST W CON INDICATIONS: syncope, widened upper mediastium TECHNIQUE: After the administration of intravenous contrast, 5 mm thick sections acquired from the pulmonary apices to the posterior costophrenic angles. 1 mm axial lung, 5 mm thick coronal and sagittal reformats and 7 mm axial MIP were acquired. For radiation dose reduction, the following was used: automated exposure control, adjustment of mA and/or kV according to patient size. COMPARISON: None. FINDINGS: Image quality: Excellent. Lungs and pleura: There is a small right pleural effusion. Airspace opacities at the posterior right lower lobe consistent with atelectasis or pneumonia. Scattered ground-glass opacities within the left lung. Mediastinum: Thoracic aorta is non aneurysmal with no dissection. Coronary arteries have atherosclerotic calcifications. The central pulmonary arteries are patent. Mediastinal lymph nodes are prominent but not enlarged. Bones and chest wall: No suspicious bony lesions. No vertebral body compression fractures. No axillary or supraclavicular adenopathy by size criteria. Thyroid gland is normal. Abdomen: Limited visualization of the upper abdomen shows no acute abnormality. Perihepatic ascites is seen. The liver has decreased density. IMPRESSION: 1. Small right pleural effusion and right lower lobe airspace opacities and scattered ground-glass densities within the left lung. This could represent edema or atypical infiltrate/pneumonia. Please correlate clinically. 2. Small amount of upper abdominal ascites with heterogenous diminished density of the liver likely hepatic steatosis. Comment: Final report is concordant with preliminary interpretation by [facility] Dictated by: Danny Montelongo M.D. on 01/06/2022 at 6:27 Approved by: Danny Montelongo M.D. on 01/06/2022 at 6:30
--- NOTE | 2022-01-06 05:22 | PC.NURSE ---
Pt daughter, Marlen, is point of contact and her number is: [phone]
--- NOTE | 2022-01-06 07:28 | DI.MRI.S_ITS ---
PROCEDURE: MR STROKE Pre- and post-contrast brain MRI, non-contrast brain MR angiogram, pre- and postcontrast neck MR angiogram INDICATIONS: syncope, multiple falls, weakness TECHNIQUE: Brain: Noncontrast axial T1 spin echo, axial T2 fast spin echo, sagittal and axial FLAIR, coronal T2 fast spin echo, axial gradient echo, axial diffusion and ADC through the brain. After the administration of contrast, axial 3D VIBE of the cranial vasculature and brain. Brain MRA: Non-contrast 3-D time of flight MR angiogram, with multiple jlvytvl-hpbltvvow-cvhlvutnam (MIP) reformats performed. Neck MRA: Axial and sagittal TruFISP through the neck. Coronal dynamic MR angiogram during administration of contrast in the arterial and venous phases, with 3-dimenstional fckjwkv-fxrlcoigf-zqlyjzcwca (MIP) reformats constructed from subtraction images. COMPARISON: None. FINDINGS: Image quality: Excellent. BRAIN: CSF spaces: Ventricles are normal in size and shape. Basal cisterns are patent. No extra-axial fluid collections. Brain: No intracranial bleeds or mass effects. Peterson-white matter interface is normal. Diffusion weighted images show no acute ischemic insults. Brainstem appears normal. Normal intravascular flow voids are present. No abnormal intracranial enhancement. There is a wedge-shaped area of encephalomalacia in the left cerebellar hemisphere. Skull and face: Calvarial marrow signal is normal. Orbits appear normal. Sinuses: Sinuses and mastoids are clear. BRAIN MR ANGIOGRAM: Anterior circulation: Intracranial internal carotid arteries are normal in size and enhancement. The flow within the paired anterior cerebral arteries is normal and symmetric. The flow within the middle cerebral arteries is normal and symmetric. The anterior communicating artery is seen. No stenoses, occlusions, or aneurysms. Posterior circulation: The visualized portions of the vertebral arteries demonstrate normal caliber, and join to form a normal appearing basilar artery. The flow within the posterior cerebral arteries is normal and symmetric. No stenoses, occlusions, or aneurysms. NECK MR ANGIOGRAM: Carotids: Great vessels demonstrate a conventional anatomy as they arise from the aortic arch. The origins of the common carotid arteries appear patent. The calibers and courses of both common carotid arteries are normal. The right bifurcation is patent with no significant stenosis. The left bifurcation has less than 30% stenosis at the proximal ICA. The internal carotid arteries demonstrate normal course and caliber. Posterior circulation: The origins of the vertebral arteries appear patent. More superior portions of both vertebral arteries demonstrate normal course and caliber, and join to form a normal appearing basilar artery. The right vertebral artery is dominant. Miscellaneous: Subclavian arteries appear patent. Pre-contrast images through the neck show no soft tissue abnormalities. IMPRESSION: BRAIN MRI: 1. No acute intracranial abnormality. No acute ischemia. 2. Remote small left cerebellar infarct. BRAIN MR ANGIOGRAM: Normal. No large vessel occlusion. NECK MR ANGIOGRAM: Less than 30% stenosis of the left proximal ICA. No significant stenosis of the right ICA. Dictated by: Danny Montelongo M.D. on 01/06/2022 at 10:09 Approved by: Danny Montelongo M.D. on 01/06/2022 at 10:19
[2022-01-06 11:17] LABS: NT-proBNP (BNP-Adult 18+) 51500 pg/mL (<125)
[2022-01-06 12:44] LABS: Troponin I 0.067 ng/mL (0.01-0.034)
[2022-01-06] MEDS: ALBUTEROL/IPRATROPIUM 3 ML AMPUL INH (14:06)
[2022-01-06] MEDS: INSULIN REGULAR 100 UNIT/ML 3 ML VIAL SUBCUT (17:30)
[2022-01-06] MEDS: INSULIN GLARGINE 100 UNIT/ML 3ML PEN 10 UNIT SUBCUT (18:44)
[2022-01-06 19:18] LABS: Appearance Urine UA CLEAR; Bilirubin Urine UA NEGATIVE (NEGATIVE); Color Urine UA YELLOW; Glucose Urine UA 1+ g/dL (Negative); Ketones Urine UA NEGATIVE (NEGATIVE); Leukocyte Esterase Urine UA TRACE (NEGATIVE); Nitrite Urine UA POSITIVE (Negative); Occult Blood Urine UA 1+ (Negative); Protein Urine UA 3+ (Negative); Urobilinogen Urine UA 0.2 E.U./dL (0.2)
[2022-01-06 19:35] LABS: Bacteria Urine Many (>30); Culture Indicated Urine Specimen Cultured; RBC Urine 0-1/HPF (0-5/HPF); WBC Urine 5-10/HPF (0-5/HPF)
[2022-01-06] MEDS: DEXTROSE 10 % IN WATER 250 ML 999 ML IV (21:31)
[2022-01-06] MEDS: DEXTROSE 10 % IN WATER 1,000 ML 100 ML IV (23:12)
[2022-01-07] VITALS (9 sets, daily range): BP systolic 155–182; BP diastolic 74–86; PULSE 68–78; RESP 16–18; TEMP 36.7; O2SAT 93–100
--- NOTE | 2022-01-07 01:35 | PC.NURSE ---
pt given dose of insulin for lunch prior to dinner. pt then checked his glucose monitor 2 hours later and was concerned that his glucose was at 124. compared to our glucometer reading. reading taken my nurse cafeteria assistant was 78. pt synced his device to our reading. pt given applejuice and MD notified of reading. pt drank 3 applejuices, had pudding, tuna sandwich and string cheese. glucose continued to drop per pt device to 45. MD order for dextrose given. pt glucose level is now leveled out on glucose drip. sitting around 90. pt is worried now that this is too low or that he is going to go high during the night.
--- NOTE | 2022-01-07 03:41 | PC.NURSE ---
Pt BG 74. Pt infusion of D10 increased to 125mL/hr and given snacks and juice.
[2022-01-07] MEDS: ACETAMINOPHEN 325 MG TABLET 650 MG PO (04:42)
[2022-01-07] MEDS: LIOTHYRONINE 5 MCG TABLET 25 MCG PO (06:54)
[2022-01-07] MEDS: cefTRIAXone 2,000 MG in SODIUM CHLORIDE 0.9% 100 ML 200 MG IV (08:25)
[2022-01-07] MEDS: TAMSULOSIN 0.4 MG CAPSULE PO (08:36)
--- NOTE | 2022-01-07 09:57 | DI.ECHO.S_ITS ---
Interpretation Summary The patient was in normal sinus rhythm during the exam. Hypertensive during exam The left ventricle is normal in size. There is moderate concentric left ventricular hypertrophy. Left ventricular systolic function is moderately reduced. The ejection fraction is estimated to be 35-40%. There is moderate global hypokinesis of the left ventricle. Diastolic parameters suggest a pseudonormalization pattern, consistent with probable elevated filling pressures. The right ventricle is moderately dilated. Right ventricular systolic function is moderately reduced. The left atrium is mildly dilated. The right atrium is moderately dilated. There is mild mitral regurgitation. There is mild aortic stenosis. There is moderate to severe tricuspid regurgitation. The right ventricular systolic pressure is estimated to be at least 77 mmHg based on an estimated right atrial pressure of 15 mm Hg. The IVC is dilated (diameter is greater than 2.1 cm) and it collapses less than 50% with a sniff. This suggests a high right atrial pressure of 15 mm Hg. Intraventricular septal flattening in systole/diastole suggestive of pressure and volume overload. Prior study not available for comparison. Procedure: A two-dimensional transthoracic echocardiogram with color flow and Doppler was performed. The study quality was technically adequate. Comparison is made with the echocardiogram of 07/29/2013. The patient was in normal sinus rhythm during the exam. Hypertensive during exam. Left Ventricle: The left ventricle is normal in size. There is moderate concentric left ventricular hypertrophy. Intraventricular septal flattening in systole/diastole suggestive of pressure and volume overload. Left ventricular systolic function is moderately reduced. The ejection fraction is estimated to be 35-40%. There is moderate global hypokinesis of the left ventricle. Diastolic parameters suggest a pseudonormalization pattern, consistent with probable elevated filling pressures. Right Ventricle: The right ventricle is moderately dilated. Right ventricular systolic function is moderately reduced. Atria: The left atrium is mildly dilated. The right atrium is moderately dilated. The interatrial septum grossly appears intact with no obvious evidence for an atrial septal defect. Mitral Valve: There is moderate mitral annular calcification. There is mild mitral regurgitation. Aortic Valve: The aortic valve is mildly calcified. There is mild aortic stenosis. The aortic valve mean gradient is 11 mmHg. There is trace aortic regurgitation. Tricuspid Valve: The tricuspid valve leaflets are thickened and/or calcified, but open well. There is moderate to severe tricuspid regurgitation. The right ventricular systolic pressure is estimated to be at least 77 mmHg based on an estimated right atrial pressure of 15 mm Hg. Pulmonic Valve: The pulmonic valve is normal in structure and function. There is trace pulmonic regurgitation. Great Vessels: The aortic root is normal size. The dimensions of the ascending aorta are normal. The IVC is dilated (diameter is greater than 2.1 cm) and it collapses less than 50% with a sniff. This suggests a high right atrial pressure of 15 mm Hg. Pericardium/ Pleura There is no pericardial effusion. There is no pleural effusion. MMode/2D Measurements & Calculations LVIDd: 5.5 cm LVOT diam: 1.9 cm LVIDs: 4.3 cm Ao root diam: 3.0 cm FS: 20.9 % asc Aorta Diam: 3.4 cm IVSd: 1.5 cm LVPWd: 1.2 cm LV hsieh. diameter/BSA (cm/m^2): 2.5 LV sys. diameter/BSA (cm/m^2): 1.9 LA A2 area: 24.6 cm2 RA long axis: 5.5 cm LA A4 area: 28.1 cm2 RA area: 21.9 cm2 LA length (vol): 6.7 cm RA vol: 74.0 ml LA vol: 87.7 ml RA : 33.3 ml/m2 LA vol index: 39.4 ml/m2 IVC diam: 2.6 cm TAPSE: 1.6 cm Doppler Measurements & Calculations Ao V2 max: 230.0 cm/sec LVOT Max Vincenzo: 95.8 cm/sec Ao V2 mean: 159.0 cm/sec LV V1 max P.7 mmHg Ao max P.2 mmHg LV V1 VTI: 23.3 cm Ao mean P.3 mmHg DALTON(I,D): 1.3 cm2 Ao V2 VTI: 51.1 cm DALTON(V,D): 1.2 cm2 sev ratio: 0.45 DALTON indexed to BSA (cm^2/m^2): 0.57 MV E max vincenzo: 143.9 cm/sec TR max vincenzo: 394.9 cm/sec MV A max vincenzo: 85.6 cm/sec TR max P.4 mmHg MV E/A: 1.7 Med Peak E' Vincenzo: 3.4 cm/sec E/E' med: 42.5 Lat Peak E' Vincenzo: 4.7 cm/sec E/E' lat: 30.8 E/e' average: 36.7 MV dec time: 0.19 sec SV(LVOT): 64.6 ml Reading Physician:PM
[2022-01-07 10:59] LABS: Alanine Aminotransferase 14 IU/L (<50); Albumin 4.2 g/dL (3.5-5.0); Albumin Globulin Ratio 1.6 (1.0-2.8); Alkaline Phosphatase 108 U/L (38-126); Aspartate Aminotransferase 26 IU/L (17-59); BUN Creatinine Ratio 12.6 (6-22); Bilirubin Total 0.9 mg/dL (0.2-1.3); Blood Urea Nitrogen 52 mg/dL (9-20); Calcium 9.3 mg/dL (8.4-10.2); Carbon Dioxide 31 mmol/L (22-32); Chloride 95 mmol/L (98-107); Estimated Glomerular Filt Rate 15 mL/min (>60); Globulin 2.7 g/dL (1.7-4.1); Glucose 125 mg/dL (80-110); HEMOLYSIS < 15 (0-50); Potassium 5.2 mmol/L (3.4-5.1); Sodium 136 mmol/L (137-145); Total Protein 6.9 g/dL (6.3-8.2)
[2022-01-07 11:10] LABS: Add Manual Diff / Slide Review NO; Basophils Absolute Auto 100 /uL (0-100); Basophils Percent Auto 1.7 % (0-2); Eosinophils Absolute Auto 400 /uL (0-450); Eosinophils Percent Auto 5.3 % (2-4); Hematocrit 30.9 % (41-53); Hemoglobin 10.3 g/dL (13.5-17.5); Lymphocytes Absolute Auto 700 /uL (1100-4500); Lymphocytes Percent Auto 9.3 % (25-40); Mean Corpuscular HGB Conc 33.4 % (30-36); Mean Corpuscular Volume 92.8 fL (80-100); Monocytes Absolute Auto 800 /uL (0-900); Monocytes Percent Auto 10.5 % (3-14); Neutrophils Absolute Auto 5300 /uL (1500-7000); Neutrophils Percent Auto 73.2 % (50-75); Platelet Count 262 X10^3/uL (150-400); Red Blood Cell Count 3.33 X10^6/uL (4.5-5.9); Red Cell Distribution Width 16.2 % (11.6-14.8); White Blood Cell Count 7.2 X10^3/uL (4.5-11.0)
[2022-01-07] MEDS: SODIUM POLYSTYRENE SULFON/SORB 15 GM/60 ML CUP 45 GM PO (14:00)
[2022-01-07] MEDS: AMLODIPINE 5 MG TABLET 10 MG PO (14:00)
== END 2022-01-07 20:45 | disposition home or self-care (01) ==
PROVIDERS: Emergency Medicine; Emergency Provider Emergency Medicine; PCP Internal Medicine
DX: N18.6 End stage renal disease (principal); Z99.2 Dependence on renal dialysis; R55 Syncope and collapse; E16.2 Hypoglycemia, unspecified; I10 Essential (primary) hypertension; E78.5 Hyperlipidemia, unspecified; Z20.822 Contact with and (suspected) exposure to COVID-19
CPT/HCPCS: 36415; 70450; 70548; 70553; 71045; 71260; 80048; 80053; 81001; 82550; 82962; 83880; 84484; 85025; 87077; 87086; 87186; 87635; 93005; 93010; 96361; 96365; 96375; 99285; C9803; C8929; J0696; J2405; Q9957; Q9967

== ENCOUNTER → 2022-05-06 14:26 | Outpatient (CLI) | payer MEDICARE, OTHER, SELFPAY ==
--- NOTE | 2022-05-06 14:31 | DI.RAD.S_ITS ---
PROCEDURE: XR ACUTE ABDOMEN SERIES INDICATIONS: GI ISSUES TECHNIQUE: One view chest and two views of the abdomen were acquired. COMPARISON: None. FINDINGS: Surgical changes and devices: Surgical clips in the right upper quadrant Chest: Lungs are clear. Heart size is normal. No pleural effusions. No pneumoperitoneum. Abdomen: Large amount of fecal debris throughout the colon. Nonobstructive bowel gas pattern Bones: No suspicious bony lesions. IMPRESSION: Moderate fecal debris throughout the colon Approved by: Josiah Francois M.D. on 05/06/2022 at 15:18
== END ==
PROVIDERS: PCP Internal Medicine; Referring Provider Internal Medicine Gastroenterology; Visit Provider Internal Medicine Gastroenterology
DX: R19.7 Diarrhea, unspecified (principal); R15.0 Incomplete defecation
CPT/HCPCS: 74022

== ENCOUNTER 2022-05-21 16:52 | Emergency (ER) | payer MEDICARE, OTHER, SELFPAY ==
[2022-05-21] VITALS (89 sets, daily range): BP systolic 130–201; BP diastolic 64–105; PULSE 25–100; RESP 13–33; O2SAT 88–100; BMI 31.3
--- NOTE | 2022-05-21 17:22 | DI.RAD.S_ITS ---
PROCEDURE: XR SHOULDER RT MIN 2V INDICATIONS: shoulder pain TECHNIQUE: 3 views of the shoulder were acquired. COMPARISON: [facility], CR, XR SHOULDER LT MIN 2V, 05/20/2021, 18:19. FINDINGS: Bones: There is a displaced fracture of the anatomic neck of the proximal humerus. Soft tissues: No suspicious soft tissue calcifications. There is a stent in a subclavian vessel. IMPRESSION: Displaced fracture of the anatomic neck of the proximal humerus. Dictated by: Danny Montelongo M.D. on 05/21/2022 at 19:26 Approved by: Danny Montelongo M.D. on 05/21/2022 at 19:27
--- NOTE | 2022-05-21 17:22 | DI.RAD.S_ITS ---
PROCEDURE: XR PELVIS 1-2V INDICATIONS: fall, left shoulder pain, bradycardia TECHNIQUE: 1 view(s) of the pelvis acquired. COMPARISON: None. FINDINGS: Bones: No fractures or dislocations. No suspicious bony lesions. Joint space narrowing and degenerative changes. Soft tissues: Visualized bowel gas pattern is normal. No suspicious soft tissue calcifications. Vasculature has atherosclerotic calcifications. IMPRESSION: Joint space narrowing and degenerative changes of the hips. No acute abnormality. Dictated by: Danny Montelongo M.D. on 05/21/2022 at 19:27 Approved by: Danny Montelongo M.D. on 05/21/2022 at 19:29
--- NOTE | 2022-05-21 17:22 | DI.RAD.S_ITS ---
PROCEDURE: XR CHEST 1V INDICATIONS: fall, left shoulder pain, bradycardia TECHNIQUE: One view of the chest was acquired. COMPARISON: [facility], CR, XR CHEST 1V, 01/06/2022, 3:41. FINDINGS: Surgical changes and devices: None. Lungs and pleura: Increased bilateral airspace opacities consistent with pulmonary edema. Mediastinum: Mediastinal contours appear normal. Heart size is enlarged. Bones and chest wall: No suspicious bony lesions. Overlying soft tissues appear unremarkable. IMPRESSION: Cardiomegaly and increased bilateral perihilar airspace opacities consistent with pulmonary edema. Dictated by: Danny Montelongo M.D. on 05/21/2022 at 19:29 Approved by: Danny Montelongo M.D. on 05/21/2022 at 19:30
--- NOTE | 2022-05-21 17:23 | DI.CT.S_ITS ---
PROCEDURE: CT HEAD/BRAIN WO CON INDICATIONS: Trauma TECHNIQUE: Noncontrast 4.5 mm thick angled axial sections acquired from the foramen magnum to the vertex, with coronal and sagittal reformats. For radiation dose reduction, the following was used: automated exposure control, adjustment of mA and/or kV according to patient size. COMPARISON: [facility], MR, MR STROKE, 01/06/2022, 9:17. [facility], CT, CT CERVICAL SPINE WO CON, 05/21/2022, 17:27. [facility], CT, CT HEAD/BRAIN WO CON, 01/06/2022, 0:38. FINDINGS: Image quality: This examination is limited by involuntary motion artifact. Images are repeated, with some improvement. CSF spaces: Basal cisterns are patent. No extra-axial fluid collections. The ventricles are symmetric in size and shape. Brain: No intracranial bleeds or masses. There is cerebral volume loss for age, with resultant ventricular and sulcal prominence. There are periventricular and deep white matter chronic small vessel ischemic changes. 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 There is intracranial internal carotid artery atherosclerosis. Skull and face: Calvarium and visualized facial bones appear intact, without suspicious lesions. Sinuses: Visualized sinuses and mastoids are clear. IMPRESSION: No acute intracranial hemorrhage is seen. No acute intracranial process is seen. Stable prior left cerebellar infarction. Dictated by: Miguel Cota M.D. on 05/21/2022 at 17:29 Approved by: Miguel Cota M.D. on 05/21/2022 at 17:30
--- NOTE | 2022-05-21 17:23 | DI.CT.S_ITS ---
PROCEDURE: CT CERVICAL SPINE WO CON INDICATIONS: Trauma TECHNIQUE: Noncontrast 3 mm thick sections acquired from the skull base to the T4 level. Sagittal and coronal reformats were then constructed. For radiation dose reduction, the following was used: automated exposure control, adjustment of mA and/or kV according to patient size. COMPARISON: [facility], CT, CT HEAD/BRAIN WO CON, 05/21/2022, 17:27. [facility], CT, CT CERVICAL SPINE WO CON, 11/20/2021, 16:09. FINDINGS: Image quality: Excellent. Bones: No fractures or dislocations. Visualized superior ribs are intact. Degenerative changes are seen, which are worst at the C5-C6 level, where there is at least moderate disc space narrowing, with associated endplate irregularity and sclerosis. Posteriorly projected endplate osteophytes are seen, with at least moderate central canal narrowing. Milder degenerative changes are seen elsewhere. Soft tissues: Prevertebral soft tissues are normal in thickness. No paravertebral hematomas. No apical pneumothoraces. Atherosclerotic calcification is noted. A right subclavian stent is partially seen. IMPRESSION: Negative for acute fracture. Focal C5-C6 degenerative change. Additional findings: Atherosclerotic calcification Right subclavian stent Dictated by: Miguel Cota M.D. on 05/21/2022 at 17:31 Approved by: Miguel Cota M.D. on 05/21/2022 at 17:32
--- NOTE | 2022-05-21 17:24 | ED_ITS ---
HPI - Fall <Lesly Maxwell, DO - Last Filed: 05/31/22 19:14> General Chief Complaint: Fall Stated Complaint: GLF, dislocated shoulder, HR 33 Time Seen by Provider: 05/21/22 17:13 Source: patient and EMS Mode of arrival: EMS Limitations: no limitations History of Present Illness HPI Narrative: This is a 66-year-old male with history of hemodialysis on Saturday, , Saturday, he is expected to have a cardiac stent placed on June 05 with an EF of 35% reportedly by family, patient has type 2 diabetes with bilateral upper lower extremity neuropathy, CHF, COPD, anxiety/depression, dyslipidemia. Patient states today he got tripped up in his hoses at home fell hit his right shoulder and has pain in his shoulder. He states he can not move it because it is so painful. He does not think he hit his head. He denies neck pain, back pain denies chest pain or shortness of breath he states he is had nausea and vomiting since his fall. He does not feel nauseated currently. He denies diarrhea constipation, no urinary symptoms no loss of bowel or bladder control and denies low back pain. He denies pain in his other extremities. States he always has decreased sensation from his shoulders and hips down to his feet has not noticed a new change. He is anticoagulated on aspirin and Plavix. Has not had prior cardiac stents but has had cholecystectomy and appendectomy and a fi stula on his right arm. No tobacco, no alcohol since 1986 no illicit. Patient has multiple medication allergies and can not take morphine but states he tolerates fentanyl and Dilaudid. He is accompanied by his who has vision loss. His daughter is his main caregiver. He has his POLST form in the room states full intervention but is DNR/DNI this was clarified with the patient he does not want intubation, he does not want CPR, he does not want cardiac shock or pacing. Is okay with IV medications. Patient is known to have a heart rate in the 30s he is does not think that is his normal he states he was recently started on medication to bring his heart rate down but does not know the name. Related Data Home Medications Medication Instructions Recorded Confirmed albuterol sulfate 90 mcg/actuation 1 puff inhalation PRN PRN 06/18/18 01/06/22 aerosol inhaler Shortness Of Breath amlodipine 10 mg tablet 10 mg PO DAILY 06/18/18 01/06/22 azelastine 137 mcg (0.1 %) nasal 2 spray intranasal 2XD 06/18/18 01/06/22 spray aerosol ezetimibe 10 mg tablet 10 mg PO DAILY 06/18/18 01/06/22 fluticasone 250 mcg-salmeterol 50 1 puff inhalation BID 06/18/18 01/06/22 mcg/dose blistr powdr for inhalation gemfibrozil 600 mg tablet 600 mg PO DAILY 06/18/18 01/06/22 insulin regular hum U-500 conc 500 See Protocol SUBCUT ACHS 06/18/18 01/06/22 unit/mL(3 mL) subcut pen loratadine 10 mg tablet 10 mg PO DAILY 06/18/18 01/06/22 cholecalciferol (vitamin D3) 25 25 mcg PO BID 01/06/22 01/06/22 mcg (1,000 unit) tablet diclofenac sodium 1 % topical gel 4 g topical QID 01/06/22 01/06/22 duloxetine 60 mg capsule,delayed 60 mg PO BID 01/06/22 01/06/22 release insulin glargine 100 unit/mL 10 unit SUBCUT DAILY 01/06/22 01/06/22 subcutaneous cartridge liothyronine 25 mcg tablet 25 mcg PO DAILY 01/06/22 01/06/22 magnesium oxide 420 mg tablet 420 mg PO BIDWMEAL 01/06/22 01/06/22 montelukast 10 mg tablet 10 mg PO DAILY PRN Dry Skin 01/06/22 01/06/22 tamsulosin 0.4 mg capsule 0.4 mg PO DAILY 01/06/22 01/06/22 Allergies Allergy/AdvReac Type Severity Reaction Status Date / Time Influenza Virus Vaccines Allergy Unconscious Verified 05/21/22 22:37 levofloxacin Allergy Anaphylaxis Verified 05/21/22 22:37 Beta-Blockers AdvReac Verified 05/21/22 22:37 (Beta-Adrenergic Bloc codeine AdvReac Agitated Verified 05/21/22 22:37 diazepam AdvReac Drowsy Verified 05/21/22 22:37 morphine AdvReac Vomiting Verified 05/21/22 22:37 pravastatin AdvReac Joint Pain Verified 05/21/22 22:37 rosuvastatin AdvReac Joint Pain Verified 05/21/22 22:37 simvastatin AdvReac Verified 05/21/22 22:37 [id number] Reductase AdvReac Verified 05/21/22 22:37 Inhibitor Review of Systems <Lesly Maxwell DO - Last Filed: 05/31/22 19:14> Review of Systems ROS Unobtainable: All systems reviewed & are unremarkable except as noted in HPI and below Patient History <Lesly Maxwell DO - Last Filed: 05/31/22 19:14> Medical History Amputated toe of left foot Arteriovenous fistula of right upper extremity Asthma Chronic kidney disease with end stage renal failure on dialysis Coronary artery disease Diabetes Diastolic heart failure Hyperlipidemia Hypothyroid Stroke Surgical History No pertinent past surgical history Status post cholecystectomy Social History Smoking Status: Never smoker Smoking Status: Never smoker alcohol intake frequency: 0-2 drinks per day Substance Use Type: does not use Exam <Lesly Maxwell DO - Last Filed: 05/31/22 19:14> Narrative Exam Narrative: GEN: Patient appears in mild distress. HEAD: No evidence of trauma, no raccoon/Benoit sign. NECK: Nontender, painless range of motion, trachea midline Negative Nexus criteria, there is no midline line tenderness, distracting injury, altered mental status, neuro deficit, recent EtOH. EYES: PERRLA, EOMI ENT: External inspection normal, trachea is midline, TM's are normal no hemotypanum, Nares are clear, no septal hematoma, no dental or oral injury, airway is normal and with normal occlusion, No bony tenderness RESP: Chest is nontender and has symmetric movement, no ecchymosis, breath sounds are normal no crackles, wheezes or rales CVS: Heart sounds are normal, no murmur noted, No JVD. ABG/GI: Nontender, soft, normal bowel sounds, no distention, no organomegaly, pelvic rock is negative NEURO: Oriented AOx3, neuro is grossly intact, sensation and motor is normal all 4 extremities moving, cranial nerves II through XII are intact, GCS is 15 PSYCH: Normal mood and affect SKIN: Intact, warm and dry, no crepitus and without decubitus BACK: No CVA tenderness, no vertebral tenderness, no step-off's, no crepitus EXT: Patient has swelling of the right shoulder, he will not take it through range of motion, there is not obvious deformity, patient has a fistula on the right with very intact. He is nontender on the left upper extremity as well as bilateral hips are nontender, no pedal edema, patient can lift both legs off the bed but states it is painful in his right shoulder. Initial Vital Signs Initial Vital Signs: Vital Signs Pulse Rate 32 L 05/21/22 16:56 Pulse Oximetry 93 05/21/22 16:56 <Elliott Tran DO - Last Filed: 05/23/22 02:40> Initial Vital Signs Initial Vital Signs: Vital Signs Pulse Rate 32 L 05/21/22 16:56 Pulse Oximetry 93 05/21/22 16:56 <Jai Velez DO - Last Filed: 05/22/22 10:10> Initial Vital Signs Initial Vital Signs: Vital Signs Pulse Rate 32 L 05/21/22 16:56 Pulse Oximetry 93 05/21/22 16:56 Course <Lesly Maxwell DO - Last Filed: 05/31/22 19:14> Orders Ordered: Discontinued Medications Atropine Sulfate (Atropine 1 Mg/10 Ml Syringe) 1 mg IV NOW ONE Stop: 05/21/22 17:36 Last Admin: 05/21/22 17:35 Dose: 1 mg Documented By: NR Dextrose (Dextrose 50 % In Water 25 Gm/50 Ml Syringe) 25 gm IV NOW ONE Stop: 05/21/22 18:54 Last Admin: 05/21/22 19:09 Dose: 25 gm Documented By: NR Diphtheria/Tetanus/Acell Pertussis (Tet,Diph,Pertuss(Acell),Vac/Pf 0.5 Ml Syringe) 0.5 ml IM .ONCE ONE Stop: 05/21/22 17:23 Last Admin: 05/21/22 20:31 Dose: 0.5 ml Documented By: NR Furosemide (Furosemide 40 Mg/4 Ml Vial) 40 mg IV NOW ONE Stop: 05/21/22 18:54 Last Admin: 05/21/22 19:08 Dose: 40 mg Documented By: NR Hydromorphone HCl (Hydromorphone 1 Mg Inj) 0.5 mg IV NOW ONE Stop: 05/21/22 17:23 Last Admin: 05/21/22 17:34 Dose: 0.5 mg Documented By: GABRIELLA Hydromorphone HCl (Hydromorphone 0.5 Mg Inj) 0.5 mg IV NOW ONE Stop: 05/21/22 18:29 Last Admin: 05/21/22 18:33 Dose: 0.5 mg Documented By: GABRIELLA Hydromorphone HCl (Hydromorphone 0.5 Mg Inj) 0.5 mg IV NOW ONE Stop: 05/22/22 00:51 Last Admin: 05/22/22 00:53 Dose: 0.5 mg Documented By: ARNEL Hydromorphone HCl (Hydromorphone 0.5 Mg Inj) 0.5 mg IV NOW ONE Stop: 05/22/22 06:22 Last Admin: 05/22/22 06:43 Dose: 0.5 mg Documented By: MARTIN Calcium Gluconate 4.65 meq/ (Sodium Chloride) 60 mls @ 180 mls/hr IV NOW ONE Stop: 05/21/22 17:53 Last Infusion: 05/21/22 18:48 Dose: 0 mls/hr Documented By: Admin: 05/21/22 17:38 Dose: 180 mls/hr Documented By: GABRIELLA Sodium Chloride (Normal Saline 0.9%) 1,000 mls @ 500 mls/hr IV BOLUS ONE Stop: 05/21/22 20:52 Last Infusion: 05/21/22 20:22 Dose: 0 mls/hr Documented By: Admin: 05/21/22 19:11 Dose: 500 mls/hr Documented By: GABRIELLA Insulin Human Regular (Insulin Regular 100 Unit/Ml 3 Ml Vial) 5 unit IV NOW ONE Stop: 05/21/22 18:54 Last Admin: 05/21/22 19:10 Dose: 5 unit Documented By: GABRIELLA Co-signed By: TAL Ondansetron HCl (Ondansetron 4 Mg/2 Ml Inj) 4 mg IV NOW ONE Stop: 05/21/22 17:23 Last Admin: 05/21/22 17:35 Dose: 4 mg Documented By: GABRIELLA Sodium Bicarbonate (Sodium Bicarb 8.4% Syringe) 50 meq IV NOW ONE Stop: 05/21/22 18:54 Last Admin: 05/21/22 19:09 Dose: 50 meq Documented By: NR Sodium Polystyrene Sulfonate (Sodium Polystyrene Sulfon/Sorb 15 Gm/60 Ml Cup) 30 gm PO NOW ONE Stop: 05/21/22 18:54 Last Admin: 05/21/22 19:10 Dose: 30 gm Documented By: NR Reevaluation(s) Reevaluation #1: Spoke with patient, and daughter via phone Marlen. Patient findings reviewed he is hyperkalemic, he has clear EKG changes he is not been hypotensive but has a rate down into the 30s almost sinusoidal does appear ventricular. His troponin is positive will trend out but he is supposed to have a cardiac stent on the 05 of June spoke with his daughter who is supposed to get a bypass b ut he is too frail and medically ill so they were going to stent him. Dr. Harper is his event promotions coordinator through [facility] in [place]. He is due for 5:30 a.m. dialysis tomorrow, Saturday the 22 of May. He gets his care through telling him for Cardiology. Discussed giving IV medications but both patient, and daughter as well as his POSLT form all indicate no CPR, no intubation, no shock or pacing. They are okay with IV medications. Time: 19:20 Vital Signs Vital signs: Vital Signs - 8 hr 05/22/22 05:00 05/22/22 05:00 05/22/22 05:05 Pulse Rate 67 Respiratory Rate 24 Blood Pressure 165/101 H 167/77 H Pulse Oximetry 95 05/22/22 05:05 05/22/22 05:10 05/22/22 05:10 Pulse Rate 69 69 Respiratory Rate 23 24 Blood Pressure 170/75 H Pulse Oximetry 95 95 05/22/22 05:15 05/22/22 05:15 05/22/22 05:20 Pulse Rate 69 Respiratory Rate 25 H Blood Pressure 168/89 H 170/73 H Pulse Oximetry 94 05/22/22 05:20 05/22/22 05:25 05/22/22 05:26 Pulse Rate 69 69 Respiratory Rate 19 19 Blood Pressure 170/74 H Pulse Oximetry 94 94 05/22/22 05:26 05/22/22 05:30 05/22/22 05:30 Pulse Rate 68 68 Respiratory Rate 19 18 Blood Pressure 167/74 H Pulse Oximetry 92 93 05/22/22 05:35 05/22/22 05:35 05/22/22 05:40 Pulse Rate 69 Respiratory Rate 22 Blood Pressure 169/77 H 167/69 H Pulse Oximetry 94 05/22/22 05:40 05/22/22 05:45 05/22/22 05:45 Pulse Rate 70 69 Respiratory Rate 23 22 Blood Pressure 181/76 H Pulse Oximetry 94 95 05/22/22 05:50 05/22/22 05:50 05/22/22 05:55 Pulse Rate 69 Respiratory Rate 21 Blood Pressure 165/72 H 170/76 H Pulse Oximetry 94 05/22/22 05:55 05/22/22 06:00 05/22/22 06:00 Pulse Rate 69 70 Respiratory Rate 26 H 20 Blood Pressure 163/74 H Pulse Oximetry 94 93 05/22/22 06:05 05/22/22 06:05 05/22/22 06:10 Pulse Rate 73 Respiratory Rate 22 Blood Pressure 162/72 H 162/72 H Pulse Oximetry 94 05/22/22 06:10 05/22/22 06:15 05/22/22 06:15 Pulse Rate 70 69 Respiratory Rate 22 25 H Blood Pressure 162/77 H Pulse Oximetry 93 94 05/22/22 06:20 05/22/22 06:20 05/22/22 06:25 Pulse Rate 70 73 Respiratory Rate 22 25 H Blood Pressure 181/79 H Pulse Oximetry 93 93 05/22/22 06:26 05/22/22 06:26 05/22/22 06:30 Pulse Rate 74 74 Respiratory Rate 21 22 Blood Pressure 126/60 Pulse Oximetry 93 95 05/22/22 06:31 05/22/22 06:31 05/22/22 06:35 Pulse Rate 74 Respiratory Rate 22 Blood Pressure 182/77 H 175/78 H Pulse Oximetry 95 05/22/22 06:35 05/22/22 06:40 05/22/22 06:40 Pulse Rate 74 75 Respiratory Rate 23 22 Blood Pressure 188/78 H Pulse Oximetry 96 95 05/22/22 06:45 05/22/22 06:46 05/22/22 06:46 Pulse Rate 73 70 Respiratory Rate 23 23 Blood Pressure 167/74 H Pulse Oximetry 94 95 05/22/22 06:50 05/22/22 06:50 Pulse Rate 75 Respiratory Rate 21 Blood Pressure 164/74 H Pulse Oximetry 94 <Elliott Tran, DO - Last Filed: 05/23/22 02:40> Orders Ordered: Discontinued Medications Atropine Sulfate (Atropine 1 Mg/10 Ml Syringe) 1 mg IV NOW ONE Stop: 05/21/22 17:36 Last Admin: 05/21/22 17:35 Dose: 1 mg Documented By: NR Dextrose (Dextrose 50 % In Water 25 Gm/50 Ml Syringe) 25 gm IV NOW ONE Stop: 05/21/22 18:54 Last Admin: 05/21/22 19:09 Dose: 25 gm Documented By: NR Diphtheria/Tetanus/Acell Pertussis (Tet,Diph,Pertuss(Acell),Vac/Pf 0.5 Ml Syringe) 0.5 ml IM .ONCE ONE Stop: 05/21/22 17:23 Last Admin: 05/21/22 20:31 Dose: 0.5 ml Documented By: NR Furosemide (Furosemide 40 Mg/4 Ml Vial) 40 mg IV NOW ONE Stop: 05/21/22 18:54 Last Admin: 05/21/22 19:08 Dose: 40 mg Documented By: GABRIELLA Hydromorphone HCl (Hydromorphone 1 Mg Inj) 0.5 mg IV NOW ONE Stop: 05/21/22 17:23 Last Admin: 05/21/22 17:34 Dose: 0.5 mg Documented By: GABRIELLA Hydromorphone HCl (Hydromorphone 0.5 Mg Inj) 0.5 mg IV NOW ONE Stop: 05/21/22 18:29 Last Admin: 05/21/22 18:33 Dose: 0.5 mg Documented By: GABRIELLA Hydromorphone HCl (Hydromorphone 0.5 Mg Inj) 0.5 mg IV NOW ONE Stop: 05/22/22 00:51 Last Admin: 05/22/22 00:53 Dose: 0.5 mg Documented By: ARNEL Hydromorphone HCl (Hydromorphone 0.5 Mg Inj) 0.5 mg IV NOW ONE Stop: 05/22/22 06:22 Last Admin: 05/22/22 06:43 Dose: 0.5 mg Documented By: MARTIN Calcium Gluconate 4.65 meq/ (Sodium Chloride) 60 mls @ 180 mls/hr IV NOW ONE Stop: 05/21/22 17:53 Last Infusion: 05/21/22 18:48 Dose: 0 mls/hr Documented By: Admin: 05/21/22 17:38 Dose: 180 mls/hr Documented By: NR Sodium Chloride (Normal Saline 0.9%) 1,000 mls @ 500 mls/hr IV BOLUS ONE Stop: 05/21/22 20:52 Last Infusion: 05/21/22 20:22 Dose: 0 mls/hr Documented By: Admin: 05/21/22 19:11 Dose: 500 mls/hr Documented By: NR Insulin Human Regular (Insulin Regular 100 Unit/Ml 3 Ml Vial) 5 unit IV NOW ONE Stop: 05/21/22 18:54 Last Admin: 05/21/22 19:10 Dose: 5 unit Documented By: NR Co-signed By: TAL Ondansetron HCl (Ondansetron 4 Mg/2 Ml Inj) 4 mg IV NOW ONE Stop: 05/21/22 17:23 Last Admin: 05/21/22 17:35 Dose: 4 mg Documented By: NR Sodium Bicarbonate (Sodium Bicarb 8.4% Syringe) 50 meq IV NOW ONE Stop: 05/21/22 18:54 Last Admin: 05/21/22 19:09 Dose: 50 meq Documented By: NR Sodium Polystyrene Sulfonate (Sodium Polystyrene Sulfon/Sorb 15 Gm/60 Ml Cup) 30 gm PO NOW ONE Stop: 05/21/22 18:54 Last Admin: 05/21/22 19:10 Dose: 30 gm Documented By: GABRIELLA Consultations Consultation #1: [id number] - discussed with Dr. Uribe (hospitalist at [facility]). We have discussed the patient's history and physical exam as well as lab abnormalities, interventions etc. in detail. She will accept patient, make arrangements for emergent dialysis. Consultation #2: [id number] - [facility] have called back, bed situation has changed and there is no longer bed availability. Vital Signs Vital signs: Vital Signs - 8 hr 05/22/22 05:00 05/22/22 05:00 05/22/22 05:05 Pulse Rate 67 Respiratory Rate 24 Blood Pressure 165/101 H 167/77 H Pulse Oximetry 95 05/22/22 05:05 05/22/22 05:10 05/22/22 05:10 Pulse Rate 69 69 Respiratory Rate 23 24 Blood Pressure 170/75 H Pulse Oximetry 95 95 05/22/22 05:15 05/22/22 05:15 05/22/22 05:20 Pulse Rate 69 Respiratory Rate 25 H Blood Pressure 168/89 H 170/73 H Pulse Oximetry 94 05/22/22 05:20 05/22/22 05:25 05/22/22 05:26 Pulse Rate 69 69 Respiratory Rate 19 19 Blood Pressure 170/74 H Pulse Oximetry 94 94 05/22/22 05:26 05/22/22 05:30 05/22/22 05:30 Pulse Rate 68 68 Respiratory Rate 19 18 Blood Pressure 167/74 H Pulse Oximetry 92 93 05/22/22 05:35 05/22/22 05:35 05/22/22 05:40 Pulse Rate 69 Respiratory Rate 22 Blood Pressure 169/77 H 167/69 H Pulse Oximetry 94 05/22/22 05:40 05/22/22 05:45 05/22/22 05:45 Pulse Rate 70 69 Respiratory Rate 23 22 Blood Pressure 181/76 H Pulse Oximetry 94 95 05/22/22 05:50 05/22/22 05:50 05/22/22 05:55 Pulse Rate 69 Respiratory Rate 21 Blood Pressure 165/72 H 170/76 H Pulse Oximetry 94 05/22/22 05:55 05/22/22 06:00 05/22/22 06:00 Pulse Rate 69 70 Respiratory Rate 26 H 20 Blood Pressure 163/74 H Pulse Oximetry 94 93 05/22/22 06:05 05/22/22 06:05 05/22/22 06:10 Pulse Rate 73 Respiratory Rate 22 Blood Pressure 162/72 H 162/72 H Pulse Oximetry 94 05/22/22 06:10 05/22/22 06:15 05/22/22 06:15 Pulse Rate 70 69 Respiratory Rate 22 25 H Blood Pressure 162/77 H Pulse Oximetry 93 94 05/22/22 06:20 05/22/22 06:20 05/22/22 06:25 Pulse Rate 70 73 Respiratory Rate 22 25 H Blood Pressure 181/79 H Pulse Oximetry 93 93 05/22/22 06:26 05/22/22 06:26 05/22/22 06:30 Pulse Rate 74 74 Respiratory Rate 21 22 Blood Pressure 126/60 Pulse Oximetry 93 95 05/22/22 06:31 05/22/22 06:31 05/22/22 06:35 Pulse Rate 74 Respiratory Rate 22 Blood Pressure 182/77 H 175/78 H Pulse Oximetry 95 05/22/22 06:35 05/22/22 06:40 05/22/22 06:40 Pulse Rate 74 75 Respiratory Rate 23 22 Blood Pressure 188/78 H Pulse Oximetry 96 95 05/22/22 06:45 05/22/22 06:46 05/22/22 06:46 Pulse Rate 73 70 Respiratory Rate 23 23 Blood Pressure 167/74 H Pulse Oximetry 94 95 05/22/22 06:50 05/22/22 06:50 Pulse Rate 75 Respiratory Rate 21 Blood Pressure 164/74 H Pulse Oximetry 94 <Jai Velez DO - Last Filed: 05/22/22 10:10> Orders Ordered: Discontinued Medications Atropine Sulfate (Atropine 1 Mg/10 Ml Syringe) 1 mg IV NOW ONE Stop: 05/21/22 17:36 Last Admin: 05/21/22 17:35 Dose: 1 mg Documented By: NR Dextrose (Dextrose 50 % In Water 25 Gm/50 Ml Syringe) 25 gm IV NOW ONE Stop: 05/21/22 18:54 Last Admin: 05/21/22 19:09 Dose: 25 gm Documented By: NR Diphtheria/Tetanus/Acell Pertussis (Tet,Diph,Pertuss(Acell),Vac/Pf 0.5 Ml Syringe) 0.5 ml IM .ONCE ONE Stop: 05/21/22 17:23 Last Admin: 05/21/22 20:31 Dose: 0.5 ml Documented By: NR Furosemide (Furosemide 40 Mg/4 Ml Vial) 40 mg IV NOW ONE Stop: 05/21/22 18:54 Last Admin: 05/21/22 19:08 Dose: 40 mg Documented By: NR Hydromorphone HCl (Hydromorphone 1 Mg Inj) 0.5 mg IV NOW ONE Stop: 05/21/22 17:23 Last Admin: 05/21/22 17:34 Dose: 0.5 mg Documented By: NR Hydromorphone HCl (Hydromorphone 0.5 Mg Inj) 0.5 mg IV NOW ONE Stop: 05/21/22 18:29 Last Admin: 05/21/22 18:33 Dose: 0.5 mg Documented By: NR Hydromorphone HCl (Hydromorphone 0.5 Mg Inj) 0.5 mg IV NOW ONE Stop: 05/22/22 00:51 Last Admin: 05/22/22 00:53 Dose: 0.5 mg Documented By: ARNEL Hydromorphone HCl (Hydromorphone 0.5 Mg Inj) 0.5 mg IV NOW ONE Stop: 05/22/22 06:22 Last Admin: 05/22/22 06:43 Dose: 0.5 mg Documented By: MARTIN Calcium Gluconate 4.65 meq/ (Sodium Chloride) 60 mls @ 180 mls/hr IV NOW ONE Stop: 05/21/22 17:53 Last Infusion: 05/21/22 18:48 Dose: 0 mls/hr Documented By: Admin: 05/21/22 17:38 Dose: 180 mls/hr Documented By: GABRIELLA Sodium Chloride (Normal Saline 0.9%) 1,000 mls @ 500 mls/hr IV BOLUS ONE Stop: 05/21/22 20:52 Last Infusion: 05/21/22 20:22 Dose: 0 mls/hr Documented By: Admin: 05/21/22 19:11 Dose: 500 mls/hr Documented By: GABRIELLA Insulin Human Regular (Insulin Regular 100 Unit/Ml 3 Ml Vial) 5 unit IV NOW ONE Stop: 05/21/22 18:54 Last Admin: 05/21/22 19:10 Dose: 5 unit Documented By: GABRIELLA Co-signed By: TAL Ondansetron HCl (Ondansetron 4 Mg/2 Ml Inj) 4 mg IV NOW ONE Stop: 05/21/22 17:23 Last Admin: 05/21/22 17:35 Dose: 4 mg Documented By: GABRIELLA Sodium Bicarbonate (Sodium Bicarb 8.4% Syringe) 50 meq IV NOW ONE Stop: 05/21/22 18:54 Last Admin: 05/21/22 19:09 Dose: 50 meq Documented By: GABRIELLA Sodium Polystyrene Sulfonate (Sodium Polystyrene Sulfon/Sorb 15 Gm/60 Ml Cup) 30 gm PO NOW ONE Stop: 05/21/22 18:54 Last Admin: 05/21/22 19:10 Dose: 30 gm Documented By: GABRIELLA Vital Signs Vital signs: Vital Signs - 8 hr 05/22/22 05:00 05/22/22 05:00 05/22/22 05:05 Pulse Rate 67 Respiratory Rate 24 Blood Pressure 165/101 H 167/77 H Pulse Oximetry 95 05/22/22 05:05 05/22/22 05:10 05/22/22 05:10 Pulse Rate 69 69 Respiratory Rate 23 24 Blood Pressure 170/75 H Pulse Oximetry 95 95 05/22/22 05:15 05/22/22 05:15 05/22/22 05:20 Pulse Rate 69 Respiratory Rate 25 H Blood Pressure 168/89 H 170/73 H Pulse Oximetry 94 05/22/22 05:20 05/22/22 05:25 05/22/22 05:26 Pulse Rate 69 69 Respiratory Rate 19 19 Blood Pressure 170/74 H Pulse Oximetry 94 94 05/22/22 05:26 05/22/22 05:30 05/22/22 05:30 Pulse Rate 68 68 Respiratory Rate 19 18 Blood Pressure 167/74 H Pulse Oximetry 92 93 05/22/22 05:35 05/22/22 05:35 05/22/22 05:40 Pulse Rate 69 Respiratory Rate 22 Blood Pressure 169/77 H 167/69 H Pulse Oximetry 94 05/22/22 05:40 05/22/22 05:45 05/22/22 05:45 Pulse Rate 70 69 Respiratory Rate 23 22 Blood Pressure 181/76 H Pulse Oximetry 94 95 05/22/22 05:50 05/22/22 05:50 05/22/22 05:55 Pulse Rate 69 Respiratory Rate 21 Blood Pressure 165/72 H 170/76 H Pulse Oximetry 94 05/22/22 05:55 05/22/22 06:00 05/22/22 06:00 Pulse Rate 69 70 Respiratory Rate 26 H 20 Blood Pressure 163/74 H Pulse Oximetry 94 93 05/22/22 06:05 05/22/22 06:05 05/22/22 06:10 Pulse Rate 73 Respiratory Rate 22 Blood Pressure 162/72 H 162/72 H Pulse Oximetry 94 05/22/22 06:10 05/22/22 06:15 05/22/22 06:15 Pulse Rate 70 69 Respiratory Rate 22 25 H Blood Pressure 162/77 H Pulse Oximetry 93 94 05/22/22 06:20 05/22/22 06:20 05/22/22 06:25 Pulse Rate 70 73 Respiratory Rate 22 25 H Blood Pressure 181/79 H Pulse Oximetry 93 93 05/22/22 06:26 05/22/22 06:26 05/22/22 06:30 Pulse Rate 74 74 Respiratory Rate 21 22 Blood Pressure 126/60 Pulse Oximetry 93 95 05/22/22 06:31 05/22/22 06:31 05/22/22 06:35 Pulse Rate 74 Respiratory Rate 22 Blood Pressure 182/77 H 175/78 H Pulse Oximetry 95 05/22/22 06:35 05/22/22 06:40 05/22/22 06:40 Pulse Rate 74 75 Respiratory Rate 23 22 Blood Pressure 188/78 H Pulse Oximetry 96 95 05/22/22 06:45 05/22/22 06:46 05/22/22 06:46 Pulse Rate 73 70 Respiratory Rate 23 23 Blood Pressure 167/74 H Pulse Oximetry 94 95 05/22/22 06:50 05/22/22 06:50 Pulse Rate 75 Respiratory Rate 21 Blood Pressure 164/74 H Pulse Oximetry 94 MDM - Fall <Lesly Maxwell, DO - Last Filed: 05/31/22 19:14> Lab Data Result diagrams: 05/21/22 17:23 05/21/22 21:52 Labs: Lab Results 05/21/22 05/21/22 05/21/22 Range/Units 17:23 17:40 17:40 WBC 16.6 H (4.5-11.0) X10^3/uL RBC 3.02 L (4.5-5.9) X10^6/uL Hgb 9.6 L (13.5-17.5) g/dL Hct 28.4 L (41-53) % MCV 93.8 (80-100) fL MCH 31.9 (26-34) PG MCHC 34.0 (30-36) % RDW 15.1 H (11.6-14.8) % Plt Count 200 (150-400) X10^3/uL Neut % (Auto) 83.2 H (50-75) % Lymph % (Auto) 6.5 L (25-40) % [place] % (Auto) 8.5 (3-14) % Eos % (Auto) 1.0 L (2-4) % Baso % (Auto) 0.8 (0-2) % Neut # (Auto) 10268 H (0826-6484) /uL Lymph # (Auto) 1100 (1283-3148) /uL [place] # (Auto) 1400 H (0-900) /uL Eos # (Auto) 200 (0-450) /uL Baso # (Auto) 100 (0-100) /uL PT 12.6 (10.1-12.7) SECONDS INR 1.1 (0.9-1.3) APTT 35 (26-36) SECONDS Sodium 131 L (137-145) mmol/L Potassium 7.4 H* (3.4-5.1) mmol/L Chloride 89 L (98-107) mmol/L Carbon Dioxide 22 (22-32) mmol/L BUN 113 H* (9-20) mg/dL Creatinine 5.58 H (0.66-1.25) mg/dL Estimated GFR 10 L (>60) mL/min BUN/Creatinine Ratio 20.3 (6-22) Glucose 366 H (80-110) mg/dL Lactate (0.7-2.1) mmol/L Calcium 9.1 (8.4-10.2) mg/dL Magnesium 3.0 H (1.6-2.3) mg/dL Total Bilirubin 0.7 (0.2-1.3) mg/dL AST 28 (17-59) IU/L ALT 18 (<50) IU/L Alkaline Phosphatase 91 (38-126) U/L Total Creatine Kinase 139 (55-170) U/L CK-MB (CK-2) 7.51 H (<2.37) ng/mL CK-MB (CK-2) Rel Index 5.4 H (1.5-5.0) % Troponin I 0.280 H* (0.01-0.034) ng/mL NT-Pro-B Natriuret Pep 96826 H (<125) pg/mL Total Protein 7.2 (6.3-8.2) g/dL Albumin 4.3 (3.5-5.0) g/dL Globulin 2.9 (1.7-4.1) g/dL Albumin/Globulin Ratio 1.5 (1.0-2.8) Lipase 220 (23-300) U/L Ethyl Alcohol < 10 ( - 10) mg/dL SARS-CoV-2 (PCR) (Negative) Blood Type Antibody Screen 05/21/22 05/21/22 05/21/22 Range/Units 17:53 17:53 19:00 WBC (4.5-11.0) X10^3/uL RBC (4.5-5.9) X10^6/uL Hgb (13.5-17.5) g/dL Hct (41-53) % MCV (80-100) fL MCH (26-34) PG MCHC (30-36) % RDW (11.6-14.8) % Plt Count (150-400) X10^3/uL Neut % (Auto) (50-75) % Lymph % (Auto) (25-40) % [place] % (Auto) (3-14) % Eos % (Auto) (2-4) % Baso % (Auto) (0-2) % Neut # (Auto) (8962-5959) /uL Lymph # (Auto) (0238-8545) /uL [place] # (Auto) (0-900) /uL Eos # (Auto) (0-450) /uL Baso # (Auto) (0-100) /uL PT (10.1-12.7) SECONDS INR (0.9-1.3) APTT (26-36) SECONDS Sodium (137-145) mmol/L Potassium (3.4-5.1) mmol/L Chloride (98-107) mmol/L Carbon Dioxide (22-32) mmol/L BUN (9-20) mg/dL Creatinine (0.66-1.25) mg/dL Estimated GFR (>60) mL/min BUN/Creatinine Ratio (6-22) Glucose (80-110) mg/dL Lactate 1.6 (0.7-2.1) mmol/L Calcium (8.4-10.2) mg/dL Magnesium (1.6-2.3) mg/dL Total Bilirubin (0.2-1.3) mg/dL AST (17-59) IU/L ALT (<50) IU/L Alkaline Phosphatase (38-126) U/L Total Creatine Kinase (55-170) U/L CK-MB (CK-2) (<2.37) ng/mL CK-MB (CK-2) Rel Index (1.5-5.0) % Troponin I (0.01-0.034) ng/mL NT-Pro-B Natriuret Pep (<125) pg/mL Total Protein (6.3-8.2) g/dL Albumin (3.5-5.0) g/dL Globulin (1.7-4.1) g/dL Albumin/Globulin Ratio (1.0-2.8) Lipase (23-300) U/L Ethyl Alcohol ( - 10) mg/dL SARS-CoV-2 (PCR) Negative (Negative) Blood Type B Positive Antibody Screen Negative 05/21/22 05/21/22 05/21/22 Range/Units 20:05 21:18 21:18 WBC (4.5-11.0) X10^3/uL RBC (4.5-5.9) X10^6/uL Hgb (13.5-17.5) g/dL Hct (41-53) % MCV (80-100) fL MCH (26-34) PG MCHC (30-36) % RDW (11.6-14.8) % Plt Count (150-400) X10^3/uL Neut % (Auto) (50-75) % Lymph % (Auto) (25-40) % [place] % (Auto) (3-14) % Eos % (Auto) (2-4) % Baso % (Auto) (0-2) % Neut # (Auto) (7856-8733) /uL Lymph # (Auto) (9907-9774) /uL [place] # (Auto) (0-900) /uL Eos # (Auto) (0-450) /uL Baso # (Auto) (0-100) /uL PT (10.1-12.7) SECONDS INR (0.9-1.3) APTT (26-36) SECONDS Sodium 131 L (137-145) mmol/L Potassium TNP (3.4-5.1) mmol/L Chloride 89 L (98-107) mmol/L Carbon Dioxide 26 (22-32) mmol/L BUN 116 H* (9-20) mg/dL Creatinine 5.34 H (0.66-1.25) mg/dL Estimated GFR 11 L (>60) mL/min BUN/Creatinine Ratio 21.7 (6-22) Glucose 324 H (80-110) mg/dL Lactate (0.7-2.1) mmol/L Calcium 8.9 (8.4-10.2) mg/dL Magnesium (1.6-2.3) mg/dL Total Bilirubin (0.2-1.3) mg/dL AST (17-59) IU/L ALT (<50) IU/L Alkaline Phosphatase (38-126) U/L Total Creatine Kinase 143 (55-170) U/L CK-MB (CK-2) 7.20 H (<2.37) ng/mL CK-MB (CK-2) Rel Index 5.0 (1.5-5.0) % Troponin I 0.161 H* 0.253 H* (0.01-0.034) ng/mL NT-Pro-B Natriuret Pep (<125) pg/mL Total Protein (6.3-8.2) g/dL Albumin (3.5-5.0) g/dL Globulin (1.7-4.1) g/dL Albumin/Globulin Ratio (1.0-2.8) Lipase (23-300) U/L Ethyl Alcohol ( - 10) mg/dL SARS-CoV-2 (PCR) (Negative) Blood Type Antibody Screen 05/21/22 Range/Units 21:52 WBC (4.5-11.0) X10^3/uL RBC (4.5-5.9) X10^6/uL Hgb (13.5-17.5) g/dL Hct (41-53) % MCV (80-100) fL MCH (26-34) PG MCHC (30-36) % RDW (11.6-14.8) % Plt Count (150-400) X10^3/uL Neut % (Auto) (50-75) % Lymph % (Auto) (25-40) % [place] % (Auto) (3-14) % Eos % (Auto) (2-4) % Baso % (Auto) (0-2) % Neut # (Auto) (0143-9315) /uL Lymph # (Auto) (0050-8396) /uL [place] # (Auto) (0-900) /uL Eos # (Auto) (0-450) /uL Baso # (Auto) (0-100) /uL PT (10.1-12.7) SECONDS INR (0.9-1.3) APTT (26-36) SECONDS Sodium (137-145) mmol/L Potassium 7.4 H* (3.4-5.1) mmol/L Chloride (98-107) mmol/L Carbon Dioxide (22-32) mmol/L BUN (9-20) mg/dL Creatinine (0.66-1.25) mg/dL Estimated GFR (>60) mL/min BUN/Creatinine Ratio (6-22) Glucose (80-110) mg/dL Lactate (0.7-2.1) mmol/L Calcium (8.4-10.2) mg/dL Magnesium (1.6-2.3) mg/dL Total Bilirubin (0.2-1.3) mg/dL AST (17-59) IU/L ALT (<50) IU/L Alkaline Phosphatase (38-126) U/L Total Creatine Kinase (55-170) U/L CK-MB (CK-2) (<2.37) ng/mL CK-MB (CK-2) Rel Index (1.5-5.0) % Troponin I (0.01-0.034) ng/mL NT-Pro-B Natriuret Pep (<125) pg/mL Total Protein (6.3-8.2) g/dL Albumin (3.5-5.0) g/dL Globulin (1.7-4.1) g/dL Albumin/Globulin Ratio (1.0-2.8) Lipase (23-300) U/L Ethyl Alcohol ( - 10) mg/dL SARS-CoV-2 (PCR) (Negative) Blood Type Antibody Screen Imaging Data Chest x-ray: My Impression: pulm edema Extremity x-ray #1: Radiologist's Impression: Humeral fracture. CT scan - head: Radiologist's Impression: Close Head CT (Signed) Miguel Cota - 05/21/[address] (Signed) Miguel Cota - 05/21/22 Shoulder X-Ray 05/21/22 Pelvis X-Ray 05/21/22 Chest X-Ray 05/21/22 Chest/Abdomen X-ray (Signed) Josiah Francois - 05/06/22 Brain MRI (Signed) Danny Montelongo - 01/06/[address] (Signed) ReginaldDanny - 01/06/22 Chest X-Ray (Signed) ReginaldDanny - 01/06/[address] (Signed) Kt Bernardo - 01/06/[address] (Signed) Josiah Francois - 11/20/21 Clavicle X-Ray (Signed) Savannah Espinal - 11/20/[address] (Signed) Francois,Josiah - 11/20/21 Shoulder X-Ray (Signed) Jese Benitez - 05/20/21 Elbow X-Ray (Signed) Jese Benitez - 05/20/21 Chest X-Ray (Signed) Jim Olvera - 01/16/21 Vascular Ultrasound (Signed) Parrish Shaw - 01/16/21 Chest X-Ray (Signed) Parrish Shaw - 12/18/20 Chest X-Ray (Signed) Jim Olvera - 06/18/18 Brain MRI (Signed) Shyam Jimenez - 06/14/18 Launch?[place] [address] CT Scan Report Signed Patient: Eitan Wild MR#: [id number] : 1955 Acct:[id number] Age/Sex: 66 / M Date of Service: 05/21/22 Loc: Accession Number: [id number] ?? Procedure: CT head/brain wo con Ordering Provider: Lesly Maxwell D.O. PROCEDURE:? CT HEAD/BRAIN WO CON ? INDICATIONS:? Trauma ? TECHNIQUE:? Noncontrast 4.5 mm thick angled axial sections acquired from the foramen magnum to the vertex, with coronal and sagittal reformats.? For radiation dose reduction, the following was used:? automated exposure control, adjustment of mA and/or kV according to patient size.? ? COMPARISON:? [facility], MR, MR STROKE, 01/06/2022, 9:17.? [facility], CT, CT CERVICAL SPINE WO CON, 05/21/2022, 17:27.? [facility], CT, CT HEAD/BRAIN WO CON, 01/06/2022, 0:38. ? FINDINGS:? Image quality:? This examination is limited by involuntary motion artifact.? Images are repeated, with some improvement.? ? CSF spaces:? Basal cisterns are patent.? No extra-axial fluid collections.? The ventricles are symmetric in size and shape.? ? Brain:? No intracranial bleeds or masses.? There is cerebral volume loss for age, with resultant ventricular and sulcal prominence.? There are periventricular and deep white matter chronic small vessel ischemic changes.? 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 There is intracranial internal carotid artery atherosclerosis.? ? Skull and face:? Calvarium and visualized facial bones appear intact, without suspicious lesions.? ? Sinuses:? Visualized sinuses and mastoids are clear.? ? IMPRESSION:? No acute intracranial hemorrhage is seen.? ? No acute intracranial process is seen.? ? Stable prior left cerebellar infarction. ? ? Dictated by: Miguel Cota M.D. on 05/21/2022 at 17:29 ? ? Approved by: Miguel Cota M.D. on 05/21/2022 at 17:30?? CT - cervical spine: Radiologist's Impression: Close Head CT (Signed) Miguel Cota - 05/21/[address] (Signed) Miguel Cota - 05/21/22 Shoulder X-Ray 05/21/22 Pelvis X-Ray 05/21/22 Chest X-Ray 05/21/22 Chest/Abdomen X-ray (Signed) Francois,Josiah - 05/06/22 Brain MRI (Signed) Danny Montelongo - 01/06/[address] (Signed) Danny Montelongo - 01/06/22 Chest X-Ray (Signed) Danny Montelongo - 01/06/[address] (Signed) Kt Bernardo - 01/06/[address] (Signed) Francois,Josiah - 11/20/21 Clavicle X-Ray (Signed) Savannah Espinal - 11/20/[address] (Signed) Francois,Josiah - 11/20/21 Shoulder X-Ray (Signed) Jese Benitez - 05/20/21 Elbow X-Ray (Signed) Jese Benitez - 05/20/21 Chest X-Ray (Signed) Jim Olvera - 01/16/21 Vascular Ultrasound (Signed) Parrish Shaw - 01/16/21 Chest X-Ray (Signed) Parrish Shaw - 12/18/20 Chest X-Ray (Signed) Jim Olvera - 06/18/18 Brain MRI (Signed) JimenezKavonflorian - 06/14/18 Launch?[facility] [address] [address] [address] Scan Report Signed Patient: Eitan Wild MR#: [id number] : 1955 Acct:[id number] Age/Sex: 66 / M Date of Service: 05/21/22 Loc: ED Accession Number: [id number] ?? Procedure: CT head/brain wo con Ordering Provider: Lesly Maxwell D.O. PROCEDURE:? CT HEAD/BRAIN WO CON ? INDICATIONS:? Trauma ? TECHNIQUE:? Noncontrast 4.5 mm thick angled axial sections acquired from the foramen magnum to the vertex, with coronal and sagittal reformats.? For radiation dose reduction, the following was used:? automated exposure control, adjustment of mA and/or kV according to patient size.? ? COMPARISON:? [facility], MR, MR STROKE, 01/06/2022, 9:17.? [facility], CT, CT CERVICAL SPINE WO CON, 05/21/2022, 17:27.? [facility], CT, CT HEAD/BRAIN WO CON, 01/06/2022, 0:38. ? FINDINGS:? Image quality:? This examination is limited by involuntary motion artifact.? Images are repeated, with some improvement.? ? CSF spaces:? Basal cisterns are patent.? No extra-axial fluid collections.? The ventricles are symmetric in size and shape.? ? Brain:? No intracranial bleeds or masses.? There is cerebral volume loss for age, with resultant ventricular and sulcal prominence.? There are periventricular and deep white matter chronic small vessel ischemic changes.? 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 There is intracranial internal carotid artery atherosclerosis.? ? Skull and face:? Calvarium and visualized facial bones appear intact, without suspicious lesions.? ? Sinuses:? Visualized sinuses and mastoids are clear.? ? IMPRESSION:? No acute intracranial hemorrhage is seen.? ? No acute intracranial process is seen.? ? Stable prior left cerebellar infarction. ? ? Dictated by: Miguel Cota M.D. on 05/21/2022 at 17:29 ? ? Approved by: Miguel Cota M.D. on 05/21/2022 at 17:30?? pelvic xray: My Impression: nap noted. ECG Data Attestation: I personally reviewed and interpreted this ECG as follows: Prior ECG tracings: available for review Interpretation: Bradycardia rate of 32 QRS of 144 and QTC of 413 there appears to be P waves possibly present but QRS is widened this may be ventricular rhythm. Patient has T-wave abnormalities possible depression verses sinusoidal Patient has prior EKG from 01/06/2022 does have new T-wave inversions and depressions. They do not appreciate clear elevation. MDM Narrative Medical decision making narrative: This is a 66 year old male with complaint of ground level fall after getting tripped up in the hoses at home. Patient has bradycardia, he is not particularly hypotensive but has what appears to be a ventricular rate almost sinusoidal definitely has T-wave depressions and inversions but no elevation. He denies chest pain or pressure for the last several days. Patient is dialysis patient Saturday, Saturday he has been having his regular dialysis but his daughter states he has been worsening over time. He is also supposed to have a cardiac stent placed on June 05 because he is not medically stable enough for CABG but has known cardiac disease. He does still make urine a ccording to the patient, his creatinine is elevated, his potassium is elevated in the sevens with clear EKG changes, he is open to IV medications he was given calcium gluconate, atropine which did improve his rate and after verifying his potassium additional medications. Patient was given a small fluid bolus. Because of his try head CT and cervical spine are negative, these were ordered secondary distracting injury of the right shoulder he has a clear humeral fracture, no pelvic fracture noted he does appear to be in CHF or have pulmonary edema, troponin is positive unclear if this just related to his renal dysfunction or cardiac in origin. Patient, daughter and as well as his POLST form are all in agreement about goals of care. Reaching out to patient's event promotions coordinator Dr. Burciaga, if patient is still boarding while we are trying to get him transferred for dialysis we will see if we can ship and returned to have his outpatient dialysis at 5:30 a.m. in the morning. <Elliott Tran, DO - Last Filed: 05/23/22 02:40> Lab Data Labs: Lab Results 05/21/22 05/21/22 05/21/22 Range/Units 17:23 17:40 17:40 WBC 16.6 H (4.5-11.0) X10^3/uL RBC 3.02 L (4.5-5.9) X10^6/uL Hgb 9.6 L (13.5-17.5) g/dL Hct 28.4 L (41-53) % MCV 93.8 (80-100) fL MCH 31.9 (26-34) PG MCHC 34.0 (30-36) % RDW 15.1 H (11.6-14.8) % Plt Count 200 (150-400) X10^3/uL Neut % (Auto) 83.2 H (50-75) % Lymph % (Auto) 6.5 L (25-40) % [place] % (Auto) 8.5 (3-14) % Eos % (Auto) 1.0 L (2-4) % Baso % (Auto) 0.8 (0-2) % Neut # (Auto) 19295 H (4902-3299) /uL Lymph # (Auto) 1100 (7687-9615) /uL [place] # (Auto) 1400 H (0-900) /uL Eos # (Auto) 200 (0-450) /uL Baso # (Auto) 100 (0-100) /uL PT 12.6 (10.1-12.7) SECONDS INR 1.1 (0.9-1.3) APTT 35 (26-36) SECONDS Sodium 131 L (137-145) mmol/L Potassium 7.4 H* (3.4-5.1) mmol/L Chloride 89 L (98-107) mmol/L Carbon Dioxide 22 (22-32) mmol/L BUN 113 H* (9-20) mg/dL Creatinine 5.58 H (0.66-1.25) mg/dL Estimated GFR 10 L (>60) mL/min BUN/Creatinine Ratio 20.3 (6-22) Glucose 366 H (80-110) mg/dL Lactate (0.7-2.1) mmol/L Calcium 9.1 (8.4-10.2) mg/dL Magnesium 3.0 H (1.6-2.3) mg/dL Total Bilirubin 0.7 (0.2-1.3) mg/dL AST 28 (17-59) IU/L ALT 18 (<50) IU/L Alkaline Phosphatase 91 (38-126) U/L Total Creatine Kinase 139 (55-170) U/L CK-MB (CK-2) 7.51 H (<2.37) ng/mL CK-MB (CK-2) Rel Index 5.4 H (1.5-5.0) % Troponin I 0.280 H* (0.01-0.034) ng/mL NT-Pro-B Natriuret Pep 61847 H (<125) pg/mL Total Protein 7.2 (6.3-8.2) g/dL Albumin 4.3 (3.5-5.0) g/dL Globulin 2.9 (1.7-4.1) g/dL Albumin/Globulin Ratio 1.5 (1.0-2.8) Lipase 220 (23-300) U/L Ethyl Alcohol < 10 ( - 10) mg/dL SARS-CoV-2 (PCR) (Negative) Blood Type Antibody Screen 05/21/22 05/21/22 05/21/22 Range/Units 17:53 17:53 19:00 WBC (4.5-11.0) X10^3/uL RBC (4.5-5.9) X10^6/uL Hgb (13.5-17.5) g/dL Hct (41-53) % MCV (80-100) fL MCH (26-34) PG MCHC (30-36) % RDW (11.6-14.8) % Plt Count (150-400) X10^3/uL Neut % (Auto) (50-75) % Lymph % (Auto) (25-40) % [place] % (Auto) (3-14) % Eos % (Auto) (2-4) % Baso % (Auto) (0-2) % Neut # (Auto) (9616-1338) /uL Lymph # (Auto) (2106-3051) /uL [place] # (Auto) (0-900) /uL Eos # (Auto) (0-450) /uL Baso # (Auto) (0-100) /uL PT (10.1-12.7) SECONDS INR (0.9-1.3) APTT (26-36) SECONDS Sodium (137-145) mmol/L Potassium (3.4-5.1) mmol/L Chloride (98-107) mmol/L Carbon Dioxide (22-32) mmol/L BUN (9-20) mg/dL Creatinine (0.66-1.25) mg/dL Estimated GFR (>60) mL/min BUN/Creatinine Ratio (6-22) Glucose (80-110) mg/dL Lactate 1.6 (0.7-2.1) mmol/L Calcium (8.4-10.2) mg/dL Magnesium (1.6-2.3) mg/dL Total Bilirubin (0.2-1.3) mg/dL AST (17-59) IU/L ALT (<50) IU/L Alkaline Phosphatase (38-126) U/L Total Creatine Kinase (55-170) U/L CK-MB (CK-2) (<2.37) ng/mL CK-MB (CK-2) Rel Index (1.5-5.0) % Troponin I (0.01-0.034) ng/mL NT-Pro-B Natriuret Pep (<125) pg/mL Total Protein (6.3-8.2) g/dL Albumin (3.5-5.0) g/dL Globulin (1.7-4.1) g/dL Albumin/Globulin Ratio (1.0-2.8) Lipase (23-300) U/L Ethyl Alcohol ( - 10) mg/dL SARS-CoV-2 (PCR) Negative (Negative) Blood Type B Positive Antibody Screen Negative 05/21/22 05/21/22 05/21/22 Range/Units 20:05 21:18 21:18 WBC (4.5-11.0) X10^3/uL RBC (4.5-5.9) X10^6/uL Hgb (13.5-17.5) g/dL Hct (41-53) % MCV (80-100) fL MCH (26-34) PG MCHC (30-36) % RDW (11.6-14.8) % Plt Count (150-400) X10^3/uL Neut % (Auto) (50-75) % Lymph % (Auto) (25-40) % [place] % (Auto) (3-14) % Eos % (Auto) (2-4) % Baso % (Auto) (0-2) % Neut # (Auto) (8930-4902) /uL Lymph # (Auto) (9198-4381) /uL [place] # (Auto) (0-900) /uL Eos # (Auto) (0-450) /uL Baso # (Auto) (0-100) /uL PT (10.1-12.7) SECONDS INR (0.9-1.3) APTT (26-36) SECONDS Sodium 131 L (137-145) mmol/L Potassium TNP (3.4-5.1) mmol/L Chloride 89 L (98-107) mmol/L Carbon Dioxide 26 (22-32) mmol/L BUN 116 H* (9-20) mg/dL Creatinine 5.34 H (0.66-1.25) mg/dL Estimated GFR 11 L (>60) mL/min BUN/Creatinine Ratio 21.7 (6-22) Glucose 324 H (80-110) mg/dL Lactate (0.7-2.1) mmol/L Calcium 8.9 (8.4-10.2) mg/dL Magnesium (1.6-2.3) mg/dL Total Bilirubin (0.2-1.3) mg/dL AST (17-59) IU/L ALT (<50) IU/L Alkaline Phosphatase (38-126) U/L Total Creatine Kinase 143 (55-170) U/L CK-MB (CK-2) 7.20 H (<2.37) ng/mL CK-MB (CK-2) Rel Index 5.0 (1.5-5.0) % Troponin I 0.161 H* 0.253 H* (0.01-0.034) ng/mL NT-Pro-B Natriuret Pep (<125) pg/mL Total Protein (6.3-8.2) g/dL Albumin (3.5-5.0) g/dL Globulin (1.7-4.1) g/dL Albumin/Globulin Ratio (1.0-2.8) Lipase (23-300) U/L Ethyl Alcohol ( - 10) mg/dL SARS-CoV-2 (PCR) (Negative) Blood Type Antibody Screen 05/21/22 Range/Units 21:52 WBC (4.5-11.0) X10^3/uL RBC (4.5-5.9) X10^6/uL Hgb (13.5-17.5) g/dL Hct (41-53) % MCV (80-100) fL MCH (26-34) PG MCHC (30-36) % RDW (11.6-14.8) % Plt Count (150-400) X10^3/uL Neut % (Auto) (50-75) % Lymph % (Auto) (25-40) % [place] % (Auto) (3-14) % Eos % (Auto) (2-4) % Baso % (Auto) (0-2) % Neut # (Auto) (5305-7270) /uL Lymph # (Auto) (1590-9606) /uL [place] # (Auto) (0-900) /uL Eos # (Auto) (0-450) /uL Baso # (Auto) (0-100) /uL PT (10.1-12.7) SECONDS INR (0.9-1.3) APTT (26-36) SECONDS Sodium (137-145) mmol/L Potassium 7.4 H* (3.4-5.1) mmol/L Chloride (98-107) mmol/L Carbon Dioxide (22-32) mmol/L BUN (9-20) mg/dL Creatinine (0.66-1.25) mg/dL Estimated GFR (>60) mL/min BUN/Creatinine Ratio (6-22) Glucose (80-110) mg/dL Lactate (0.7-2.1) mmol/L Calcium (8.4-10.2) mg/dL Magnesium (1.6-2.3) mg/dL Total Bilirubin (0.2-1.3) mg/dL AST (17-59) IU/L ALT (<50) IU/L Alkaline Phosphatase (38-126) U/L Total Creatine Kinase (55-170) U/L CK-MB (CK-2) (<2.37) ng/mL CK-MB (CK-2) Rel Index (1.5-5.0) % Troponin I (0.01-0.034) ng/mL NT-Pro-B Natriuret Pep (<125) pg/mL Total Protein (6.3-8.2) g/dL Albumin (3.5-5.0) g/dL Globulin (1.7-4.1) g/dL Albumin/Globulin Ratio (1.0-2.8) Lipase (23-300) U/L Ethyl Alcohol ( - 10) mg/dL SARS-CoV-2 (PCR) (Negative) Blood Type Antibody Screen MDM Narrative Medical decision making narrative: This is a 66 year old male with complaint of ground level fall after getting tripped up in the hoses at home. Patient has bradycardia, he is not particularly hypotensive but has what appears to be a ventricular rate almost sinusoidal definitely has T-wave depressions and inversions but no elevation. He denies chest pain or pressure for the last several days. Patient is dialysis patient Saturday, Saturday he has been having his regular dialysis but his daughter states he has been worsening over time. He is also supposed to have a cardiac stent placed on June 05 because he is not medically stable enough for CABG but has known cardiac disease. He does still make urine according to the patient, his creatinine is elevated, his potassium is elevated in the sevens with clear EKG changes, he is open to IV medications he was given calcium gluconate, atropine which did improve his rate and after verifying his potassium additional medications. Patient was given a small fluid bolus. Because of his try head CT and cervical spine are negative, these were ordered secondary distracting injury of the right shoulder he has a clear humeral fracture, no pelvic fracture noted he does appear to be in CHF or have pulmonary edema, troponin is positive unclear if this just related to his renal dysfunction or cardiac in origin. Patient, daughter and as well as his POLST form are all in agreement about goals of care. Reaching out to patient's event promotions coordinator Dr. Burciaga, if patient is still boarding while we are trying to get him transferred for dialysis we will see if we can ship and returned to have his outpatient dialysis at 5:30 a.m. in the morning. [2000] (Marc) Patient received in sign out from [Hans]. I have reviewed the clinical course and performed an independent history and physical exam. As noted above of we have placed multiple calls including to the [facility] and have accepting physician at [facility]. <Jai Velez, DO - Last Filed: 05/22/22 10:10> Lab Data Labs: Lab Results 05/21/22 05/21/22 05/21/22 Range/Units 17:23 17:40 17:40 WBC 16.6 H (4.5-11.0) X10^3/uL RBC 3.02 L (4.5-5.9) X10^6/uL Hgb 9.6 L (13.5-17.5) g/dL Hct 28.4 L (41-53) % MCV 93.8 (80-100) fL MCH 31.9 (26-34) PG MCHC 34.0 (30-36) % RDW 15.1 H (11.6-14.8) % Plt Count 200 (150-400) X10^3/uL Neut % (Auto) 83.2 H (50-75) % Lymph % (Auto) 6.5 L (25-40) % [place] % (Auto) 8.5 (3-14) % Eos % (Auto) 1.0 L (2-4) % Baso % (Auto) 0.8 (0-2) % Neut # (Auto) 04257 H (7222-7598) /uL Lymph # (Auto) 1100 (9022-2340) /uL [place] # (Auto) 1400 H (0-900) /uL Eos # (Auto) 200 (0-450) /uL Baso # (Auto) 100 (0-100) /uL PT 12.6 (10.1-12.7) SECONDS INR 1.1 (0.9-1.3) APTT 35 (26-36) SECONDS Sodium 131 L (137-145) mmol/L Potassium 7.4 H* (3.4-5.1) mmol/L Chloride 89 L (98-107) mmol/L Carbon Dioxide 22 (22-32) mmol/L BUN 113 H* (9-20) mg/dL Creatinine 5.58 H (0.66-1.25) mg/dL Estimated GFR 10 L (>60) mL/min BUN/Creatinine Ratio 20.3 (6-22) Glucose 366 H (80-110) mg/dL Lactate (0.7-2.1) mmol/L Calcium 9.1 (8.4-10.2) mg/dL Magnesium 3.0 H (1.6-2.3) mg/dL Total Bilirubin 0.7 (0.2-1.3) mg/dL AST 28 (17-59) IU/L ALT 18 (<50) IU/L Alkaline Phosphatase 91 (38-126) U/L Total Creatine Kinase 139 (55-170) U/L CK-MB (CK-2) 7.51 H (<2.37) ng/mL CK-MB (CK-2) Rel Index 5.4 H (1.5-5.0) % Troponin I 0.280 H* (0.01-0.034) ng/mL NT-Pro-B Natriuret Pep 80468 H (<125) pg/mL Total Protein 7.2 (6.3-8.2) g/dL Albumin 4.3 (3.5-5.0) g/dL Globulin 2.9 (1.7-4.1) g/dL Albumin/Globulin Ratio 1.5 (1.0-2.8) Lipase 220 (23-300) U/L Ethyl Alcohol < 10 ( - 10) mg/dL SARS-CoV-2 (PCR) (Negative) Blood Type Antibody Screen 05/21/22 05/21/22 05/21/22 Range/Units 17:53 17:53 19:00 WBC (4.5-11.0) X10^3/uL RBC (4.5-5.9) X10^6/uL Hgb (13.5-17.5) g/dL Hct (41-53) % MCV (80-100) fL MCH (26-34) PG MCHC (30-36) % RDW (11.6-14.8) % Plt Count (150-400) X10^3/uL Neut % (Auto) (50-75) % Lymph % (Auto) (25-40) % [place] % (Auto) (3-14) % Eos % (Auto) (2-4) % Baso % (Auto) (0-2) % Neut # (Auto) (5276-8633) /uL Lymph # (Auto) (5569-8058) /uL [place] # (Auto) (0-900) /uL Eos # (Auto) (0-450) /uL Baso # (Auto) (0-100) /uL PT (10.1-12.7) SECONDS INR (0.9-1.3) APTT (26-36) SECONDS Sodium (137-145) mmol/L Potassium (3.4-5.1) mmol/L Chloride (98-107) mmol/L Carbon Dioxide (22-32) mmol/L BUN (9-20) mg/dL Creatinine (0.66-1.25) mg/dL Estimated GFR (>60) mL/min BUN/Creatinine Ratio (6-22) Glucose (80-110) mg/dL Lactate 1.6 (0.7-2.1) mmol/L Calcium (8.4-10.2) mg/dL Magnesium (1.6-2.3) mg/dL Total Bilirubin (0.2-1.3) mg/dL AST (17-59) IU/L ALT (<50) IU/L Alkaline Phosphatase (38-126) U/L Total Creatine Kinase (55-170) U/L CK-MB (CK-2) (<2.37) ng/mL CK-MB (CK-2) Rel Index (1.5-5.0) % Troponin I (0.01-0.034) ng/mL NT-Pro-B Natriuret Pep (<125) pg/mL Total Protein (6.3-8.2) g/dL Albumin (3.5-5.0) g/dL Globulin (1.7-4.1) g/dL Albumin/Globulin Ratio (1.0-2.8) Lipase (23-300) U/L Ethyl Alcohol ( - 10) mg/dL SARS-CoV-2 (PCR) Negative (Negative) Blood Type B Positive Antibody Screen Negative 05/21/22 05/21/22 05/21/22 Range/Units 20:05 21:18 21:18 WBC (4.5-11.0) X10^3/uL RBC (4.5-5.9) X10^6/uL Hgb (13.5-17.5) g/dL Hct (41-53) % MCV (80-100) fL MCH (26-34) PG MCHC (30-36) % RDW (11.6-14.8) % Plt Count (150-400) X10^3/uL Neut % (Auto) (50-75) % Lymph % (Auto) (25-40) % [place] % (Auto) (3-14) % Eos % (Auto) (2-4) % Baso % (Auto) (0-2) % Neut # (Auto) (9305-4750) /uL Lymph # (Auto) (6753-1891) /uL [place] # (Auto) (0-900) /uL Eos # (Auto) (0-450) /uL Baso # (Auto) (0-100) /uL PT (10.1-12.7) SECONDS INR (0.9-1.3) APTT (26-36) SECONDS Sodium 131 L (137-145) mmol/L Potassium TNP (3.4-5.1) mmol/L Chloride 89 L (98-107) mmol/L Carbon Dioxide 26 (22-32) mmol/L BUN 116 H* (9-20) mg/dL Creatinine 5.34 H (0.66-1.25) mg/dL Estimated GFR 11 L (>60) mL/min BUN/Creatinine Ratio 21.7 (6-22) Glucose 324 H (80-110) mg/dL Lactate (0.7-2.1) mmol/L Calcium 8.9 (8.4-10.2) mg/dL Magnesium (1.6-2.3) mg/dL Total Bilirubin (0.2-1.3) mg/dL AST (17-59) IU/L ALT (<50) IU/L Alkaline Phosphatase (38-126) U/L Total Creatine Kinase 143 (55-170) U/L CK-MB (CK-2) 7.20 H (<2.37) ng/mL CK-MB (CK-2) Rel Index 5.0 (1.5-5.0) % Troponin I 0.161 H* 0.253 H* (0.01-0.034) ng/mL NT-Pro-B Natriuret Pep (<125) pg/mL Total Protein (6.3-8.2) g/dL Albumin (3.5-5.0) g/dL Globulin (1.7-4.1) g/dL Albumin/Globulin Ratio (1.0-2.8) Lipase (23-300) U/L Ethyl Alcohol ( - 10) mg/dL SARS-CoV-2 (PCR) (Negative) Blood Type Antibody Screen 05/21/22 Range/Units 21:52 WBC (4.5-11.0) X10^3/uL RBC (4.5-5.9) X10^6/uL Hgb (13.5-17.5) g/dL Hct (41-53) % MCV (80-100) fL MCH (26-34) PG MCHC (30-36) % RDW (11.6-14.8) % Plt Count (150-400) X10^3/uL Neut % (Auto) (50-75) % Lymph % (Auto) (25-40) % [place] % (Auto) (3-14) % Eos % (Auto) (2-4) % Baso % (Auto) (0-2) % Neut # (Auto) (4594-4587) /uL Lymph # (Auto) (9859-9071) /uL [place] # (Auto) (0-900) /uL Eos # (Auto) (0-450) /uL Baso # (Auto) (0-100) /uL PT (10.1-12.7) SECONDS INR (0.9-1.3) APTT (26-36) SECONDS Sodium (137-145) mmol/L Potassium 7.4 H* (3.4-5.1) mmol/L Chloride (98-107) mmol/L Carbon Dioxide (22-32) mmol/L BUN (9-20) mg/dL Creatinine (0.66-1.25) mg/dL Estimated GFR (>60) mL/min BUN/Creatinine Ratio (6-22) Glucose (80-110) mg/dL Lactate (0.7-2.1) mmol/L Calcium (8.4-10.2) mg/dL Magnesium (1.6-2.3) mg/dL Total Bilirubin (0.2-1.3) mg/dL AST (17-59) IU/L ALT (<50) IU/L Alkaline Phosphatase (38-126) U/L Total Creatine Kinase (55-170) U/L CK-MB (CK-2) (<2.37) ng/mL CK-MB (CK-2) Rel Index (1.5-5.0) % Troponin I (0.01-0.034) ng/mL NT-Pro-B Natriuret Pep (<125) pg/mL Total Protein (6.3-8.2) g/dL Albumin (3.5-5.0) g/dL Globulin (1.7-4.1) g/dL Albumin/Globulin Ratio (1.0-2.8) Lipase (23-300) U/L Ethyl Alcohol ( - 10) mg/dL SARS-CoV-2 (PCR) (Negative) Blood Type Antibody Screen MDM Narrative Medical decision making narrative: This is a 66 year old male with complaint of ground level fall after getting tripped up in the hoses at home. Patient has bradycardia, he is not particularly hypotensive but has what appears to be a ventricular rate almost sinusoidal definitely has T-wave depressions and inversions but no elevation. He denies chest pain or pressure for the last several days. Patient is dialysis patient Saturday, Saturday he has been having his regular dialysis but his daughter states he has been worsening over time. He is also supposed to have a cardiac stent placed on June 05 because he is not medically stable enough for CABG but has known cardiac disease. He does still make urine according to the patient, his creatinine is elevated, his potassium is elevated in the sevens with clear EKG changes, he is open to IV medications he was given calcium gluconate, atropine which did improve his rate and after verifying his potassium additional medications. Patient was given a small fluid bolus. Because of his try head CT and cervical spine are negative, these were ordered secondary distracting injury of the right shoulder he has a clear humeral fracture, no pelvic fracture noted he does appear to be in CHF or have pulmonary edema, troponin is positive unclear if this just related to his renal dysfunction or cardiac in origin. Patient, daughter and as well as his [facility] form are all in agreement about goals of care. Reaching out to patient's event promotions coordinator Dr. Burciaga, if patient is still boarding while we are trying to get him transferred for dialysis we will see if we can ship and returned to have his outpatient dialysis at 5:30 a.m. in the morning. [1999] (Marc) Patient received in sign out from Dr. Elaine]. I have reviewed the clinical course and performed an independent history and physical exam. As noted above of we have placed multiple calls including to the [facility] and have accepting physician at [facility]. Dr velez: 05/22/22 @1000: I received turned over from Dr. Tran however I had no specific clinical interaction with the patient as he had already left for dialysis when I arrived on shift. I received a call from Dr. burciaga who is the patient's event promotions coordinator who stated that after the patient arrived to dialysis he was too weak to get out of the gurney in the could not perform dialysis. Eventually we found out from report from the nursing staff that has the patient was getting out from the gurney he had will reported as a ?vagal reaction ?it became bradycardic. He is put back in the gurney. Per report he completely recovered. Because of this the dialysis nurse was uncomfortable proceeding with the dialysis. Dr. Burciaga did give me recommendations on things that we can do upon return here to our emergency department. Nursing staff had conversations with the dialysis nursing staff. I did not have any specific interaction with the EMS/transport team/dialysis nursing staff them at the patient. Nursing staff at the dialysis center was concerned about transporting the patient back by the transport ambulance they contacted 911. They stated that they were going to have the patient transfer to a place that can do emergent dialysis. I was asked at this was okay however my response was that the patient needed to return to our facility because I did not have an accepting physician at any other facility and that he was still under our care. The patient never returned to our facility but was transferred to [facility] by [facility]. I did talk with Dr. Mar at [facility] Emergency Department explaining the situation. Information was faxed to their facility. Critical Care Time <Lesly Maxwell, DO - Last Filed: 05/31/22 19:14> Critical Care Time Critical Care Time: Yes Attestation: The high probability of a clinically significant, sudden or life threatening deterioration of the [] system(s) required my full and direct attention, intervention and personal management. The aggregate critical care time was [] minutes. This time is in addition to time spent performing reported procedures but includes the following: [x] Data Review and interpretation [x] Patient assessment and monitoring of vital signs [x] Documentation [x] Medication orders and management <Elliott Tran, - Last Filed: 05/23/22 02:40> Critical Care Time Total Critical Care Time: 60 Attestation: The high probability of a clinically significant, sudden or life threatening deterioration of the [/CV] system(s) required my full and direct attention, intervention and personal management. The aggregate critical care time was [60] minutes. This time is in addition to time spent performing reported procedures but includes the following: [x] Data Review and interpretation [x] Patient assessment and monitoring of vital signs [x] Documentation [x] Medication orders and management Discharge Plan Departure Patient Disposition: Released, Other Clinical Impression: Acute hyperkalemia, Hemodialysis patient, Non-ST elevation [place] (NSTEMI), Humeral fracture, CHF (congestive heart failure) Prescriptions: No Action fluticasone propion-salmeterol [Advair Diskus] 250-50 mcg/dose blister with device 1 puff Inhalation BID amlodipine 10 mg tablet 10 mg PO DAILY gemfibrozil 600 mg tablet 600 mg PO DAILY azelastine 137 mcg (0.1 %) aerosol,spray 2 spray intranasal 2XD albuterol sulfate [ProAir HFA] 90 mcg/actuation HFA aerosol inhaler 1 puff Inhalation PRN PRN (Reason: Shortness Of Breath) loratadine 10 mg tablet 10 mg PO DAILY ezetimibe [Zetia] 10 mg tablet 10 mg PO DAILY Humulin R U-500 (Conc) Kwikpen 500 unit/mL (3 mL) insulin pen See Protocol SUBCUT ACHS Protocol: Age Greater than 75 Protocol Text: Age less than 75 years, to be administred with initial in subcutaneous dose Rx Instructions: sliding scale magnesium oxide 420 mg Tablet 420 mg PO BIDWMEAL Rx Instructions: after dialysis liothyronine 25 mcg Tablet 25 mcg PO DAILY tamsulosin 0.4 mg Capsule 0.4 mg PO DAILY montelukast 10 mg Tablet 10 mg PO DAILY PRN (Reason: Dry Skin) duloxetine 60 mg Capsule,Delayed Release(Dr/Ec) 60 mg PO BID Lantus U-100 Insulin 100 unit/mL Cartridge 10 unit SUBCUT DAILY cholecalciferol (vitamin D3) 25 mcg (1,000 unit) Tablet 25 mcg PO BID diclofenac sodium [Voltaren] 1 % Gel 4 g TOPICAL QID Rx Instructions: apply to single knee, ankle, foot; for foot includes sole/toes/top of foot Referrals: Vy Mcgee MD [Primary Care Provider] -
[2022-05-21] MEDS: HYDROMORPHONE 1 MG INJ 0.5 MG IV (17:34)
[2022-05-21] MEDS: ATROPINE 1 MG/10 ML SYRINGE IV (17:35)
[2022-05-21] MEDS: ONDANSETRON 4 MG/2 ML INJ IV (17:35)
[2022-05-21] MEDS: CALCIUM GLUCONATE 4.65 MEQ in SODIUM CHLORIDE 0.9% 50 ML 180 MEQ IV (17:38)
[2022-05-21 17:46] LABS: Add Manual Diff / Slide Review NO; Basophils Absolute Auto 100 /uL (0-100); Basophils Percent Auto 0.8 % (0-2); Eosinophils Absolute Auto 200 /uL (0-450); Hematocrit 28.4 % (41-53); Hemoglobin 9.6 g/dL (13.5-17.5); Lymphocytes Absolute Auto 1100 /uL (1100-4500); Lymphocytes Percent Auto 6.5 % (25-40); Mean Corpuscular Hemoglobin 31.9 PG (26-34); Mean Corpuscular Volume 93.8 fL (80-100); Monocytes Absolute Auto 1400 /uL (0-900); Monocytes Percent Auto 8.5 % (3-14); Neutrophils Absolute Auto 13800 /uL (1500-7000); Neutrophils Percent Auto 83.2 % (50-75); Platelet Count 200 X10^3/uL (150-400); Red Blood Cell Count 3.02 X10^6/uL (4.5-5.9); Red Cell Distribution Width 15.1 % (11.6-14.8); White Blood Cell Count 16.6 X10^3/uL (4.5-11.0)
[2022-05-21 18:02] LABS: INR 1.1 (0.9-1.3); Prothrombin Time 12.6 SECONDS (10.1-12.7)
[2022-05-21 18:05] LABS: PTT Partial Thromboplastin Tim 35 SECONDS (26-36)
[2022-05-21 18:22] LABS: Lactate (Lactic Acid) 1.6 mmol/L (0.7-2.1)
[2022-05-21] MEDS: HYDROMORPHONE 0.5 MG INJ IV (18:33)
[2022-05-21 18:35] LABS: NT-proBNP (BNP-Adult 18+) 17000 pg/mL (<125)
[2022-05-21 18:38] LABS: HEMOLYSIS < 15 (0-50)
[2022-05-21 18:45] LABS: Potassium 7.4 mmol/L (3.4-5.1)
[2022-05-21 18:46] LABS: Blood Urea Nitrogen 113 mg/dL (9-20)
[2022-05-21 18:48] LABS: Sodium 131 mmol/L (137-145)
[2022-05-21 18:49] LABS: Alanine Aminotransferase 18 IU/L (<50); Albumin 4.3 g/dL (3.5-5.0); Albumin Globulin Ratio 1.5 (1.0-2.8); Alkaline Phosphatase 91 U/L (38-126); Aspartate Aminotransferase 28 IU/L (17-59); BUN Creatinine Ratio 20.3 (6-22); Bilirubin Total 0.7 mg/dL (0.2-1.3); Calcium 9.1 mg/dL (8.4-10.2); Carbon Dioxide 22 mmol/L (22-32); Chloride 89 mmol/L (98-107); Estimated Glomerular Filt Rate 10 mL/min (>60); Globulin 2.9 g/dL (1.7-4.1); Glucose 366 mg/dL (80-110); Total Protein 7.2 g/dL (6.3-8.2)
[2022-05-21 18:50] LABS: Ethanol (ETOH) < 10 mg/dL; Lipase 220 U/L (23-300)
[2022-05-21 18:52] LABS: Creatine Kinase 139 U/L (55-170)
[2022-05-21 18:53] LABS: CKMB % Relative Index 5.4 % (1.5-5.0); Creatine Kinase MB 7.51 ng/mL (<2.37)
[2022-05-21] MEDS: FUROSEMIDE 40 MG/4 ML VIAL IV (19:08)
[2022-05-21] MEDS: DEXTROSE 50 % IN WATER 25 GM/50 ML SYRINGE IV (19:09)
[2022-05-21] MEDS: SODIUM BICARB 8.4% SYRINGE 50 MEQ IV (19:09)
[2022-05-21] MEDS: INSULIN REGULAR 100 UNIT/ML 3 ML VIAL IV (19:10)
[2022-05-21] MEDS: SODIUM POLYSTYRENE SULFON/SORB 15 GM/60 ML CUP 30 GM PO (19:10)
[2022-05-21] MEDS: SODIUM CHLORIDE 0.9% 1,000 ML 500 ML IV (19:11)
[2022-05-21] MEDS: TET,DIPH,PERTUSS(ACELL),VAC/PF 0.5 ML SYRINGE IM (20:31)
[2022-05-21 20:36] LABS: Troponin I 0.161 ng/mL (0.01-0.034)
[2022-05-21 20:40] LABS: COVID19 -Nasal RAPID Negative (Negative)
[2022-05-21 21:41] LABS: BUN Creatinine Ratio 21.7 (6-22); Calcium 8.9 mg/dL (8.4-10.2); Carbon Dioxide 26 mmol/L (22-32); Chloride 89 mmol/L (98-107); Estimated Glomerular Filt Rate 11 mL/min (>60); Glucose 324 mg/dL (80-110); Sodium 131 mmol/L (137-145)
[2022-05-21 21:44] LABS: HEMOLYSIS 119 (0-50)
[2022-05-21 21:47] LABS: Blood Urea Nitrogen 116 mg/dL (9-20)
[2022-05-21 21:48] LABS: Creatine Kinase 143 U/L (55-170)
[2022-05-21 22:09] LABS: Troponin I 0.253 ng/mL (0.01-0.034)
[2022-05-21 22:17] LABS: HEMOLYSIS 16 (0-50)
[2022-05-21 22:20] LABS: Potassium 7.4 mmol/L (3.4-5.1)
--- NOTE | 2022-05-21 22:20 | ED.CALLS ---
Call from lab - pt's repeat potassium level was not hemolyzed - level was 7.4 - critical result given to Dr. Tran
[2022-05-22] VITALS (33 sets, daily range): BP systolic 126–188; BP diastolic 60–101; PULSE 60–75; RESP 18–26; O2SAT 92–96
[2022-05-22] MEDS: HYDROMORPHONE 0.5 MG INJ IV ×2 (00:53→06:43)
--- NOTE | 2022-05-22 08:34 | PC.NURSE ---
[facility] called back to say the pt had near syncope, report was hr dropped to 30. ems states they davita called 911 and the medics want to take pt to [facility], i explained he still his out pt. that would be an EMTALA violation, i double checked with dr berrios, he agreed, its our pt. they called back in 10 min stating [facility] wants to take him to [facility]. i said ok and dr. berrios called over to speak with dr. singh at [facility] ed. dr. singh requested an ed summary. will fax.
--- NOTE | 2022-05-22 09:12 | PC.NURSE ---
[facility] ed charge nurse called me to ask what was going on, i explained to her that i told [facility] ambulance/ems that [facility] is our pt. I told her i was told by them that [facility] was taking him to [facility]. i explained that i told [facility] its not a transfer, that can be an emtala violation. the chargeback analyst also explained they don't do dialysis in the ED and there'll be a wait. she stated she will let them know about the wait and we'll see where they decide to go. i explained that i am keeping him on my board until i know for sure the pt whereabouts.
== END 2022-05-22 10:05 | disposition home or self-care (01) ==
PROVIDERS: Emergency Medicine; Emergency Provider Emergency Medicine; PCP Internal Medicine
DX: I21.4 Non-ST elevation (NSTEMI) myocardial infarction (principal); I50.9 Heart failure, unspecified; E87.5 Hyperkalemia; S42.291A Other displaced fracture of upper end of right humerus, initial encounter for closed fracture; R11.2 Nausea with vomiting, unspecified; R00.1 Bradycardia, unspecified; W01.0XXA Fall on same level from slipping, tripping and stumbling without subsequent striking against object, initial encounter; Z20.822 Contact with and (suspected) exposure to COVID-19; Z23 Encounter for immunization; Z99.2 Dependence on renal dialysis
CPT/HCPCS: 36415; 70450; 71045; 72125; 72170; 73030; 80048; 80053; 80320; 82550; 82553; 83605; 83690; 83735; 83880; 84132; 84484; 85025; 85610; 85730; 86850; 86900; 86901; 87635; 90471; 93005; 96361; 96374; 96375; 96376; 99285; 99291; C9803; 90715; J0461; J0610; J1170; J1940; J2405

== ENCOUNTER 2023-02-18 01:53 | Emergency (ER) | payer MEDICARE, OTHER, SELFPAY ==
[2023-02-18] VITALS (8 sets, daily range): BP systolic 149–171; BP diastolic 67–95; PULSE 57–64; RESP 20; TEMP 36.4–36.5; O2SAT 95–99; BMI 27.9
--- NOTE | 2023-02-18 01:54 | ED.GENADULT ---
HPI - General Adult General Chief complaint: Fall Stated complaint: fell and hit head left side Time Seen by Provider: 02/18/23 01:54 History of Present Illness HPI narrative: 67-year-old male nonsmoker with history of coronary artery disease, chronic kidney disease, CHF, diabetes presents with family for evaluation of injury suffered as a consequence of a ground level fall earlier tonight. His very unsteady and weak at baseline and was transitioning from his wheelchair over to a couch and lost control a bit and fell, striking his forehead and left elbow. He has a small skin tear in his lateral elbow and minimal pain with range of motion. He has a laceration on his forehead. He has full recall of the event denies any loss of consciousness and does not take blood thinners though he is on aspirin and Plavix. He denies any neck or back pain. He denies any prodromal symptoms contributing to the fall such as weakness, lightheadedness or chest pain Related Data Home Medications Medication Instructions Recorded Confirmed albuterol sulfate 90 mcg/actuation 1 puff inhalation PRN PRN 06/18/18 01/06/22 aerosol inhaler Shortness Of Breath amlodipine 10 mg tablet 10 mg PO DAILY 06/18/18 01/06/22 azelastine 137 mcg (0.1 %) nasal 2 spray intranasal 2XD 06/18/18 01/06/22 spray aerosol ezetimibe 10 mg tablet 10 mg PO DAILY 06/18/18 01/06/22 fluticasone 250 mcg-salmeterol 50 1 puff inhalation BID 06/18/18 01/06/22 mcg/dose blistr powdr for inhalation gemfibrozil 600 mg tablet 600 mg PO DAILY 06/18/18 01/06/22 insulin regular hum U-500 conc 500 See Protocol SUBCUT ACHS 06/18/18 01/06/22 unit/mL(3 mL) subcut pen loratadine 10 mg tablet 10 mg PO DAILY 06/18/18 01/06/22 cholecalciferol (vitamin D3) 25 25 mcg PO BID 01/06/22 01/06/22 mcg (1,000 unit) tablet diclofenac sodium 1 % topical gel 4 g topical QID 01/06/22 01/06/22 duloxetine 60 mg capsule,delayed 60 mg PO BID 01/06/22 01/06/22 release insulin glargine 100 unit/mL 10 unit SUBCUT DAILY 01/06/22 01/06/22 subcutaneous cartridge liothyronine 25 mcg tablet 25 mcg PO DAILY 01/06/22 01/06/22 magnesium oxide 420 mg tablet 420 mg PO BIDWMEAL 01/06/22 01/06/22 montelukast 10 mg tablet 10 mg PO DAILY PRN Dry Skin 01/06/22 01/06/22 tamsulosin 0.4 mg capsule 0.4 mg PO DAILY 01/06/22 01/06/22 Allergies Allergy/AdvReac Type Severity Reaction Status Date / Time Influenza Virus Vaccines Allergy Unconscious Verified 05/21/22 22:37 levofloxacin Allergy Anaphylaxis Verified 05/21/22 22:37 Beta-Blockers AdvReac Verified 05/21/22 22:37 (Beta-Adrenergic Bloc codeine AdvReac Agitated Verified 05/21/22 22:37 diazepam AdvReac Drowsy Verified 05/21/22 22:37 morphine AdvReac Vomiting Verified 05/21/22 22:37 pravastatin AdvReac Joint Pain Verified 05/21/22 22:37 rosuvastatin AdvReac Joint Pain Verified 05/21/22 22:37 simvastatin AdvReac Verified 05/21/22 22:37 [id number] Reductase AdvReac Verified 05/21/22 22:37 Inhibitor Review of Systems Review of Systems Narrative: GENERAL: Denies chills, fatigue, malaise, fever, sweats. HEENT: Denies sinus pain, ear pain, sore throat, difficulty swallowing, dizziness. RESPIRATORY: Denies dyspnea, cough, wheezing, hemoptysis, sputum. CARDIOVASCULAR: Denies chest pain, palpitations, orthopnea, edema, GASTROINTESTINAL: Denies nausea, vomiting, abdominal pain, diarrhea, constipation, melena. : Denies dysuria, frequency, incontinence, hematuria, urinary retention. MUSCULOSKELETAL: See HPI SKIN: See HPI NEUROLOGIC: Denies weakness, headache, numbness, change in speech, confusion, seizures, incoordination. PSYCHIATRIC: No concerning psychosocial issues. 12 point review of systems is negative except for those stated above Patient History Medical History Amputated toe of left foot Arteriovenous fistula of right upper extremity Asthma Chronic kidney disease with end stage renal failure on dialysis Coronary artery disease Diabetes Diastolic heart failure Hyperlipidemia Hypothyroid Stroke Surgical History No pertinent past surgical history Status post cholecystectomy Social History Smoking Status: Never smoker Smoking Status: Never smoker alcohol intake frequency: 0-2 drinks per day Substance Use Type: does not use Exam Narrative Exam Narrative: GEN: AOx3 and in mild distress HEAD: 2cm laceration on left forehead, no other contusion or laceration. No evidence of depressed skull fracture EYES: Pupils are equal, round, and reactive to light and accommodation. NO hyphema. Extraoccular muscles are intact bilaterally. There is no subconjunctival hemorrhage or exudate. CHEST: Lungs are clear to auscultation bilaterally and free of wheezes, rales, or rhonchi. Heart rate is regular rhythm, there are no murmurs, clicks, rubs, or gallops. There is no chest wall tenderness. ABD: Abdomen is soft and nontender. There is no guarding or rebound. Bowel sounds are normal in all 4 quadrants. There is no mass or organomegaly. EXT: Superficial skin tear on the lateral aspect of left elbow, no depth to require repair, full range of motion with flexion, extension as well as pronation and supination Full painless ROM of all extremities with no loss of sensation or strength. SKIN: Warm, pink, and dry. No erythema or rash Initial Vital Signs Initial Vital Signs: Vital Signs Pulse Rate 63 02/18/23 02:03 Pulse Oximetry 95 02/18/23 02:03 Course Orders Ordered: ED Orders 02/18/23 02:00 EKG-12 Lead Routine 02/18/23 02:19 CT head/brain wo con Stat Vital Signs Vital signs: Vital Signs - 8 hr 02/18/23 02:06 02/18/23 02:03 02/18/23 02:04 Temperature 97.7 F Pulse Rate 62 63 Respiratory Rate 20 Blood Pressure 167/79 H 149/67 H Pulse Oximetry 97 95 Oxygen Delivery Method Nasal Cannula Oxygen Flow Rate 2 02/18/23 02:04 02/18/23 02:42 02/18/23 02:45 Temperature Pulse Rate 63 57 L Respiratory Rate Blood Pressure 164/73 H Pulse Oximetry 95 97 Oxygen Delivery Method Oxygen Flow Rate 02/18/23 02:45 02/18/23 03:00 02/18/23 03:00 Temperature Pulse Rate 61 64 Respiratory Rate Blood Pressure 165/70 H Pulse Oximetry 98 98 Oxygen Delivery Method Oxygen Flow Rate Medical Decision Making [facility] Narrative Medical decision making narrative: [67] year old patient presents with fall with injuries Multiple etiologies for patient's symptoms considered including, but not limited to: [Lacerations versus skull fracture versus intracranial hemorrhage versus other] Prior Charts reviewed in our EMR Primary Historian: patient Imaging reviewed: Head CT demonstrates NAP Patient's symptoms improved over duration of stay with above-stated therapies. Findings and discharge diagnosis discussed with patient/family followed by verbalization of understanding Return precautions discussed with patient/family whom verbalize understanding of diagnosis and plan Discharge Plan Departure Patient Disposition: Home Clinical Impression: Head injury, Laceration of scalp, Skin tear Instructions: How to Prevent Falls Activity Restrictions/Additional Instructions: *You have been diagnosed with [fall with minor injuries. As we discussed your history and physical exam are reassuring and the CT scan shows no fracture or bleeding in your brain] *What to do: *Please continue to take your regular medications as directed. [ ] New medication prescriptions sent to your pharmacy: [ ] [ ] New medication written as a paper prescription [ ] No new medications given *Please follow up with your primary care provider in 2-3 days, call for an appointment. Let them know you were seen in the Emergency Department and that we ask that you be seen in follow up. We will electronically transmit a record of today's note if your PCP is in our system *Return to Emergency Department if you should have any new, worsening or concerning symptoms, such as [fever greater than 101 F, shaking chills, worsening pain, persistent vomiting or other bothersome symptoms] Prescriptions: No Action fluticasone propion-salmeterol [Advair Diskus] 250-50 mcg/dose blister with device 1 puff Inhalation BID amlodipine 10 mg tablet 10 mg PO DAILY gemfibrozil 600 mg tablet 600 mg PO DAILY azelastine 137 mcg (0.1 %) aerosol,spray 2 spray intranasal 2XD albuterol sulfate [ProAir HFA] 90 mcg/actuation HFA aerosol inhaler 1 puff Inhalation PRN PRN (Reason: Shortness Of Breath) loratadine 10 mg tablet 10 mg PO DAILY ezetimibe [Zetia] 10 mg tablet 10 mg PO DAILY Humulin R U-500 (Conc) Kwikpen 500 unit/mL (3 mL) insulin pen See Protocol SUBCUT ACHS Protocol: Age Greater than 75 Protocol Text: Age less than 75 years, to be administred with initial in subcutaneous dose Rx Instructions: sliding scale magnesium oxide 420 mg Tablet 420 mg PO BIDWMEAL Rx Instructions: after dialysis liothyronine 25 mcg Tablet 25 mcg PO DAILY tamsulosin 0.4 mg Capsule 0.4 mg PO DAILY montelukast 10 mg Tablet 10 mg PO DAILY PRN (Reason: Dry Skin) duloxetine 60 mg Capsule,Delayed Release(Dr/Ec) 60 mg PO BID Lantus U-100 Insulin 100 unit/mL Cartridge 10 unit SUBCUT DAILY cholecalciferol (vitamin D3) 25 mcg (1,000 unit) Tablet 25 mcg PO BID diclofenac sodium [Voltaren] 1 % Gel 4 g TOPICAL QID Rx Instructions: apply to single knee, ankle, foot; for foot includes sole/toes/top of foot Referrals: Vy Mcgee MD [Primary Care Provider] - Stand Alone Forms: Patient Portal/API
--- NOTE | 2023-02-18 02:19 | DI.CT.S_ITS ---
PROCEDURE: CT HEAD/BRAIN WO CON INDICATIONS: fall with head injury, dual antiplatelet therapy TECHNIQUE: Noncontrast 4.5 mm thick angled axial sections acquired from the foramen magnum to the vertex, with coronal and sagittal reformats. For radiation dose reduction, the following was used: automated exposure control, adjustment of mA and/or kV according to patient size. COMPARISON: [facility], CT, CT HEAD/BRAIN WO CON, 05/21/2022, 17:27. FINDINGS: Image quality: Excellent. CSF spaces: Basal cisterns are patent. No extra-axial fluid collections. The ventricles are symmetric in size and shape. Brain: No intracranial bleeds or masses. There is cerebral volume loss for age, with resultant ventricular and sulcal prominence. There are periventricular and deep white matter chronic small vessel ischemic changes. Old lacunar infarcts in the left cerebellum and right basal ganglia. There is intracranial internal carotid artery atherosclerosis. Skull and face: Calvarium and visualized facial bones appear intact, without suspicious lesions. Left frontal scalp contusion. Bilateral lens replacements. Otherwise, the orbits are unremarkable. Sinuses: Moderate to severe mucosal thickening of the left maxillary sinus. The remaining paranasal sinuses and mastoid air cells are clear. IMPRESSION: 1. No acute large territorial infarct, intracranial hemorrhage or mass effect. 2. New left maxillary sinusitis. Findings are concordant with preliminary interpretation provided by [facility]. Dictated by: Ladarius Flanagan M.D. on 02/18/2023 at 7:59 Approved by: Ladarius Flanagan M.D. on 02/18/2023 at 8:01
--- NOTE | 2023-02-18 03:27 | PC.NURSE ---
After NS flush, lt forehead & elbow wounds steri stripped & bandaids applied.
== END 2023-02-18 04:06 | disposition home or self-care (01) ==
PROVIDERS: Emergency Provider Emergency Medicine; PCP Internal Medicine
DX: S01.81XA Laceration without foreign body of other part of head, initial encounter (principal); S50.312A Abrasion of left elbow, initial encounter; W18.30XA Fall on same level, unspecified, initial encounter; Z79.02 Long term (current) use of antithrombotics/antiplatelets
CPT/HCPCS: 70450; 93005; 99284

== ENCOUNTER 2023-04-13 07:14 | Emergency (ER) | payer MEDICARE, OTHER, SELFPAY ==
--- NOTE | 2023-04-13 07:24 | DI.CT.S_ITS ---
PROCEDURE: CT HEAD/BRAIN WO CON INDICATIONS: fall, thinners, possible head injury TECHNIQUE: Noncontrast 4.5 mm thick angled axial sections acquired from the foramen magnum to the vertex, with coronal and sagittal reformats. For radiation dose reduction, the following was used: automated exposure control, adjustment of mA and/or kV according to patient size. COMPARISON: [facility], CT, CT HEAD WITHOUT CONTRAST, 10/08/2022, 0:13. [facility], CT, CT HEAD/BRAIN WO CON, 02/18/2023, 2:29. FINDINGS: Image quality: Good. CSF spaces: Basal cisterns are patent. No extra-axial fluid collections. Ventricles are normal in size and shape. Brain: No midline shift. No intracranial masses or hemorrhage. No area of hypodensity in a large vascular distribution to suggest acute infarction. Periventricular hypodensity consistent with chronic microvascular ischemic change. Age-related parenchymal loss. Skull and face: Calvarium and visualized facial bones are intact, without suspicious lesions. Sinuses: Visualized sinuses and mastoids are clear. Improved mucosal thickening in the left maxillary sinus compared to 02/18/2023. IMPRESSION: No acute cardiopulmonary abnormality. Dictated by: Denis Marquis M.D. on 04/13/2023 at 7:52 Approved by: Denis Marquis M.D. on 04/13/2023 at 7:56
[2023-04-13 07:25] VITALS: BP 170/75; PULSE 63; RESP 18; TEMP 36.8; O2SAT 92; BMI 25.0
[2023-04-13 07:38] LABS: Add Manual Diff / Slide Review NO; Basophils Absolute Auto 100 /uL (0-100); Basophils Percent Auto 1.4 % (0-2); Eosinophils Absolute Auto 500 /uL (0-450); Eosinophils Percent Auto 5.1 % (2-4); Hematocrit 35.1 % (41-53); Hemoglobin 11.7 g/dL (13.5-17.5); Lymphocytes Absolute Auto 1000 /uL (1100-4500); Lymphocytes Percent Auto 10.8 % (25-40); Mean Corpuscular HGB Conc 33.5 % (30-36); Mean Corpuscular Hemoglobin 31.6 PG (26-34); Mean Corpuscular Volume 94.6 fL (80-100); Monocytes Absolute Auto 700 /uL (0-900); Monocytes Percent Auto 7.9 % (3-14); Neutrophils Absolute Auto 6700 /uL (1500-7000); Neutrophils Percent Auto 74.8 % (50-75); Platelet Count 252 X10^3/uL (150-400); Red Blood Cell Count 3.71 X10^6/uL (4.5-5.9); Red Cell Distribution Width 16.9 % (11.6-14.8); White Blood Cell Count 8.9 X10^3/uL (4.5-11.0)
--- NOTE | 2023-04-13 07:56 | ED.FALL ---
HPI - Fall General Chief Complaint: Fall Stated Complaint: Fall out of chair Time Seen by Provider: 04/13/23 07:24 Source: patient and EMS Mode of arrival: EMS History of Present Illness HPI Narrative: 67-year-old male nonsmoker with history of end-stage renal disease on dialysis Saturday and Saturday, coronary artery disease, hypertension, hyperlipidemia presents by EMS for evaluation of a fall. He states that he had a normal run of dialysis yesterday and was feeling in his normal state of health when he went to bed and this morning his feet got caught up in a blanket and he very slowly slid to the floor. He denies any head neck or back pain or injury. He states that he frequently gets nauseated and admits that he vomited 1 time but feels at his baseline currently. He has no headache, blurred vision or trouble with speech, he is not dizzy or lightheaded, he is no longer nauseated. He denies chest pain or shortness of breath. He is had no fever or chills. Related Data Home Medications Medication Instructions Recorded Confirmed albuterol sulfate 90 mcg/actuation 1 puff inhalation PRN PRN 06/18/18 01/06/22 aerosol inhaler Shortness Of Breath amlodipine 10 mg tablet 10 mg PO DAILY 06/18/18 01/06/22 azelastine 137 mcg (0.1 %) nasal 2 spray intranasal 2XD 06/18/18 01/06/22 spray aerosol ezetimibe 10 mg tablet 10 mg PO DAILY 06/18/18 01/06/22 fluticasone 250 mcg-salmeterol 50 1 puff inhalation BID 06/18/18 01/06/22 mcg/dose blistr powdr for inhalation gemfibrozil 600 mg tablet 600 mg PO DAILY 06/18/18 01/06/22 insulin regular hum U-500 conc 500 See Protocol SUBCUT ACHS 06/18/18 01/06/22 unit/mL(3 mL) subcut pen loratadine 10 mg tablet 10 mg PO DAILY 06/18/18 01/06/22 cholecalciferol (vitamin D3) 25 25 mcg PO BID 01/06/22 01/06/22 mcg (1,000 unit) tablet diclofenac sodium 1 % topical gel 4 g topical QID 01/06/22 01/06/22 duloxetine 60 mg capsule,delayed 60 mg PO BID 01/06/22 01/06/22 release insulin glargine 100 unit/mL 10 unit SUBCUT DAILY 01/06/22 01/06/22 subcutaneous cartridge liothyronine 25 mcg tablet 25 mcg PO DAILY 01/06/22 01/06/22 magnesium oxide 420 mg tablet 420 mg PO BIDWMEAL 01/06/22 01/06/22 montelukast 10 mg tablet 10 mg PO DAILY PRN Dry Skin 01/06/22 01/06/22 tamsulosin 0.4 mg capsule 0.4 mg PO DAILY 01/06/22 01/06/22 Allergies Allergy/AdvReac Type Severity Reaction Status Date / Time Influenza Virus Vaccines Allergy Unconscious Verified 05/21/22 22:37 levofloxacin Allergy Anaphylaxis Verified 05/21/22 22:37 Beta-Blockers AdvReac Verified 05/21/22 22:37 (Beta-Adrenergic Bloc codeine AdvReac Agitated Verified 05/21/22 22:37 diazepam AdvReac Drowsy Verified 05/21/22 22:37 morphine AdvReac Vomiting Verified 05/21/22 22:37 pravastatin AdvReac Joint Pain Verified 05/21/22 22:37 rosuvastatin AdvReac Joint Pain Verified 05/21/22 22:37 simvastatin AdvReac Verified 05/21/22 22:37 [id number] Reductase AdvReac Verified 05/21/22 22:37 Inhibitor Review of Systems Review of Systems Narrative: GENERAL: Denies chills, fatigue, malaise, fever, sweats. HEENT: Denies sinus pain, ear pain, sore throat, difficulty swallowing, dizziness. RESPIRATORY: Denies dyspnea, cough, wheezing, hemoptysis, sputum. CARDIOVASCULAR: Denies chest pain, palpitations, orthopnea, edema, GASTROINTESTINAL: See HPI : Denies dysuria, frequency, incontinence, hematuria, urinary retention. MUSCULOSKELETAL: denies weakness, joint pain, or bony pain SKIN: Denies rash, skin lesions, or other NEUROLOGIC: Denies weakness, headache, numbness, change in speech, confusion, seizures, incoordination. PSYCHIATRIC: No concerning psychosocial issues. 12 point review of systems is negative except for those stated above Patient History Medical History Stroke Asthma Hypothyroid Hyperlipidemia Amputated toe of left foot Arteriovenous fistula of right upper extremity Coronary artery disease Diastolic heart failure Chronic kidney disease with end stage renal failure on dialysis Diabetes Surgical History Status post cholecystectomy No pertinent past surgical history Social History Smoking Status: Never smoker Smoking Status: Never smoker alcohol intake frequency: 0-2 drinks per day Substance Use Type: does not use Exam Narrative Exam Narrative: GENERAL: [67] year old patient appears stated age. Well-developed patient, in no obvious distress, GCS 15 HEAD: Atraumatic. Normocephalic. No contusion, abrasion or laceration, no evidence of depressed skull fracture EYES: Pupils equal round and reactive. No hyphema Extraocular motions intact. No scleral icterus. No injection or drainage. ENT: Nose without bleeding, purulent drainage. No nasal septal hematoma Throat without erythema, tonsillar hypertrophy or exudate. Airway patent. NECK: Trachea midline. Non tender CARDIOVASCULAR: Regular rate and rhythm without murmurs, gallops, or rubs. RESPIRATORY: Clear to auscultation. Breath sounds equal bilaterally. No wheezes, rales, or rhonchi. GASTROINTESTINAL: Abdomen soft, non-tender, nondistended. EXTREMITIES: No edema or joint tenderness. BACK: Nontender without deformity or crepitance. No flank tenderness. NEURO: AOx3. SKIN: No rash or erythema of visible areas Initial Vital Signs Initial Vital Signs: Vital Signs Temperature 98.3 F 04/13/23 07:25 Pulse Rate 63 04/13/23 07:25 Respiratory Rate 18 04/13/23 07:25 Blood Pressure 170/75 H 04/13/23 07:25 Pulse Oximetry 92 04/13/23 07:25 Oxygen Delivery Method Nasal Cannula 04/13/23 07:25 Oxygen Flow Rate 2 04/13/23 07:25 Course Orders Ordered: ED Orders 04/13/23 07:24 CT head/brain wo con Stat 04/13/23 07:33 Complete Blood Count AUTO DIFF Stat Comprehensive Metabolic Panel Stat Magnesium Stat Discontinued Medications Ondansetron HCl (Ondansetron 4 Mg/2 Ml Inj) 4 mg IV NOW ONE Stop: 04/13/23 09:21 Last Admin: 04/13/23 09:57 Dose: Not Given Documented By: STEVAN Pantoprazole Sodium (Pantoprazole 40 Mg Vial) 40 mg IV NOW ONE Stop: 04/13/23 09:21 Last Admin: 04/13/23 09:58 Dose: Not Given Documented By: STEVAN Vital Signs Vital signs: Vital Signs - 8 hr 04/13/23 07:25 04/13/23 08:06 04/13/23 08:48 Temperature 98.3 F Pulse Rate 63 54 L 89 Respiratory Rate 18 18 21 Blood Pressure 170/75 H 173/78 H 170/83 H Pulse Oximetry 92 97 95 Oxygen Delivery Method Nasal Cannula Nasal Cannula Nasal Cannula Oxygen Flow Rate 2 2 04/13/23 10:10 Temperature Pulse Rate 54 L Respiratory Rate Blood Pressure 157/68 H Pulse Oximetry 97 Oxygen Delivery Method Room Air Oxygen Flow Rate MDM - Fall Lab Data 04/13/23 07:33 04/13/23 07:33 Labs: Lab Results 04/13/23 Range/Units 07:33 WBC 8.9 (4.5-11.0) X10^3/uL RBC 3.71 L (4.5-5.9) X10^6/uL Hgb 11.7 L (13.5-17.5) g/dL Hct 35.1 L (41-53) % MCV 94.6 (80-100) fL MCH 31.6 (26-34) PG MCHC 33.5 (30-36) % RDW 16.9 H (11.6-14.8) % Plt Count 252 (150-400) X10^3/uL Neut % (Auto) 74.8 (50-75) % Lymph % (Auto) 10.8 L (25-40) % Wilkinson % (Auto) 7.9 (3-14) % Eos % (Auto) 5.1 H (2-4) % Baso % (Auto) 1.4 (0-2) % Neut # (Auto) 6700 (9211-4559) /uL Lymph # (Auto) 1000 L (8533-2511) /uL Wilkinson # (Auto) 700 (0-900) /uL Eos # (Auto) 500 H (0-450) /uL Baso # (Auto) 100 (0-100) /uL Sodium 133 L (137-145) mmol/L Potassium 4.7 (3.4-5.1) mmol/L Chloride 89 L (98-107) mmol/L Carbon Dioxide 31 (22-32) mmol/L BUN 41 H (9-20) mg/dL Creatinine 3.48 H (0.66-1.25) mg/dL Estimated GFR 18 L (>60) mL/min BUN/Creatinine Ratio 11.8 (6-22) Glucose 309 H (80-110) mg/dL Calcium 10.7 H (8.4-10.2) mg/dL Magnesium 2.4 H (1.6-2.3) mg/dL Total Bilirubin 1.0 (0.2-1.3) mg/dL AST 34 (17-59) IU/L ALT 16 (<50) IU/L Alkaline Phosphatase 127 H (38-126) U/L Total Protein 8.1 (6.3-8.2) g/dL Albumin 4.6 (3.5-5.0) g/dL Globulin 3.5 (1.7-4.1) g/dL Albumin/Globulin Ratio 1.3 (1.0-2.8) MDM Narrative Medical decision making narrative: [67] year old patient presents with a slow speed, low risk fall and 1 episode of vomiting Multiple etiologies for patient's symptoms considered including, but not limited to: [Dehydration versus intracranial hemorrhage versus electrolyte abnormality versus other] Prior Charts reviewed in our EMR Primary Historian: patient Labs reviewed and interpreted by myself: No signs of infectious process or acute anemia, electrolytes and renal function at patient's baseline Imaging reviewed: Head CT without acute findings Patient's history and physical exam are reassuring. He is asymptomatic. Labs are unremarkable, imaging unremarkable, low suspicion for significant findings based on history and physical exam. Patient feels well and at his baseline and ready for discharge Patient's symptoms improved over duration of stay with above-stated therapies. Findings and discharge diagnosis discussed with patient/family followed by verbalization of understanding Return precautions discussed with patient/family whom verbalize understanding of diagnosis and plan Discharge Plan Departure Patient Disposition: Home Clinical Impression: Feared complaint without diagnosis, Fall Instructions: How to Prevent Falls Activity Restrictions/Additional Instructions: *You have been diagnosed with [slow fall without obvious cause or injury. As we discussed your labs are at her baseline in the CT scan shows no evidence of bleeding or abnormality] *What to do: *Please continue to take your regular medications as directed. [ ] New medication prescriptions sent to your pharmacy: [ ] [ ] New medication written as a paper prescription [ ] No new medications given *Please follow up with your primary care provider in 2-3 days, call for an appointment. Let them know you were seen in the Emergency Department and that we ask that you be seen in follow up. We will electronically transmit a record of today's note if your PCP is in our system *If you do not have a primary care provider please contact the [facility] Resource line at [phone]. They will ask some questions about your medical history and help get you set up with a doctor in the community. *Return to Emergency Department if you should have any new, worsening or concerning symptoms, such as [fever greater than 101 F, shaking chills, worsening pain, persistent vomiting or other bothersome symptoms] Prescriptions: No Action fluticasone propion-salmeterol [Advair Diskus] 250-50 mcg/dose blister with device 1 puff Inhalation BID amlodipine 10 mg tablet 10 mg PO DAILY gemfibrozil 600 mg tablet 600 mg PO DAILY azelastine 137 mcg (0.1 %) aerosol,spray 2 spray intranasal 2XD albuterol sulfate [ProAir HFA] 90 mcg/actuation HFA aerosol inhaler 1 puff Inhalation PRN PRN (Reason: Shortness Of Breath) loratadine 10 mg tablet 10 mg PO DAILY ezetimibe [Zetia] 10 mg tablet 10 mg PO DAILY Humulin R U-500 (Conc) Kwikpen 500 unit/mL (3 mL) insulin pen See Protocol SUBCUT ACHS Protocol: Age Greater than 75 Protocol Text: Age less than 75 years, to be administred with initial in subcutaneous dose Rx Instructions: sliding scale magnesium oxide 420 mg Tablet 420 mg PO BIDWMEAL Rx Instructions: after dialysis liothyronine 25 mcg Tablet 25 mcg PO DAILY tamsulosin 0.4 mg Capsule 0.4 mg PO DAILY montelukast 10 mg Tablet 10 mg PO DAILY PRN (Reason: Dry Skin) duloxetine 60 mg Capsule,Delayed Release(Dr/Ec) 60 mg PO BID Lantus U-100 Insulin 100 unit/mL Cartridge 10 unit SUBCUT DAILY cholecalciferol (vitamin D3) 25 mcg (1,000 unit) Tablet 25 mcg PO BID diclofenac sodium [Voltaren] 1 % Gel 4 g TOPICAL QID Rx Instructions: apply to single knee, ankle, foot; for foot includes sole/toes/top of foot Referrals: Vy Mcgee MD [Primary Care Provider] - Stand Alone Forms: Patient Portal/API
[2023-04-13 08:02] LABS: Alanine Aminotransferase 16 IU/L (<50); Albumin 4.6 g/dL (3.5-5.0); Albumin Globulin Ratio 1.3 (1.0-2.8); Alkaline Phosphatase 127 U/L (38-126); Aspartate Aminotransferase 34 IU/L (17-59); BUN Creatinine Ratio 11.8 (6-22); Blood Urea Nitrogen 41 mg/dL (9-20); Calcium 10.7 mg/dL (8.4-10.2); Carbon Dioxide 31 mmol/L (22-32); Chloride 89 mmol/L (98-107); Estimated Glomerular Filt Rate 18 mL/min (>60); Globulin 3.5 g/dL (1.7-4.1); Glucose 309 mg/dL (80-110); Magnesium 2.4 mg/dL (1.6-2.3); Potassium 4.7 mmol/L (3.4-5.1); Sodium 133 mmol/L (137-145); Total Protein 8.1 g/dL (6.3-8.2)
[2023-04-13 08:05] LABS: HEMOLYSIS 60 (0-50)
[2023-04-13 08:06] VITALS: BP 173/78; PULSE 54; RESP 18; O2SAT 97
[2023-04-13 08:48] VITALS: BP 170/83; PULSE 89; RESP 21; O2SAT 95
--- NOTE | 2023-04-13 09:49 | PC.NURSE ---
Pt has oxygen requirement of 2l/nc. Son came to apple picking supervisor pt but left portable oxygen at home. When asked to go back and get it son initially refused stating that if he was going home he was not coming back. Decision made to send pt home via BLS r/t oxygen requirement and no safe discharge. When told, son states this is bull shit and walked out stating he would go and get oxygen and come back.
[2023-04-13 10:10] VITALS: BP 157/68; PULSE 54; O2SAT 97
[2023-04-13 10:30] VITALS: BP 158/68; PULSE 56; RESP 18; O2SAT 99
[2023-04-13 11:07] VITALS: BP 161/72; PULSE 78; RESP 18; O2SAT 94
--- NOTE | 2023-04-13 11:13 | PC.NURSE ---
Son returns to ED with patient's home O2 machine for pt discharge. Son is angry, verbally aggressive and unhelpful, refuses to assist his father into a wheelchair. biochemistry technologist assists pt into wheelchair and assists pt with using the restroom prior to d/c.
--- NOTE | 2023-04-16 13:27 | CM.SWNOTE ---
ED GARMENT EXAMINER follow up Note GARMENT EXAMINER calls patient's POA daughter Evelin (ph. # [phone]) regarding patient's recent ED visit. Evelin reports she is [facility]'s caregiver through [facility] and patient has his needs managed at home and home equipment. It is reported that patient has been having more difficulty with transitions. Evelin states she is working with a [facility] SW, has already been in touch with the [facility] and patient is on a wait list for higher level of care. Daughter denies any further need from GARMENT EXAMINER. Jennyfer Dowling, PUBLIC HEALTH POLICY ANALYST
== END 2023-04-13 11:19 | disposition home or self-care (01) ==
PROVIDERS: Emergency Provider Emergency Medicine; PCP Internal Medicine
DX: S09.90XA Unspecified injury of head, initial encounter (principal); W07.XXXA Fall from chair, initial encounter; Z79.01 Long term (current) use of anticoagulants
CPT/HCPCS: 70450; 80053; 83735; 85025; 99284; 99285